=== PATIENT | female | born 1960 | race Hispanic/Latino ===

== ENCOUNTER 2018-01-06 09:45 | Inpatient (IN) | payer MEDICARE, MEDICAID ==
[2018-01-06 09:56] VITALS: BMI 24.5
[2018-01-06] MEDS ORDERED: HYDROmorphone 1 mg/ml ISec IVP STA ×2 (10:27→13:50)
[2018-01-06 10:59] LABS: BASO # 0.04 K/mm3 (0.0-2.0); BASO % 0.3 % (0.0-3.0); EOS # 0.3 (0.0-0.7); EOS % 2.4 % (1.5-5.0); GRAN # 9.28 (1.4-6.5); GRAN % 72.6 % (50.0-68.0); HEMOGLOBIN 15.7 g/dL (12.0-16.0); LYMPH # 2.4 (1.2-3.4); LYMPH % 18.8 % (22.0-35.0); MEAN CELL VOLUME 90.1 fl (80.0-105.0); MEAN CORPUSCULAR HEMOGLOBIN 30.5 pg (25.0-35.0); MEAN CORPUSCULAR HGB CONC 33.9 g/dl (31.0-37.0); MEAN PLATELET VOLUME 10.6 fl (7.0-11.0); MONO # 0.8 (0.1-0.6); MONO % 5.9 % (1.0-6.0); RBC 5.14 10^6/uL (3.5-6.1); RED CELL DISTRIBUTION WIDTH 12.8 % (11.5-14.5); WHITE BLOOD COUNT 12.8 10^3/ul (4.5-11.0)
[2018-01-06 11:09] LABS: INR 1.01 (0.93-1.08); PARTIAL THROMBOPLASTIN TIME 27.4 Seconds (25.1-36.5); PROTHROMBIN TIME 11.6 SECONDS (9.4-12.5)
[2018-01-06 11:17] LABS: ALB/GLOB RATIO 1.4 (1.1-1.8); ALBUMIN 3.8 g/dL (3.0-4.8); ALT/SGPT 38 U/L (7-56); AST/SGOT 33 U/L (14-36); BLOOD UREA NITROGEN 12 mg/dL (7-21); CALCIUM 9.8 mg/dL (8.4-10.5); GFR AFRICAN-AMERICAN > 60; GFR NON-AFRICAN AMERICAN > 60
--- NOTE | 2018-01-06 11:46 | RAD ---
PROCEDURE: CHEST RADIOGRAPH, 1 VIEW HISTORY: r/o infiltrate COMPARISON: 09/23/[address] place. FINDINGS: LUNGS: The lungs are well inflated and clear. There is a stable calcified granuloma in the left upper lobe. PLEURA: No pneumothorax or pleural fluid seen. CARDIOVASCULAR: Normal. OSSEOUS STRUCTURES: No significant abnormalities. VISUALIZED UPPER ABDOMEN: Normal. OTHER FINDINGS: None. IMPRESSION: No active pulmonary disease.
--- NOTE | 2018-01-06 11:47 | RAD ---
PROCEDURE: Left Hip X-ray Radiographs. HISTORY: fall r/o fx COMPARISON: None. FINDINGS: BONES: The pelvic ring is intact. There is an acute impacted left intertrochanteric fracture. JOINTS: Normal. SOFT TISSUES: Normal. OTHER FINDINGS: None. IMPRESSION: Acute impacted left intertrochanteric fracture.
--- NOTE | 2018-01-06 12:30 | ED PDOC ---
Arrival/HPI - General Chief Complaint: Trauma Time Seen by Provider: 01/06/18 10:19 - History of Present Illness Narrative History of Present Illness (Text): 01/06/18 14:22 Marietta Mancuso is a 57 year old female, whose past medical history includes CAD s/ p PCI with 2 stent placement, COPD, Diabetes Mellitus, Peptic Ulcer Disease, and Diverticulitis, who presents to the emergency department complaining of left hip pain s/p fall. Patient claims the sidewalk was uneven, where she tripped and fell. Patient denies any head injury, LOC, fever, chills, chest pain , shortness of breath, nausea, vomiting, diarrhea, back pain, neck pain, headache, dizziness, or any other complaints. Time/Duration: Prior to Arrival Symptom Onset: Sudden Symptom Course: Unchanged Activities at Onset: Light Context: Walking Past Medical History - Provider Review Nursing Documentation Reviewed: Yes - Infectious Disease Hx of Infectious Diseases: None - Tetanus Immunization Tetanus Immunization: Unknown - Reproductive Menopause: Yes - Cardiac Hx Angina: (chest pain) Hx Hypertension: Yes - Pulmonary Hx Asthma: Yes Hx Chronic Obstructive Pulmonary Disease (COPD): Yes - Neurological Hx Paralysis: No - HEENT Hx HEENT Disorder: No - Renal Hx Renal Disorder: No - Endocrine/Metabolic Hx Endocrine Disorders: Yes Hx Diabetes Mellitus Type 2: Yes (iddm) - Hematological/Oncological Hx Blood Transfusions: No Hx Blood Transfusion Reaction: No - Integumentary Hx Dermatological Disorder: No - Musculoskeletal/Rheumatological Hx Musculoskeletal Disorders: Yes (LUMBAR STENOSIS,C SPINE SX) - Gastrointestinal Hx Gastrointestinal Disorders: Yes Hx Diverticulitis: Yes Other/Comment: COLON POLYPS, - Genitourinary/Gynecological Hx Genitourinary Disorders: No - Psychiatric Hx Emotional Abuse: No Hx Physical Abuse: No Hx Substance Use: No - Surgical History Hx Coronary Stent: Yes (x2 2009) - Anesthesia Hx Anesthesia: Yes Hx Anesthesia Reactions: No Hx Malignant Hyperthermia: No - Suicidal Assessment Feels Threatened In Home Enviroment: No Family/Social History - Physician Review Nursing Documentation Reviewed: Yes Family/Social History: Unknown Family HX Smoking Status: Light Smoker < 10 Cigarettes Daily Hx Alcohol Use: No Hx Substance Use: No Hx Substance Use Treatment: No Allergies/Home Meds Allergies/Adverse Reactions: Allergies MYCINS Allergy (Mild, Uncoded 01/06/18 15:18) ANAPHYLAXIS Home Medications: Home Meds Medication Instructions Recorded Confirmed busPIRone [Buspar] 10 mg PO BID 11/15/15 01/06/18 Aspirin [Ecotrin] 81 mg PO DAILY 02/28/16 01/06/18 Atenolol [Tenormin] 50 mg PO QAM 02/28/16 01/06/18 Pregabalin [Lyrica] 200 mg PO BID 02/28/16 01/06/18 Levocetirizine Dihydrochloride 5 mg PO DAILY 09/16/16 01/06/18 [Xyzal] GlipiZIDE [Glipizide] 10 mg PO DAILY 10/08/16 01/06/18 Montelukast [Singulair] 10 mg PO DAILY 10/08/16 01/06/18 Review of Systems - Physician Review All systems were reviewed & negative as marked: Yes - Review of Systems Constitutional: Normal Eyes: Normal ENT: Normal Respiratory: Normal. absent: SOB, Cough Cardiovascular: Normal. absent: Chest Pain, Palpitations Gastrointestinal: Normal. absent: Abdominal Pain, Diarrhea, Nausea, Vomiting Genitourinary Female: Normal. absent: Dysuria, Frequency, Hematuria, Urine Output Changes Musculoskeletal: Arthralgias (Hip pain). absent: Back Pain, Neck Pain Skin: Normal. absent: Rash Neurological: Normal. absent: Headache, Dizziness Endocrine: Normal Hemo/Lymphatic: Normal Psychiatric: Normal Physical Exam Vital Signs Reviewed: Yes Vital Signs Temp Pulse Resp BP Pulse Ox 01/06/18 13:45 60 18 90/58 L 95 01/06/18 09:55 98.3 F 66 18 114/63 98 Temperature: Afebrile Blood Pressure: Normal Pulse: Regular Respiratory Rate: Normal Appearance: Positive for: Well-Appearing, Non-Toxic, Comfortable Pain Distress: None Mental Status: Positive for: Alert and Oriented X 3 - Systems Exam Head: Present: Atraumatic, Normocephalic Pupils: Present: PERRL Extroacular Muscles: Present: EOMI Conjunctiva: Present: Normal Mouth: Present: Moist Mucous Membranes Neck: Present: Normal Range of Motion Respiratory/Chest: Present: Clear to Auscultation, Good Air Exchange. No: Respiratory Distress, Accessory Muscle Use Cardiovascular: Present: Regular Rate and Rhythm, Normal S1, S2. No: Murmurs Abdomen: Present: Normal Bowel Sounds. No: Tenderness, Distention, Peritoneal Signs Back: Present: Normal Inspection. No: CVA Tenderness, Midline Tenderness, Paraspinal Tenderness Upper Extremity: Present: Normal Inspection. No: Cyanosis, Edema Lower Extremity: Present: Tenderness (tenderness diffused through left hip. minimal movement of left hip). No: Edema, CALF TENDERNESS Neurological: Present: GCS=15, CN II-XII Intact, Speech Normal Skin: Present: Warm, Dry, Normal Color. No: Rashes Psychiatric: Present: Alert, Oriented x 3, Normal Insight, Normal Concentration Medical Decision Making ED Course and Treatment: 01/06/18 12:29 Impression: 57 year old female presents to the emergency department complaining of left hip pain s/p fall. Plan: -- EKG -- Labs -- Lipid Panel -- Magnesium, Phosphorous -- Duoneb -- Tenormin -- Glucotrol -- Dilaidid -- HumuLIN -- Reassess and disposition Progress Notes: Case discussed with Dr. Burciaga, who is aware and agrees with plan. Accepts pt into his service. Case discussed with Dr. Donahue, who is aware and agrees with plan. 01/06/18 14:34 EKG reviewed, shows Sinus tachycardia at 68 bpm. NST/T wave changes. - Lab Interpretations Lab Results: 01/07/18 06:00 01/07/18 06:00 Lab Results 01/07/18 10:57: POC Glucose (mg/dL) 187 H 01/07/18 07:27: POC Glucose (mg/dL) 193 H 01/07/18 06:00: TSH 3rd Generation 0.50 01/07/18 06:00: Hemoglobin A1c 11.8 H 01/07/18 06:00: Sodium 140, Potassium 4.1, Chloride 106, Carbon Dioxide 28, Anion Gap 10, BUN 6 L, Creatinine 0.5 L, Est GFR ( Amer) > 60, Est GFR ( Non-Af Amer) > 60, Random Glucose 181 H, Calcium 8.7, Phosphorus 2.3 L, Magnesium 1.6 L, Total Bilirubin 0.5, AST 36, ALT 47, Alkaline Phosphatase 56, Total Protein 5.6 L, Albumin 3.2, Globulin 2.4, Albumin/Globulin Ratio 1.3, Triglycerides 209 H, Cholesterol 203 H, LDL Cholesterol Direct 122, HDL Cholesterol 43 01/07/18 06:00: WBC 8.4 D, RBC 4.43, Hgb 13.2, Hct 40.4, MCV 91.2, MCH 29.8, MCHC 32.7, RDW 13.1, Plt Count 162, MPV 10.3, Gran % 65.3, Lymph % (Auto) 23.5, [place] % (Auto) 10.5 H, Eos % (Auto) 0.5 L, Baso % (Auto) 0.2, Gran # 5.47, Lymph # (Auto) 2.0, [place] # (Auto) 0.9 H, Eos # (Auto) 0.0, Baso # (Auto) 0.02 01/06/18 23:11: POC Glucose (mg/dL) 135 H 01/06/18 21:30: WBC 11.1 H, RBC 4.45, Hgb 13.4 D, Hct 40.4, MCV 90.8, MCH 30.1 , MCHC 33.2, RDW 12.9, Plt Count 179, MPV 10.1, Gran % 75.2 H, Lymph % (Auto) 15.6 L, [place] % (Auto) 8.9 H, Eos % (Auto) 0.1 L, Baso % (Auto) 0.2, Gran # 8.35 H, Lymph # (Auto) 1.7, [place] # (Auto) 1.0 H, Eos # (Auto) 0.0, Baso # (Auto) 0.02 01/06/18 15:12: POC Glucose (mg/dL) 260 H 01/06/18 14:18: POC Glucose (mg/dL) 233 H 01/06/18 13:30: Blood Type Confirm B POSITIVE 01/06/18 11:27: Blood Type B POSITIVE, Antibody Screen Negative, BBK History Checked No verified bt 01/06/18 10:40: Sodium 135, Potassium 4.7, Chloride 99, Carbon Dioxide 25, Anion Gap 15, BUN 12, Creatinine 0.5 L, Est GFR ( Amer) > 60, Est GFR ( Non-Af Amer) > 60, Random Glucose 407 H* D, Calcium 9.8, Total Bilirubin 0.5, AST 33, ALT 38, Alkaline Phosphatase 72, Total Protein 6.5, Albumin 3.8, Globulin 2.7, Albumin/Globulin Ratio 1.4 01/06/18 10:40: PT 11.6, INR 1.01, APTT 27.4 01/06/18 10:40: WBC 12.8 H D, RBC 5.14, Hgb 15.7, Hct 46.3, MCV 90.1, MCH 30.5, MCHC 33.9, RDW 12.8, Plt Count 193, MPV 10.6, Gran % 72.6 H, Lymph % (Auto) 18.8 L, [place] % (Auto) 5.9, Eos % (Auto) 2.4, Baso % (Auto) 0.3, Gran # 9.28 H, Lymph # (Auto) 2.4, [place] # (Auto) 0.8 H, Eos # (Auto) 0.3, Baso # (Auto) 0.04 - RAD Interpretation Radiology Orders: 01/06/18 10:28 CHEST ONE VIEW [RAD] Stat HIP MIN 2V W/ PELVIS LT [RAD] Stat 01/06/18 15:57 FLUOROSCOPY UP TO 1 HOUR [RAD] Urgent - Medication Orders Current Medication Orders: Acetaminophen (Tylenol 325mg Tab) 650 mg PO Q4H PRN PRN Reason: Pain, moderate (4-7) Albuterol/Ipratropium (Duoneb 3 Mg/0.5 Mg (3 Ml) Ud) 3 ml IH Q4H PRN PRN Reason: Shortness of Breath Last Admin: 01/07/18 09:00 Dose: 3 ml Atenolol (Tenormin) 50 mg PO DAILY [facility] Last Admin: 01/07/18 09:45 Dose: 50 mg MAR Pulse and Blood Pressure Document 01/07/18 09:45 DSZ (Rec: 01/07/18 09:46 DSZ [id number]) Pulse Pulse Rate (60-90) 90 Blood Pressure Blood Pressure (100/60-150/90) 137/66 Docusate Sodium (Colace) 100 mg PO BID [facility] Last Admin: 01/07/18 17:37 Dose: 100 mg Enoxaparin Sodium (Lovenox) 30 mg SC DAILY [facility] PRN Reason: Protocol Last Admin: 01/07/18 10:02 Dose: 30 mg Subcutaneous Administrations Document 01/07/18 10:02 DSZ (Rec: 01/07/18 10:02 DSZ [id number]) Injection Site MAR Injection Site Right Abdomen Charges for Administration # of Subcutaneous Administrations 1 Glipizide (Glucotrol) 10 mg PO 1630 [facility] Last Admin: 01/07/18 16:00 Dose: 10 mg Sodium Chloride (Sodium Chloride 0.9%) 1,000 mls @ 100 mls/hr IV .Q10H [facility] Last Admin: 01/06/18 13:12 Dose: 100 mls/hr eMAR Start Stop Document 01/06/18 13:12 RG (Rec: 01/06/18 13:12 RG [id number]) Intravenous Solution Start Date 01/06/18 Start Time 13:12 Insulin Detemir (Levemir) 15 unit SC QPM [facility] Last Admin: 01/07/18 17:39 Dose: 15 unit MAR Blood Glucose Document 01/07/18 17:39 DSZ (Rec: 01/07/18 17:39 DSZ [id number]) Blood Glucose Finger Stick Blood Glucose (70-120) 226 Subcutaneous Administrations Document 01/07/18 17:39 DSZ (Rec: 01/07/18 17:39 DSZ [id number]) Injection Site MAR Injection Site Right Arm Charges for Administration # of Subcutaneous Administrations 1 Insulin Human Regular (Humulin R Med) 0 units SC ACHS [facility] PRN Reason: Protocol Last Admin: 01/07/18 16:45 Dose: 3 units MAR Blood Glucose Document 01/07/18 16:45 DSZ (Rec: 01/07/18 16:45 DSZ [id number]) Blood Glucose Finger Stick Blood Glucose (70-120) 226 Subcutaneous Administrations Document 01/07/18 16:45 DSZ (Rec: 01/07/18 16:45 DSZ [id number]) Injection Site MAR Injection Site Right Arm Charges for Administration # of Subcutaneous Administrations 1 Ketorolac Tromethamine (Toradol) 60 mg IM Q8H PRN PRN Reason: Pain, severe (8-10) Stop: 01/12/18 11:03 Morphine Sulfate (Morphine) 2 mg IVP Q4H PRN PRN Reason: Pain, moderate (4-7) Last Admin: 01/07/18 20:01 Dose: 2 mg MAR Pain Assessment Document 01/07/18 20:01 MAD (Rec: 01/07/18 20:02 [id number]) Pain Reassessment Is this a pain reassessment? Yes Sleep Is patient sleeping during reassessment? No Presence of Pain Presence of Pain Yes Pain Scale Used Pain Scale Used Numeric Location Left, Right or Bilateral Left Pain Location Body Site Hip Description Description Throbbing Intensity of Pain at present 8 Acceptable Level of Pain 3 Pain Behavior Restlessness Aggravating Factors Changing Position Exercise/Activity Alleviating Factors/Management Medication Techniques Alleviating Factors Medication IVP Administration Document 01/07/18 20:01 MAD (Rec: 01/07/18 20:02 [id number]) Charges for Administration # of IVP Administrations 1 Sitagliptin Phosphate (Januvia) 100 mg PO DAILY [facility] Last Admin: 01/07/18 09:43 Dose: 100 mg Discontinued Medications Hydromorphone HCl (Dilaudid) 1 mg IVP STAT STA Stop: 01/06/18 10:28 Last Admin: 01/06/18 10:47 Dose: 1 mg MAR Pain Assessment Document 01/06/18 10:47 RG (Rec: 01/06/18 10:51 [id number] Pain Reassessment Is this a pain reassessment? Yes IVP Administration Document 01/06/18 10:47 RG (Rec: 01/06/18 10:51 [id number] Charges for Administration # of IVP Administrations 1 Hydromorphone HCl (Dilaudid) 1 mg IVP STAT STA Stop: 01/06/18 13:51 Last Admin: 01/06/18 14:27 Dose: 1 mg MAR Pain Assessment Document 01/06/18 14:27 (Rec: 01/06/18 14:27 [id number] Pain Reassessment Is this a pain reassessment? Yes Sleep Is patient sleeping during reassessment? Yes Pain Scale Used Pain Scale Used Numeric Location Pain Location Body Site Hip Description Description Constant Pain Behavior Moaning IVP Administration Document 01/06/18 14:27 RG (Rec: 01/06/18 14:27 [id number] Charges for Administration # of IVP Administrations 1 Hydromorphone HCl (Dilaudid) 0.5 mg IVP Q15M PRN PRN Reason: Pain, moderate (4-7) Stop: 01/06/18 19:35 Sodium Chloride (Sodium Chloride 0.9%) 1,000 mls @ 75 mls/hr IV .[id number] NOELLE Stop: 01/06/18 19:46 Last Admin: 01/07/18 05:49 Dose: 75 mls/hr eMAR Start Stop Document 01/07/18 05:49 MAD (Rec: 01/07/18 05:50 MAD [id number]) Intravenous Solution Start Date 01/07/18 Start Time 05:50 Magnesium Sulfate/Dextrose (Magnesium Sulfate 1 Gm/100 Ml D5w) 1 gm in 100 mls @ 100 mls/hr IVPB ONCE ONE Stop: 01/07/18 10:26 Last Admin: 01/07/18 10:12 Dose: 100 mls/hr eMAR Start Stop Document 01/07/18 10:12 DSZ (Rec: 01/07/18 10:12 DSZ [id number]) Intravenous Solution Start Date 01/07/18 Start Time 10:12 Potassium Phosphate 15 mmole/ (Dextrose) 255 mls @ 42.5 mls/hr IVPB ONCE ONE Stop: 01/07/18 15:27 Last Admin: 01/07/18 11:09 Dose: 42.5 mls/hr eMAR Start Stop Document 01/07/18 11:09 DSZ (Rec: 01/07/18 11:09 DSZ [id number]) Intravenous Solution Start Date 01/07/18 Start Time 11:09 Insulin Human Regular (Humulin R) 4 units IVP STAT STA Stop: 01/06/18 12:45 Last Admin: 01/06/18 13:12 Dose: 4 units MAR Blood Glucose Document 01/06/18 13:12 RG (Rec: 01/06/18 13:12 [id number]) Blood Glucose Finger Stick Blood Glucose (70-120) 402 IVP Administration Document 01/06/18 13:12 RG (Rec: 01/06/18 13:12 [id number]) Charges for Administration # of IVP Administrations 1 Oxycodone/Acetaminophen (Percocet 5/325 Mg Tab) 1 tab PO ONCE ONE Stop: 01/07/18 08:27 Last Admin: 01/07/18 08:55 Dose: 1 tab [facility] Pain Assessment Document 01/07/18 08:55 DSZ (Rec: 01/07/18 08:56 DSZ [id number]) Pain Reassessment Is this a pain reassessment? No Sleep Is patient sleeping during reassessment? No Presence of Pain Presence of Pain Yes Pain Scale Used Pain Scale Used Numeric Location Left, Right or Bilateral Left Pain Location Body Site Hip Description Description Intermittent Intensity of Pain at present 9 Acceptable Level of Pain 1 Pain Behavior Withdrawal from Touch Aggravating Factors Contant Alleviating Factors/Management Medication Techniques Alleviating Factors Medication Re-Assess: [facility] Pain Assessment Document 01/07/18 09:55 DSZ (Rec: 01/07/18 11:54 DSZ [id number]) Pain Reassessment Is this a pain reassessment? Yes Sleep Is patient sleeping during reassessment? No Presence of Pain Presence of Pain Yes Pain Scale Used Pain Scale Used Numeric Location Left, Right or Bilateral Left Pain Location Body Site Hip Description Description Intermittent Intensity of Pain at present 5 Acceptable Level of Pain 3 Pain Behavior Withdrawal from Touch Aggravating Factors Contant Alleviating Factors/Management Medication Techniques Alleviating Factors Medication Pneumococcal Polyvalent Vaccine (Pneumovax 23 Vaccine) 0.5 ml IM .ONCE ONE Stop: 01/06/18 21:01 Last Admin: 01/07/18 19:12 Dose: Immunization Registry Document 01/07/18 19:12 DSZ (Rec: 01/07/18 19:12 DSZ [id number]) Immunization Registry Consent Date 01/06/18 - Scribe Statement The provider has reviewed the documentation as recorded by the Scribava Boone All medical record entries made by the Scribava were at my direction and personally dictated by me. I have reviewed the chart and agree that the record accurately reflects my personal performance of the history, physical exam, medical decision making, and the department course for this patient. I have also personally directed, reviewed, and agree with the discharge instructions and disposition. Disposition/Present on Arrival - Present on Arrival Any Indicators Present on Arrival: Yes History of DVT/PE: No History of Uncontrolled Diabetes: Yes Urinary Catheter: No History of Decub. Ulcer: No History Surgical Site Infection Following: None - Disposition Have Diagnosis and Disposition been Completed?: Yes Diagnosis: Hip fracture, Hyperglycemia Disposition: HOSPITALIZED Disposition Time: 12:30 Condition: STABLE
[2018-01-06] MEDS ORDERED: Insulin Regular 1 UNITS/0.01 ML ML IVP STA (12:44)
[2018-01-06] MEDS: Sodium Chloride 0.9% 1,000 ML IV SCH (13:12)
[2018-01-06] MEDS ORDERED: Insulin Human NPH/Reg 70/30 Vial(3 ml) SC STA (13:58)
--- NOTE | 2018-01-06 14:38 | HP ---
HISTORY OF PRESENT ILLNESS: The patient is a 57 year old woman with a past medical history of CAD s/p PCI with stent placement x 2 and COPD who presented to [facility] ED for evaluation of acute onset of left hip pain s/p mechanical fall. The patient reports that she was in her usual state of health until the day of presentation to the ED when she tripped and sustained a fall to her left side. She had immediate onset of severe pain and called EMS who brought her to the ED. Examination in the ED disclosed an acute impacted left intertrochanteric fracture. She was evaluated by Dr. Pratt (Orthopedic Surgery) with the plan to take her promptly to the OR after obtaining cardiac clearance from her director of marketing analytics, Dr. Benjamin, owing to her underlying cardiac disease. PAST MEDICAL HISTORY: As per HPI, also T2DM, PUD, anxiety disorder and diverticulosis with prior admissions for diverticulitis. PAST SURGICAL HISTORY: Cholecystectomy, appendectomy, partial colectomy secondary to extensive diverticulosis and diskectomy with fusion of C4-C6. ALLERGIES: Macrolides (cause rash) and IV contrast (causes rash). HOME MEDICATIONS: Ventolin HFA 2 puffs q. 4 hours p.r.n. wheeze, Advair 250/50 one puff q. 12 hours, Singulair 10 mg p.o. daily, Atenolol 50 mg p.o. daily, ASA 81 mg p.o. daily, Glipizide XL 10 mg p.o. daily, Lyrica 200 mg p.o. b.i.d. and Risperidone 1 mg p.o. at bedtime. FAMILY HISTORY: Noncontributory. SOCIAL HISTORY: The patient reports an active 20-pack year smoking and social alcohol use. She denies illicit drug abuse. REVIEW OF SYSTEMS: The patient denies chest pain, palpitations, exertional dyspnea, orthopnea, lower extremity edema, claudication, presyncope or headaches. The remainder of review of systems is as per HPI. PHYSICAL EXAMINATION: VITAL SIGNS: Temperature 98.3, pulse 66, blood pressure 114/63, respiratory rate 18, oxygen saturation 98% on room air. GENERAL: Moderate distress secondary to left hip pain. HEENT: Normocephalic, atraumatic. PERRL, EOMI. No scleral icterus. No conjunctival pallor. NECK: Supple with full range of motion. No JVD. No bruits. LUNGS: Clear to auscultation. CARDIOVASCULAR: Regular rate and rhythm. Normal S1 and S2. ABDOMEN: Normoactive bowel sounds. Soft, nontender and nondistended. EXTREMITIES: Decreased range of motion to left lower extremity secondary to pain. No edema. NEUROLOGIC: Awake, alert and oriented x 3. No focal motor deficits. LABORATORY DATA: CBC reviewed and unremarkable. CMP reviewed and unremarkable with the exception of a glucose of 407. IMAGING STUDIES: 1. Chest x-ray demonstrates no acute pathology. 2. Left pelvic x-ray demonstrates acute impacted left intertrochanteric fracture. ASSESSMENT: The patient is a 57 year old woman with a past medical history of hypertension, T2DM with diabetic neuropathy, CAD s/p PCI with stent placement and COPD who presented s/p mechanical fall with a sustained left hip fracture and who was admitted for orthopedic repair. PLAN: 1. Acute fracture of the left hip. X-rays reviewed and the case was discussed with Dr. Pratt of Orthopedic Surgery. He is requesting cardiac clearance from Dr. Benjamin prior to taking the patient to the OR. 2. Hypertension. Blood pressure controlled. Resume Atenolol 50 mg p.o. daily. 3. COPD. Continue supplemental oxygen and bronchodilators as needed. 4. Type 2 diabetes mellitus with diabetic neuropathy. Resume Glipizide 10 mg p.o. daily and start medium-dose insulin sliding scale. 5. CAD s/p PCI with stent placement. We will hold aspirin in anticipation of OR and resume when cleared from orthopedic standpoint. Continue Atenolol 50 mg p.o. daily as above. The patient declines statin therapy because of prior history of myopathy. 6. Anxiety. The patient is on Xanax on an outpatient basis but we will hold this in anticipation of OR. 7. Prophylaxis. We will start Protonix for GI prophylaxis and initiate DVT prophylaxis when okay as per Orthopedic Surgery. CODE STATUS: Full code. Yasmany Alston MD [facility]
[2018-01-06] MEDS ORDERED: Insulin Regular 100 units/ml ONE (15:33)
[2018-01-06] MEDS ORDERED: Bupivacaine 0.5% Inj(30mL) ONE (15:47)
[2018-01-06] MEDS ORDERED: Propofol 10 mg/ml Inj (20 ML) ONE (15:48)
[2018-01-06] MEDS ORDERED: Midazolam 2 MG/2 ML VIAL ONE (15:49)
[2018-01-06] MEDS ORDERED: Rocuronium 10 mg/ml (5 ml) ONE (15:53)
[2018-01-06] MEDS ORDERED: CeFAZolin 1 gm in NS 100ml IVPB ONE (16:28)
[2018-01-06] MEDS ORDERED: ePHEDrine 50 mg/ml Inj ONE (16:49)
[2018-01-06] MEDS ORDERED: Glycopyrrolate 0.2 mg/ml (2ml vial) ONE (17:11)
[2018-01-06] MEDS ORDERED: HYDROmorphone 0.5 mg/0.5 ml ISec IVP PRN (17:35)
[2018-01-06] MEDS ORDERED: Sodium Chloride 0.9% 1,000 ML IV SCH (17:45)
--- NOTE | 2018-01-06 17:46 | CARD ---
APPROVED REPORT EKG Measurement Heart [id number] <Conclusion> Normal sinus rhythm Normal ECG
[2018-01-06] MEDS ORDERED: HYDROmorphone 0.5 mg/0.5 ml ISec ONE ×2 (17:57→18:14)
[2018-01-06] MEDS: Insulin Detemir 100 units/ml Vial (Levemir) SC SCH (19:29)
[2018-01-06] MEDS ORDERED: Pneumococcal 23-Valent Vaccine IM ONE (21:00)
[2018-01-06] MEDS ORDERED: Influenza Vaccine 60 mcg/0.5 mL SYR (4YR UP) IM ONE (21:00)
[2018-01-06 21:32] LABS: BASO # 0.02 K/mm3 (0.0-2.0); BASO % 0.2 % (0.0-3.0); EOS % 0.1 % (1.5-5.0); GRAN # 8.35 (1.4-6.5); GRAN % 75.2 % (50.0-68.0); HEMOGLOBIN 13.4 g/dL (12.0-16.0); LYMPH # 1.7 (1.2-3.4); LYMPH % 15.6 % (22.0-35.0); MEAN CELL VOLUME 90.8 fl (80.0-105.0); MEAN CORPUSCULAR HEMOGLOBIN 30.1 pg (25.0-35.0); MEAN CORPUSCULAR HGB CONC 33.2 g/dl (31.0-37.0); MEAN PLATELET VOLUME 10.1 fl (7.0-11.0); MONO % 8.9 % (1.0-6.0); RBC 4.45 10^6/uL (3.5-6.1); RED CELL DISTRIBUTION WIDTH 12.9 % (11.5-14.5); WHITE BLOOD COUNT 11.1 10^3/ul (4.5-11.0)
[2018-01-06] MEDS: Insulin Reg-MEDIUM-Coverage SC SCH (23:12)
[2018-01-06] MEDS: Morphine 2 mg/ml ISec IVP PRN (23:15)
--- NOTE | 2018-01-06 23:51 | CON ---
DATE: 01/06/2018 ORTHOPEDIC CONSULTATION HISTORY OF PRESENT ILLNESS: The patient is a 57-year-old female, who slipped and fell early this morning, came to the ER with tremendous hip pain by ambulance and x-ray shows displaced intertrochanteric fracture of left hip. No fractures previous in her life, but this fracture been causing tremendous pain. We will plan doing a surgery as soon as possible right today after she is cleared by Dr. Vidales because that is her heart doctor and Dr. Yasmany Alston is her medical doctor. So once she is cleared, we will do her surgery this afternoon with a Peritroch soheila from [employer] and then the pain will be much less and will be able to get up by the bed and then she may either just go into her subacute rehab in a couple of days once her surgery is successful. the risks and benefits and she may need blood replacement. Ra Pratt DO [facility]
--- NOTE | 2018-01-07 02:06 | CON ---
DATE: 01/06/2018 SERVICE: Cardiology. REASON FOR CONSULTATION: Preop evaluation, risk stratification for hip surgery status post fall - mechanical; history of coronary artery disease status post stent 2008. BRIEF CLINICAL HISTORY: This is a 57-year-old female with past medical history significant for COPD, extensive tobacco abuse, diabetes, hypertension, hyperlipidemia, coronary artery disease status post PTCA in 2008 and subsequent multiple stress tests were normal, who had mechanical fall and sustained fracture of the left hip requiring OR internal fixation. Denies any chest pain, denies shortness breath, denies any palpitation, denies any loss of consciousness, denies any dizziness. PAST MEDICAL HISTORY: Significant for diabetes, hypertension, hyperlipidemia, coronary artery disease status post stent in the past in 2008. The patient has had multiple stress tests done in 2013, 2014, 2015, and 2016. The most recent stress test in 2017, 05/03/2017, the test showed normal myocardial perfusion study, a fixed defect, no reversible ischemia, ejection fraction 63 percent. On comparing with the last study dated 03/25/2016, no significant change dated 05/03/2017. Patient also had echocardiography, 04/28/2017, that showed ejection fraction 25%, trace mitral regurgitation and mild tricuspid regurgitation. CURRENT MEDICATIONS: The patient is taking BuSpar, pregabalin, Singulair, glipizide, atenolol, aspirin, albuterol. ALLERGIES: QUESTIONABLE CONTRAST DYE AND ERYTHROMYCIN, GETS ANAPHYLACTIC. REVIEW OF THE SYSTEMS: As per HPI. PHYSICAL EXAMINATION: VITAL SIGNS: As follows: Temperature afebrile, heart rate 60, blood pressure 114/63. HEENT: PERRLA. Extraocular muscles intact. NECK: Supple. No carotid bruit. No thyromegaly. CHEST: Clear to auscultation. HEART: S1 and S2 regular. ABDOMEN: Soft. EXTREMITIES: Clubbing and cyanosis negative. LABORATORY DATA: Blood workup as follows: WBC 12.8, hemoglobin 15.7, hematocrit 46.3, and platelet count 193. Chemistry shows sodium 135, potassium 4.7, chloride 99, carbon dioxide 25, anion gap of 15, BUN 12, and BUN 0.5, glucose 407, total protein 6.5, albumin 3.7, albumin-globulin ratio 1.4. EKG shows normal sinus, no acute ST-T changes noted. IMPRESSION: Status post mechanical fall, hip fracture left, coronary artery disease status post stent in 2008, subsequent multiple stress tests including last year in May, essentially negative. Last echo shows preserved left ventricular function, ejection fraction 55%, trace mitral regurgitation, mild tricuspid regurgitation, diabetes, hypertension, hyperlipidemia, poorly-controlled diabetes with sugar 407, history of multiple surgeries including discectomy, appendectomy, and diverticular colon disease status post part of the intestine was removed - partial colectomy, history of cholecystectomy as mentioned, and C4-C8 discectomy was done because of prolapsed intervertebral disk. The patient actively is a tobacco abuser. When we put together everything, the patient is a moderate risk for surgery , but no contraindication. The patient can go with a moderate risk, no evidence of ischemia, no evidence of arrhythmia, no evidence of congestive heart failure. Recent stress test in May was essentially negative. We will clear the patient to go for surgery, continue perioperative beta-darrion with moderate risk. We will give 10 units of subcutaneous insulin stat to lower the sugar and check after half an hour, talked to the nurse, if it okay patient will be cleared to go for surgery. Will follow up perioperatively. We will get lipid profile, TSH, hemoglobin A1c tomorrow. Thank you, Dr. Pratt/Dr. Alston, for providing us the opportunity in taking care of the patient, Marietta Mancuso. Katerine Vidales MD cc: DO Yasmany George MD
[2018-01-07] MEDS: Albuterol-Ipratrop 3 mg / 0.5 (3 ml) UD IH PRN ×3 (05:12→23:56)
[2018-01-07] MEDS: Morphine 2 mg/ml ISec IVP PRN ×4 (06:16→20:01)
[2018-01-07 06:42] LABS: BASO # 0.02 K/mm3 (0.0-2.0); BASO % 0.2 % (0.0-3.0); EOS % 0.5 % (1.5-5.0); GRAN # 5.47 (1.4-6.5); GRAN % 65.3 % (50.0-68.0); HEMOGLOBIN 13.2 g/dL (12.0-16.0); LYMPH % 23.5 % (22.0-35.0); MEAN CELL VOLUME 91.2 fl (80.0-105.0); MEAN CORPUSCULAR HEMOGLOBIN 29.8 pg (25.0-35.0); MEAN CORPUSCULAR HGB CONC 32.7 g/dl (31.0-37.0); MEAN PLATELET VOLUME 10.3 fl (7.0-11.0); MONO # 0.9 (0.1-0.6); MONO % 10.5 % (1.0-6.0); RBC 4.43 10^6/uL (3.5-6.1); RED CELL DISTRIBUTION WIDTH 13.1 % (11.5-14.5); WHITE BLOOD COUNT 8.4 10^3/ul (4.5-11.0)
[2018-01-07 07:04] LABS: LDL CHOLESTEROL 122 mg/dL (0-129)
[2018-01-07 07:13] LABS: ALB/GLOB RATIO 1.3 (1.1-1.8); ALBUMIN 3.2 g/dL (3.0-4.8); ALT/SGPT 47 U/L (7-56); AST/SGOT 36 U/L (14-36); BLOOD UREA NITROGEN 6 mg/dL (7-21); CALCIUM 8.7 mg/dL (8.4-10.5); GFR AFRICAN-AMERICAN > 60; GFR NON-AFRICAN AMERICAN > 60; HDL CHOLESTEROL 43 mg/dL (29-60)
[2018-01-07] MEDS: Insulin Reg-MEDIUM-Coverage SC SCH ×4 (08:03→22:22)
--- NOTE | 2018-01-07 08:25 | OP ---
PROCEDURE DATE: 01/06/2018 PREOPERATIVE DIAGNOSIS: Displaced intertrochanteric fracture, left hip. POSTOPERATIVE DIAGNOSIS: Displaced intertrochanteric fracture, left hip. PROCEDURE: Open reduction and internal fixation with Biomet Affixus nail using a nail 125 degree angle, 11 mm wide, and 180 mm long. The lag screw was 100 mm long x 10.5 mm with one locking screw 36 mm to the distal part of the soheila. SURGEON: Ra Pratt DO [employer] SURGEON: Dr. Gomes, general rn surgical pcu. TYPE OF ANESTHESIA: General via endotracheal tube. SUMMARY: The patient is a 57-year-old female who suffered a fall prior to admission today at 7:00 a.m. and came to the ER, found to have an intertrochanteric fracture of left hip displaced. The tremendous pain was not controlled with pain medications, so we got medical clearance from the attending and the cardiac doctor and performed ORIF with the Biomet peritrochanteric Affixus nail with general anesthesia via endotracheal tube. DESCRIPTION OF PROCEDURE: The patient was taken to the OR, the left hip prepped and draped in sterile fashion. Antibiotics given preop, Ancef 1 gm. X-rays showed that we could reduce the fracture with traction and rotation, and we made the incision to open the fracture 5 cm proximal to the greater trochanter from 2 cm going through the fascia and soft tissue entering the greater trochanter with a threaded-tip guidewire with the help of the C-arm. when it was in good position. We over-reamed that with a 17 mm reamer for 8 cm. Then with the beaded-tip guidewire inserted, we put in the 180 mm long Affixus intramedullary nail and positioned it so that the device for the lag screw was in line with the calcar both on AP and lateral projection and then we did that over, drilled with a reamer when it was in a good position for the planned lag screw which was going to be 100 mm long, and this was put in. Because the bone was so hard, firm and solid, not osteopenic, we had to use a tap to tap that area so we did not split the femoral head, and we did this tap, then put in the 100 mm long lag screw into firm, good subchondral bone, then secured the nail to the soheila with the locking device and put the traction off and put the locking screw distally with a third incision to lock the soheila distally. The second incision was put over the lag screw. Wounds were irrigated with normal saline and closed in layers utilizing 0-Vicryl for the deep layer, 2-0 Vicryl for the subcutaneous tissue, and skin with stainless steel foster. The patient was taken to the recovery room in good condition. Ra Pratt DO GALEN
[2018-01-07] MEDS ORDERED: Oxycodone/Acetaminophen 5/325 mg Tab PO ONE (08:26)
--- NOTE | 2018-01-07 08:40 | CP.PCM.PN ---
Subjective - Date & Time of Evaluation Date of Evaluation: 01/07/18 Time of Evaluation: 07:20 - Subjective Subjective: Seen and examined by me and Dr. Benjamin Reason for consult and follow up: Pre-op evaluation, risk stratification for left hip surgery post fall, status post left hip surgery, history of coronary artery disease post PTCA stent, in 2008., COPD,Diabetes, hypertension, hyperlipidemia, Denies chest pain,shortness of breath, complaints of 9/10 left hip pain Objective - Vital Signs/Intake and Output Vital Signs (last 24 hours): Temp Pulse Resp BP Pulse Ox 100.5 F H 91 H 18 144/64 90 L 01/07/18 07:30 01/07/18 07:30 01/07/18 07:30 01/07/18 07:30 01/07/18 07:30 Intake and Output: 01/07/18 01/07/18 06:59 18:59 Intake Total 1515 Output Total 600 Balance 915 - Medications Medications: Current Medications Albuterol/Ipratropium (Duoneb 3 Mg/0.5 Mg (3 Ml) Ud) 3 ml IH Q4H PRN PRN Reason: Shortness of Breath Last Admin: 01/07/18 05:12 Dose: 3 ml Atenolol (Tenormin) 50 mg PO DAILY [facility] Docusate Sodium (Colace) 100 mg PO BID [facility] Enoxaparin Sodium (Lovenox) 30 mg SC DAILY [facility] PRN Reason: Protocol Glipizide (Glucotrol) 10 mg PO 1630 [facility] Sodium Chloride (Sodium Chloride 0.9%) 1,000 mls @ 100 mls/hr IV .Q10H [facility] Last Admin: 01/06/18 13:12 Dose: 100 mls/hr Insulin Detemir (Levemir) 15 unit SC QPM [facility] Last Admin: 01/06/18 19:29 Dose: Not Given Insulin Human Regular (Humulin R Med) 0 units SC ACHS [facility] PRN Reason: Protocol Last Admin: 01/07/18 08:03 Dose: 1 units Morphine Sulfate (Morphine) 2 mg IVP Q4H PRN PRN Reason: Pain, moderate (4-7) Last Admin: 01/07/18 06:16 Dose: 2 mg Sitagliptin Phosphate (Januvia) 100 mg PO DAILY [facility] - Labs Labs: 01/07/18 06:00 01/07/18 06:00 PT 11.6 SECONDS (9.4-12.5) 01/06/18 10:40 INR 1.01 (0.93-1.08) 01/06/18 10:40 APTT 27.4 Seconds (25.1-36.5) 01/06/18 10:40 Assessment and Plan - Assessment and Plan (Free Text) Assessment: Post fall, status post left hip surgery, history of coronary artery disease post PTCA stent, in 2008.subsequent stress test were normal. COPD- well controlled ,Diabetes on insulin, blood sugar levels below 200 mg/dl hypertension well controlled with Tenormin. hyperlipidemia, Plan: Continue Tenormin 50 mg daily, continue Lovenox, continue insulin as ordered Left hip pain- given Morphine 2mg IV PRN Physical therapy for mobilization and walking BP Vital signs stable Lab reviewed Will follow up Plan and treatment reviewed with Dr. Benjamin
[2018-01-07] MEDS ORDERED: Magnesium Sulfate 1 gm in D5W 1 GM/100 ML BAG IVPB ONE (09:27)
[2018-01-07] MEDS ORDERED: Potassium Phosphate 15 MMOLE in Dextrose 5% In Water 250 ML IVPB ONE (09:28)
[2018-01-07] MEDS: Enoxaparin 30 mg Syringe SC SCH (10:02)
--- NOTE | 2018-01-07 12:48 | RAD ---
PROCEDURE: Fluoroscopy up to 1 hour HISTORY: O.R.I.F. LEFT FEMUR COMPARISON: TECHNIQUE: Fluoroscopy was provided in the operating room. 93 seconds of fluoro time were used. Five images were submitted FINDINGS: The study shows placement of a compression screw and soheila in the left hip IMPRESSION: As above
--- NOTE | 2018-01-07 13:20 | PN ---
DATE: 01/07/2018 LOCATION: Patient in room 562, bed 2. REASON FOR CONSULTATION AND FOLLOWUP: Status post fall and hip fracture; status post surgery for hip fracture; coronary artery disease, status post stent insertion; hypertension; diabetes; hyperlipidemia. SUBJECTIVE: Patient lying flat in bed without any cardiac symptoms like chest pain, shortness of breath, palpitations. She is complaining of pain at the hip fracture site where she had surgery. PHYSICAL EXAMINATION VITAL SIGNS: Blood pressure 144/64, yesterday pressure was 99/64 and 106/54; respirations 18; pulse 91; temperature 100.5. HEENT: Head is normocephalic. Eyes: Pupils are normal. Conjunctivae normal. Nose and throat normal. NECK: JVP low. Carotids equal. THORAX: AP diameter normal. LUNGS: Clear. CARDIOVASCULAR: S1 and S2. ABDOMEN: Soft, no tenderness. No organomegaly. EXTREMITIES: No clubbing. No cyanosis. LABORATORY DATA: Shows WBC 8.4, hemoglobin 13.2, hematocrit 40.4, platelets 162,000. Sodium 140, potassium 4.1. BUN 6, creatinine 0.5. Random glucose 181. TSH 0.50, triglycerides 209, cholesterol 203, LDL 122, HDL 43. Total protein 5.6, albumin 3.2. AST and ALT normal. Phosphorus 2.3 and magnesium 1.6. DIAGNOSES: Status post fracture, left hip; status post surgery, left hip; coronary artery disease; hypertension; hyperlipidemia; diabetes mellitus. The patient had stent put in 2008, then 2013, 2014, 2016 and 2016. Most recent stress test was on , which was normal, fixed defect, ejection fraction 62%. The patient had an echocardiogram on 04/28/2017 that showed ejection fraction of 25%, trace mitral regurgitation, mild tricuspid regurgitation. PLAN: Clinically, cardiac status stable. The patient is on glipizide 10 mg daily, insulin as ordered, Januvia 100 mg daily, Lovenox 30 mg daily, albuterol and ipratropium nebulizer therapy, IV fluids, atenolol 50 mg daily. Magnesium and phosphorus is low, we will replace those and we will repeat labs in the morning and we will follow. Katerine Benjamin MD [facility] # [phone]
--- NOTE | 2018-01-07 13:45 | PN ---
DATE: 01/07/2018 SUBJECTIVE: Patient underwent open reduction and internal fixation of her left hip fracture yesterday, and she is doing quite well. Hemoglobin is stable. She has pain, but I am going to try to avoid having narcotics and just give Tylenol with codeine or I will get her up out of bed as pain is not that great. She has much less pain than before the surgery and we will allow her to put partial weight on that left hip and do ambulation with a walker, weightbearing, and protect it with a walker and weightbearing to tolerance, looks dry. Because she we will get her up out of bed as soon as possible to facilitate decrease chance of pneumonia. We will follow her closely. Ra Pratt DO
--- NOTE | 2018-01-07 15:29 | PN ---
DATE: SUBJECTIVE: The patient is in room 562, bed 2. She is on postoperative day #1 for a fractured hip. There had been no acute events overnight. At this point, the patient has no complaints. OBJECTIVE: VITAL SIGNS: Temperature of 100.5, pulse rate of 91, blood pressure of 144/64, respiratory rate is 18 with an O2 saturation of 90% on room air. HEENT: PERRLA. EOMI. No icterus. NECK: Supple with a full range of motion. LUNGS: Clear. HEART: Regular rate and rhythm. No murmurs, rubs, or gallops. ABDOMEN: Benign. NEUROLOGIC: The patient is intact. LABORATORY VALUES: WBC of 8.4, hemoglobin and hematocrit of 13.2 and 40.4. Chemistry was normal with the exception of a random glucose of 181, phosphorous of 2.3, and magnesium 1.6. We will ambulate the patient and currently looking for rehab. CURRENT DIAGNOSES: 1. Intertrochanteric left hip fracture. 2. Chronic obstructive pulmonary disease. 3. Hypoxia. 4. Coronary artery disease. Freddy Alston MD
[2018-01-07 15:34] LABS: BASO # 0.01 K/mm3 (0.0-2.0); BASO % 0.1 % (0.0-3.0); EOS % 0.2 % (1.5-5.0); GRAN # 6.85 (1.4-6.5); GRAN % 72.8 % (50.0-68.0); HEMOGLOBIN 13.6 g/dL (12.0-16.0); LYMPH # 1.6 (1.2-3.4); LYMPH % 16.5 % (22.0-35.0); MEAN CELL VOLUME 90.7 fl (80.0-105.0); MEAN CORPUSCULAR HEMOGLOBIN 30.1 pg (25.0-35.0); MEAN CORPUSCULAR HGB CONC 33.2 g/dl (31.0-37.0); MEAN PLATELET VOLUME 10.5 fl (7.0-11.0); MONO % 10.4 % (1.0-6.0); RBC 4.52 10^6/uL (3.5-6.1); WHITE BLOOD COUNT 9.4 10^3/ul (4.5-11.0)
[2018-01-07] MEDS: Insulin Detemir 100 units/ml Vial (Levemir) SC SCH (17:39)
[2018-01-08] MEDS: Morphine 2 mg/ml ISec IVP PRN ×4 (00:23→15:08)
[2018-01-08] MEDS: Sodium Chloride 0.9% 1,000 ML IV SCH (05:14)
[2018-01-08 07:18] LABS: BASO # 0.01 K/mm3 (0.0-2.0); BASO % 0.1 % (0.0-3.0); EOS % 0.2 % (1.5-5.0); GRAN # 7.17 (1.4-6.5); GRAN % 75.1 % (50.0-68.0); HEMOGLOBIN 12.8 g/dL (12.0-16.0); LYMPH # 1.5 (1.2-3.4); LYMPH % 15.5 % (22.0-35.0); MEAN CELL VOLUME 87.6 fl (80.0-105.0); MEAN CORPUSCULAR HEMOGLOBIN 29.4 pg (25.0-35.0); MEAN CORPUSCULAR HGB CONC 33.6 g/dl (31.0-37.0); MEAN PLATELET VOLUME 10.5 fl (7.0-11.0); MONO # 0.9 (0.1-0.6); MONO % 9.1 % (1.0-6.0); RBC 4.35 10^6/uL (3.5-6.1); RED CELL DISTRIBUTION WIDTH 12.6 % (11.5-14.5); WHITE BLOOD COUNT 9.6 10^3/ul (4.5-11.0)
--- NOTE | 2018-01-08 07:25 | CP.PCM.PN ---
Subjective - Date & Time of Evaluation Date of Evaluation: 01/08/18 Time of Evaluation: 07:00 - Subjective Subjective: Seen and examined by me and Dr Benjamin Reason for consultation and follow up:Pre-op evaluation for left hip surgery, follow up post left hip surgery,post fall, history of coronary artery disease, post stent in 2008, COPD,Diabetes mellitus,hypertension, hyperlipidemia Denies chest pain or shortness of breath, complaints of left hip pain especially when moving Objective - Vital Signs/Intake and Output Vital Signs (last 24 hours): Temp Pulse Resp BP Pulse Ox 99.2 F 78 16 140/66 93 L 01/07/18 22:00 01/07/18 22:00 01/07/18 22:00 01/07/18 22:00 01/07/18 22:00 Intake and Output: 01/08/18 01/08/18 06:59 18:59 Intake Total 1420 Balance 1420 - Medications Medications: Current Medications Acetaminophen (Tylenol 325mg Tab) 650 mg PO Q4H PRN PRN Reason: Pain, moderate (4-7) Albuterol/Ipratropium (Duoneb 3 Mg/0.5 Mg (3 Ml) Ud) 3 ml IH Q4H PRN PRN Reason: Shortness of Breath Last Admin: 01/07/18 23:56 Dose: 3 ml Atenolol (Tenormin) 50 mg PO DAILY [facility] Last Admin: 01/07/18 09:45 Dose: 50 mg Docusate Sodium (Colace) 100 mg PO BID [facility] Last Admin: 01/07/18 17:37 Dose: 100 mg Enoxaparin Sodium (Lovenox) 30 mg SC DAILY [facility] PRN Reason: Protocol Last Admin: 01/07/18 10:02 Dose: 30 mg Glipizide (Glucotrol) 10 mg PO 1630 [facility] Last Admin: 01/07/18 16:00 Dose: 10 mg Sodium Chloride (Sodium Chloride 0.9%) 1,000 mls @ 100 mls/hr IV .Q10H [facility] Last Admin: 01/08/18 05:14 Dose: 100 mls/hr Insulin Detemir (Levemir) 15 unit SC QPM [facility] Last Admin: 01/07/18 17:39 Dose: 15 unit Insulin Human Regular (Humulin R Med) 0 units SC ACHS [facility] PRN Reason: Protocol Last Admin: 01/07/18 22:22 Dose: Not Given Ketorolac Tromethamine (Toradol) 60 mg IM Q8H PRN PRN Reason: Pain, severe (8-10) Stop: 01/12/18 11:03 Morphine Sulfate (Morphine) 2 mg IVP Q4H PRN PRN Reason: Pain, moderate (4-7) Last Admin: 01/08/18 05:26 Dose: 2 mg Sitagliptin Phosphate (Januvia) 100 mg PO DAILY [facility] Last Admin: 01/07/18 09:43 Dose: 100 mg - Labs Labs: 01/07/18 15:31 PT 11.6 SECONDS (9.4-12.5) 01/06/18 10:40 INR 1.01 (0.93-1.08) 01/06/18 10:40 APTT 27.4 Seconds (25.1-36.5) 01/06/18 10:40 - Constitutional Appears: Well, No Acute Distress - Head Exam Head Exam: NORMAL INSPECTION - Eye Exam Eye Exam: Normal appearance Pupil Exam: NORMAL ACCOMODATION - ENT Exam ENT Exam: Mucous Membranes Moist - Neck Exam Neck Exam: Normal Inspection - Respiratory Exam Respiratory Exam: Decreased Breath Sounds, NORMAL BREATHING PATTERN - Cardiovascular Exam Cardiovascular Exam: REGULAR RHYTHM, +S1, +S2 - GI/Abdominal Exam GI & Abdominal Exam: Soft, Normal Bowel Sounds - Extremities Exam Additional comments: left hip surgery,limited range of motion - Neurological Exam Neurological Exam: Alert, Awake, Oriented x3 - Psychiatric Exam Psychiatric exam: Normal Affect, Normal Mood - Skin Skin Exam: Dry, Intact Assessment and Plan - Assessment and Plan (Free Text) Assessment: Follow up post left hip surgery,post fall, history of coronary artery disease, post stent in 2008, COPD,Diabetes mellitus,hypertension, hyperlipidemia Plan: Left hip pain-on Morphine and Toradol PRN for pain, medicated Blood pressure stable, continue Tenormin Magnesium and Phosphorus low yesterday ordered replacement Repeat Mg and Phos level today pending results Physical therapy as directed by Surgery Will follow up
[2018-01-08] MEDS: Insulin Reg-MEDIUM-Coverage SC SCH ×4 (08:01→21:39)
[2018-01-08 08:03] LABS: ALB/GLOB RATIO 1.2 (1.1-1.8); ALBUMIN 3.4 g/dL (3.0-4.8); ALT/SGPT 66 U/L (7-56); AST/SGOT 53 U/L (14-36); BLOOD UREA NITROGEN 5 mg/dL (7-21); CALCIUM 9.3 mg/dL (8.4-10.5); GFR AFRICAN-AMERICAN > 60; GFR NON-AFRICAN AMERICAN > 60
[2018-01-08] MEDS ORDERED: Potassium Chloride 20 mEq ER Tab PO ONE (09:32)
[2018-01-08] MEDS: Enoxaparin 30 mg Syringe SC SCH (09:54)
--- NOTE | 2018-01-08 10:53 | RAD ---
PROCEDURE: Left Hip X-ray Radiographs. HISTORY: post op pain lt hip femer COMPARISON: Preoperative study 01/06/2018 FINDINGS: BONES: Satisfactory pinning of previously identified intertrochanteric fracture. Intramedullary soheila of partially fenestrated screw in satisfactory position. Major fracture fragments anatomically aligned. JOINTS: Normal. SOFT TISSUES: Normal. OTHER FINDINGS: None. IMPRESSION: Satisfactory postoperative status.
--- NOTE | 2018-01-08 10:54 | RAD ---
PROCEDURE: Left femur HISTORY: pain lt femer COMPARISON: January 08, 2018. TECHNIQUE: Standard protocol for this study/examination. FINDINGS: Satisfactory position alignment of orthopedic hardware traversing acute intertrochanteric fracture. No evidence of orthopedic hardware failure. Major fracture fragments anatomically aligned. IMPRESSION: Satisfactory postoperative status.
--- NOTE | 2018-01-08 11:19 | PN ---
SUBJECTIVE: The patient was seen and examined at bedside on the general medical ceballos. No acute events overnight. She remains afebrile and hemodynamically stable and is doing well postoperatively after repair of left hip fracture. She reports that her pain is adequately controlled with recurrent analgesic regimen and presently offers no complaints. OBJECTIVE: VITAL SIGNS: Temperature 98.8, pulse 81, blood pressure 172/75, respiratory rate 20, oxygen saturation 93% on room air. GENERAL: No apparent distress. HEENT: PERRL. EOMI. No scleral icterus. No conjunctival pallor. NECK: Supple with full range of motion. No JVD. No bruits. LUNGS: Clear to auscultation. CARDIOVASCULAR: Regular rate and rhythm. Normal S1 and S2. ABDOMEN: Normoactive bowel sounds. Soft, nontender, nondistended. EXTREMITIES: No edema. Surgical site appears clean, dry, and intact. NEUROLOGIC: Awake, alert, and oriented x3. No focal motor deficits. LABORATORY DATA: CBC reviewed and unremarkable. CMP reviewed and unremarkable with the exception of potassium of 3.3. ASSESSMENT: The patient is a 57 year old woman with a past medical history of hypertension, T2DM with neuropathy, CAD s/p PCI with stent placement and COPD who presented s/ p mechanical fall with a sustained left hip fracture who is now s/p ORIF POD #2. PLAN: 1. Acute fracture of the left hip s/p ORIF POD #2. Continue with post operative care as per Dr. Pratt of Orthopedic Surgery. Arrangements are being made for rehab. 2. Hypertension. Continue Atenolol 50 mg p.o. daily. 3. COPD. Continue supplemental oxygen and bronchodilators as needed. 4. Type 2 diabetes mellitus with diabetic neuropathy. Continue Glipizide 10 mg p.o. daily, Januvia 100 mg p.o. daily and we will increase Levemir to 20 units subcutaneous q.p.m. Continue with medium-dose ISS for coverage and monitoring fingersticks q.a.c. and q.h.s. 5. CAD s/p PCI with stent placement. Continue Atenolol 50 mg and resume ASA 81 mg p.o. daily. She declines statin due to history of myopathy. 6. Anxiety disorder. 7. Prophylaxis. GI prophylaxis is not indicated as patient is eating. Continue Lovenox 30 mg subcutaneous daily for DVT prophylaxis. CODE STATUS: Full code. Yasmany Alston MD MTDD
[2018-01-08] MEDS: Albuterol-Ipratrop 3 mg / 0.5 (3 ml) UD IH PRN ×2 (12:57→18:57)
--- NOTE | 2018-01-08 12:57 | PN ---
DATE: 01/08/2018 POSTOPERATIVE REPORT LOCATION: 562, bed 2. She underwent a left hip ORIF of the hip fracture, intertrochanteric, on 01/06/2018. She still has unexpected increase in pain in the left thigh and hip. So, I have to repeat the x-ray to make sure there is nothing abnormal; so, we will order an x-ray of the left hip and left femur today and hopefully, she could reduce the amount of narcotics she was taken, but have to make sure there is no malposition of the IM soheila and the fracture still in good position. So, we will get those x-rays and then proceed accordingly. Ra Pratt DO
[2018-01-08] MEDS: Insulin Detemir 100 units/ml Vial (Levemir) SC SCH (17:10)
[2018-01-08 17:57] LABS: BASO # 0.01 K/mm3 (0.0-2.0); BASO % 0.1 % (0.0-3.0); EOS % 0.1 % (1.5-5.0); GRAN # 8.01 (1.4-6.5); GRAN % 75.2 % (50.0-68.0); HEMOGLOBIN 13.3 g/dL (12.0-16.0); LYMPH # 1.7 (1.2-3.4); MEAN CELL VOLUME 87.9 fl (80.0-105.0); MEAN CORPUSCULAR HEMOGLOBIN 30.4 pg (25.0-35.0); MEAN CORPUSCULAR HGB CONC 34.5 g/dl (31.0-37.0); MEAN PLATELET VOLUME 10.5 fl (7.0-11.0); MONO # 0.9 (0.1-0.6); MONO % 8.6 % (1.0-6.0); RBC 4.38 10^6/uL (3.5-6.1); RED CELL DISTRIBUTION WIDTH 12.6 % (11.5-14.5); WHITE BLOOD COUNT 10.7 10^3/ul (4.5-11.0)
[2018-01-09] MEDS: Albuterol-Ipratrop 3 mg / 0.5 (3 ml) UD IH PRN ×2 (07:20→21:16)
[2018-01-09 07:32] LABS: BASO # 0.01 K/mm3 (0.0-2.0); BASO % 0.1 % (0.0-3.0); EOS % 0.3 % (1.5-5.0); GRAN # 7.75 (1.4-6.5); GRAN % 75.4 % (50.0-68.0); HEMOGLOBIN 13.1 g/dL (12.0-16.0); LYMPH # 1.5 (1.2-3.4); LYMPH % 14.6 % (22.0-35.0); MEAN CELL VOLUME 87.4 fl (80.0-105.0); MEAN CORPUSCULAR HEMOGLOBIN 29.5 pg (25.0-35.0); MEAN CORPUSCULAR HGB CONC 33.8 g/dl (31.0-37.0); MEAN PLATELET VOLUME 10.7 fl (7.0-11.0); MONO % 9.6 % (1.0-6.0); RBC 4.44 10^6/uL (3.5-6.1); RED CELL DISTRIBUTION WIDTH 12.6 % (11.5-14.5); WHITE BLOOD COUNT 10.3 10^3/ul (4.5-11.0)
[2018-01-09] MEDS: Insulin Reg-MEDIUM-Coverage SC SCH ×4 (07:40→22:25)
[2018-01-09 08:05] LABS: ALB/GLOB RATIO 1.2 (1.1-1.8); ALBUMIN 3.6 g/dL (3.0-4.8); ALT/SGPT 49 U/L (7-56); AST/SGOT 29 U/L (14-36); BLOOD UREA NITROGEN 11 mg/dL (7-21); CALCIUM 9.7 mg/dL (8.4-10.5); GFR AFRICAN-AMERICAN > 60; GFR NON-AFRICAN AMERICAN > 60
[2018-01-09] MEDS ORDERED: Potassium Chloride 20 mEq ER Tab PO ONE ×2 (08:45→13:00)
--- NOTE | 2018-01-09 09:47 | CP.PCM.PN ---
Subjective - Date & Time of Evaluation Date of Evaluation: 01/09/18 Time of Evaluation: 09:00 - Subjective Subjective: SUBJECTIVE: The patient was seen and examined at bedside on the general medical ceballos. No acute events overnight. She remains afebrile and hemodynamically stable and is doing well postoperatively. She complaints of constipation and has been ordered for laxatives and stool softeners. OBJECTIVE: VITAL SIGNS: Temperature 98, pulse 77, blood pressure 160/80, respiratory rate 20, oxygen saturation 97% on 2L NC. GENERAL: No apparent distress. HEENT: PERRL. EOMI. No scleral icterus. No conjunctival pallor. NECK: Supple with full range of motion. No JVD. No bruits. LUNGS: Clear to auscultation. CARDIOVASCULAR: Regular rate and rhythm. Normal S1 and S2. ABDOMEN: Normoactive bowel sounds. Soft, nontender, nondistended. EXTREMITIES: No edema. Surgical site appears clean, dry, and intact. NEUROLOGIC: Awake, alert, and oriented x3. No focal motor deficits. LABORATORY DATA: CBC reviewed and unremarkable. CMP reviewed and unremarkable with the exception of potassium of 3.2. ASSESSMENT: The patient is a 57 year old woman with a past medical history of hypertension, T2DM with neuropathy, CAD s/p PCI with stent placement and COPD who presented s/ p mechanical fall with a sustained left hip fracture who is now s/p ORIF POD #3. PLAN: 1. Acute fracture of the left hip s/p ORIF POD #3. Continue with post operative care as per Dr. Pratt of Orthopedic Surgery. Arrangements are being made for rehab. 2. Hypertension. Continue Atenolol 50 mg p.o. daily. 3. COPD. Continue supplemental oxygen and bronchodilators as needed. 4. Type 2 diabetes mellitus with diabetic neuropathy. Continue Glipizide 10 mg p.o. daily, Januvia 100 mg p.o. daily and Levemir to 20 units subcutaneous q.p.m. Continue with medium-dose ISS for coverage and monitoring fingersticks q.a.c. and q.h.s. 5. CAD s/p PCI with stent placement. Continue Atenolol 50 mg and resume ASA 81 mg p.o. daily. She declines statin due to history of myopathy. 6. Anxiety disorder. 7. Prophylaxis. GI prophylaxis is not indicated as patient is eating. Continue Lovenox 30 mg subcutaneous daily for DVT prophylaxis. CODE STATUS: Full code. Objective - Vital Signs/Intake and Output Vital Signs (last 24 hours): Temp Pulse Resp BP Pulse Ox 98 F 77 20 160/86 H 97 01/09/18 06:00 01/09/18 06:00 01/09/18 06:00 01/09/18 06:00 01/09/18 06:00 Intake and Output: 01/09/18 01/09/18 06:59 18:59 Intake Total Output Total Balance - Medications Medications: Current Medications Acetaminophen (Tylenol 325mg Tab) 650 mg PO Q4H PRN PRN Reason: Pain, moderate (4-7) Albuterol/Ipratropium (Duoneb 3 Mg/0.5 Mg (3 Ml) Ud) 3 ml IH Q4H PRN PRN Reason: Shortness of Breath Last Admin: 01/09/18 07:20 Dose: 3 ml Aspirin (Aspirin Chewable) 81 mg PO DAILY [facility] Last Admin: 01/08/18 09:56 Dose: 81 mg Atenolol (Tenormin) 50 mg PO DAILY [facility] Last Admin: 01/08/18 09:51 Dose: 50 mg Docusate Sodium (Colace) 100 mg PO BID [facility] Last Admin: 01/08/18 17:09 Dose: 100 mg Enoxaparin Sodium (Lovenox) 30 mg SC DAILY [facility] PRN Reason: Protocol Last Admin: 01/08/18 09:54 Dose: 30 mg Glipizide (Glucotrol) 10 mg PO 1630 [facility] Last Admin: 01/08/18 16:34 Dose: 10 mg Insulin Detemir (Levemir) 20 unit SC QPM [facility] Last Admin: 01/08/18 17:10 Dose: 20 unit Insulin Human Regular (Humulin R Med) 0 units SC ACHS [facility] PRN Reason: Protocol Last Admin: 01/08/18 21:39 Dose: Not Given Ketorolac Tromethamine (Toradol) 30 mg IM Q6 [facility] Stop: 01/14/18 09:12 Morphine Sulfate (Morphine) 2 mg IVP Q4H PRN PRN Reason: Pain, moderate (4-7) Last Admin: 01/08/18 15:08 Dose: 2 mg Polyethylene Glycol (Miralax) 17 gm PO BID [facility] Potassium Chloride (K-Dur 20 Meq Er Tab) 20 meq PO ONCE ONE Stop: 01/09/18 13:01 Sitagliptin Phosphate (Januvia) 100 mg PO DAILY [facility] Last Admin: 01/08/18 09:53 Dose: 100 mg - Labs Labs: 01/09/18 07:00 01/09/18 07:00 PT 11.6 SECONDS (9.4-12.5) 01/06/18 10:40 INR 1.01 (0.93-1.08) 01/06/18 10:40 APTT 27.4 Seconds (25.1-36.5) 01/06/18 10:40
[2018-01-09] MEDS: POLYETHYLENE GLYCOL 3350 17 GM/Dose PACKET PO SCH ×2 (09:49→17:26)
[2018-01-09] MEDS: Enoxaparin 30 mg Syringe SC SCH (09:51)
--- NOTE | 2018-01-09 12:08 | PN ---
DATE: LOCATION: Room 562, bed 2. REASON FOR CONSULTATION AND FOLLOWUP: Coronary artery disease, history of stent in 2008, COPD, diabetes, hypertension, hyperlipidemia, status post fall, status post hip surgery. SUBJECTIVE: The patient is lying flat. Denies any chest pain, shortness of breath or palpitation. Pain at ____ site of her hip is also getting less. PHYSICAL EXAMINATION VITAL SIGNS: Blood pressure 139/79, respirations 21, pulse 78, temperature 98.2. HEENT: Head is normocephalic. Eyes: Pupils are normal. Conjunctivae normal. Nose and throat are normal. NECK: JVP low. Carotids are equal. THORAX: AP diameter normal. LUNGS: Clear. CARDIOVASCULAR: S1, S2. ABDOMEN: Soft, nontender. No organomegaly. Bowel sounds are normal. EXTREMITIES: No clubbing. No cyanosis. LABORATORY DATA: WBC 10.3, hemoglobin 13.1, hematocrit 38.8 and platelets 195,000. Sodium 140, potassium 3.2, BUN 11, creatinine 0.4, random sugar 121. AST, ALT, total protein and albumin normal. PT/INR and PTT were done on 01/06/2018 and it was normal. DIAGNOSES: Status post left hip fracture due to fall - status post surgery, coronary artery disease with stent insertion, hypertension, diabetes, and hyperlipidemia. PLAN: We will give potassium therapy. We will repeat labs in the morning. In the meantime, we will continue physical therapy and aspirin 81 mg daily, DuoNeb hand nebulizer therapy, glipizide 10 mg p.o. daily, Januvia 100 mg daily, insulin 20 units subcutaneously q.p.m., Lovenox 30 mg subcutaneously daily, and atenolol 50 mg daily. We will follow. Katerine Benjamin MD
--- NOTE | 2018-01-09 14:22 | PN ---
DATE: 01/09/2018 ORTHOPEDIC FOLLOWUP REPORT A 57-year-old female seen on 01/09/2018. She is presently three days postop of her fracture of left hip and she is doing well. The wound is dry, she feels much better today and she said she will be looking forward to getting up out of bed and ambulate with a walker, weightbearing to tolerance of the left hip, then plan is to go to subacute rehab when we get her a place to go. She has got the SCDs on and she is on DVT prophylaxis and she is looking forward to getting up out of bed with therapy to ambulate. Ra Pratt DO
[2018-01-09] MEDS: Insulin Detemir 100 units/ml Vial (Levemir) SC SCH (17:26)
[2018-01-10 06:44] LABS: BASO # 0.01 K/mm3 (0.0-2.0); BASO % 0.1 % (0.0-3.0); EOS % 0.3 % (1.5-5.0); GRAN # 8.15 (1.4-6.5); GRAN % 73.5 % (50.0-68.0); HEMOGLOBIN 13.3 g/dL (12.0-16.0); LYMPH # 1.9 (1.2-3.4); LYMPH % 17.2 % (22.0-35.0); MEAN CELL VOLUME 87.8 fl (80.0-105.0); MEAN CORPUSCULAR HEMOGLOBIN 30.1 pg (25.0-35.0); MEAN CORPUSCULAR HGB CONC 34.3 g/dl (31.0-37.0); MEAN PLATELET VOLUME 10.2 fl (7.0-11.0); MONO % 8.9 % (1.0-6.0); RBC 4.42 10^6/uL (3.5-6.1); RED CELL DISTRIBUTION WIDTH 12.8 % (11.5-14.5); WHITE BLOOD COUNT 11.1 10^3/ul (4.5-11.0)
--- NOTE | 2018-01-10 06:59 | CP.PCM.PN ---
Subjective - Date & Time of Evaluation Date of Evaluation: 01/10/18 Time of Evaluation: 06:10 - Subjective Subjective: Seen and examined by me and Dr. Benjamin Reason for consult and follow up: left hip surgery post fall, status post left hip surgery, history of coronary artery disease post PTCA stent, in 2008., COPD, Diabetes, hypertension,hyperlipidemia Subjective: Lying in bed, sleeping but easily awaken, denies chest pain or shortness of breath Objective - Vital Signs/Intake and Output Vital Signs (last 24 hours): Temp Pulse Resp BP Pulse Ox 97.8 F 75 18 170/86 H 99 01/09/18 22:00 01/10/18 05:46 01/09/18 22:00 01/10/18 05:46 01/09/18 22:00 Intake and Output: 01/09/18 01/10/18 18:59 06:59 Intake Total 660 Output Total 250 Balance 410 - Medications Medications: Current Medications Acetaminophen (Tylenol 325mg Tab) 650 mg PO Q4H PRN PRN Reason: Pain, moderate (4-7) Albuterol/Ipratropium (Duoneb 3 Mg/0.5 Mg (3 Ml) Ud) 3 ml IH Q4H PRN PRN Reason: Shortness of Breath Last Admin: 01/09/18 21:16 Dose: 3 ml Aspirin (Aspirin Chewable) 81 mg PO DAILY [facility] Last Admin: 01/09/18 09:50 Dose: 81 mg Atenolol (Tenormin) 50 mg PO DAILY [facility] Last Admin: 01/10/18 05:46 Dose: 50 mg Docusate Sodium (Colace) 100 mg PO BID [facility] Last Admin: 01/09/18 17:27 Dose: Not Given Enoxaparin Sodium (Lovenox) 30 mg SC DAILY [facility] PRN Reason: Protocol Last Admin: 01/09/18 09:51 Dose: 30 mg Glipizide (Glucotrol) 10 mg PO 1630 [facility] Last Admin: 01/09/18 16:17 Dose: 10 mg Insulin Detemir (Levemir) 20 unit SC QPM [facility] Last Admin: 01/09/18 17:26 Dose: 20 unit Insulin Human Regular (Humulin R Med) 0 units SC ACHS [facility] PRN Reason: Protocol Last Admin: 01/09/18 22:25 Dose: Not Given Ketorolac Tromethamine (Toradol) 30 mg IM Q6 PRN PRN Reason: PAIN, SEVERE [7-10] Last Admin: 01/10/18 04:19 Dose: 30 mg Morphine Sulfate (Morphine) 2 mg IVP Q4H PRN PRN Reason: Pain, moderate (4-7) Last Admin: 01/08/18 15:08 Dose: 2 mg Polyethylene Glycol (Miralax) 17 gm PO BID [facility] Last Admin: 01/09/18 17:26 Dose: Not Given Sitagliptin Phosphate (Januvia) 100 mg PO DAILY [facility] Last Admin: 01/09/18 09:50 Dose: 100 mg - Labs Labs: 01/09/18 07:00 01/09/18 07:00 PT 11.6 SECONDS (9.4-12.5) 01/06/18 10:40 INR 1.01 (0.93-1.08) 01/06/18 10:40 APTT 27.4 Seconds (25.1-36.5) 01/06/18 10:40 - Constitutional Appears: Well, No Acute Distress - Head Exam Head Exam: NORMAL INSPECTION - Eye Exam Eye Exam: Normal appearance Pupil Exam: NORMAL ACCOMODATION - ENT Exam ENT Exam: Mucous Membranes Moist - Neck Exam Neck Exam: Normal Inspection - Respiratory Exam Respiratory Exam: Clear to Ausculation Bilateral, NORMAL BREATHING PATTERN - Cardiovascular Exam Cardiovascular Exam: REGULAR RHYTHM, +S1, +S2 - GI/Abdominal Exam GI & Abdominal Exam: Soft, Normal Bowel Sounds - Extremities Exam Extremities Exam: Normal Capillary Refill Additional comments: Limited due to hip surgery - Neurological Exam Neurological Exam: Alert, Awake, Oriented x3 - Psychiatric Exam Psychiatric exam: Normal Affect, Normal Mood - Skin Skin Exam: Dry, Intact, Normal Color, Warm Assessment and Plan - Assessment and Plan (Free Text) Assessment: Impression: left hip surgery post fall, status post left hip surgery, history of coronary artery disease post PTCA stent, in 2008., COPD, Diabetes, hypertension,hyperlipidemia Plan: Lab results pending today, Potassium level low yesterday, replenished with KCl, awaiting level today will folow up. Stable vital signs. Will keep medications as ordered Continue Aspirin 81 mg daily,Atenolol 50 mg daily,Lovenox 30 mg SC daily, Glucotrol 10 mg daily,Insulin as ordered,Januvia 100mg daily. Minimal pain right now.Continue Toradol 30 mg every 6 hours and Morphine 2mg IV every 4 hours PRN for moderate to severe for pain Physical theraphy as ordered. Will follow up Plan and treatment discussed with Dr. Benjamin
[2018-01-10 07:27] VITALS: RESP 20; TEMP 98.1; O2SAT 94
[2018-01-10] MEDS: Insulin Reg-MEDIUM-Coverage SC SCH ×2 (07:57→11:58)
[2018-01-10 08:12] LABS: GFR AFRICAN-AMERICAN > 60; GFR NON-AFRICAN AMERICAN > 60
[2018-01-10 08:27] LABS: ALB/GLOB RATIO 1.2 (1.1-1.8); ALBUMIN 3.6 g/dL (3.0-4.8); ALT/SGPT 40 U/L (7-56); AST/SGOT 26 U/L (14-36); BLOOD UREA NITROGEN 14 mg/dL (7-21); CALCIUM 9.9 mg/dL (8.4-10.5)
[2018-01-10] MEDS: Enoxaparin 30 mg Syringe SC SCH (10:00)
[2018-01-10] MEDS: POLYETHYLENE GLYCOL 3350 17 GM/Dose PACKET PO SCH (10:00)
[2018-01-10 10:01] VITALS: PULSE 75
--- NOTE | 2018-01-10 10:14 | PN ---
SUBJECTIVE: The patient was seen and examined at bedside on the general medical ceballos. No acute events overnight. She remains afebrile and hemodynamically stable. At this point the patient reports that she had a bowel movement and reports resolution of her abdominal discomfort. Otherwise she remains clinically stable and is pending transfer to rehab facility. OBJECTIVE VITAL SIGNS: Temperature 98.1, pulse 68, blood pressure 154/67, respiratory rate 20, oxygen saturation 96% on room air. GENERAL: No apparent distress. HEENT: PERRL. EOMI. No scleral icterus. No conjunctival pallor. NECK: Supple with full range of motion. No JVD. No bruits. LUNGS: Clear to auscultation. CARDIOVASCULAR: Regular rate and rhythm. Normal S1 and S2. ABDOMEN: Normoactive bowel sounds. Soft, nontender, nondistended. EXTREMITIES: No edema. NEUROLOGIC: Awake, alert and oriented x3. No focal motor deficits. LABORATORY DATA: CBC reviewed and unremarkable. CMP reviewed and unremarkable. ASSESSMENT: The patient is a 57 year old woman with a past medical history of hypertension type 2 diabetes mellitus with diabetic neuropathy, CAD s/p PCI with stent placement and COPD who presented s/p mechanical fall with a sustained left hip fracture who is now s/p ORIF POD #4. PLAN 1. Acute fracture of the left hip s/p ORIF POD #4. Continue with postoperative care as per Dr. Pratt of Orthopedic Surgery. Arrangements are being made for placement to rehab. Continue with bowel regimen while the patient is on analgesics. 2. Hypertension. Continue Atenolol 50 mg p.o. daily. 3. COPD. Continue supplemental oxygen and bronchodilators as needed. 4. Type 2 diabetes mellitus with diabetic neuropathy. Fingersticks improved. Continue Glipizide 10 mg p.o. daily, Januvia 100 mg p.o. daily and Levemir 20 units subcutaneous q.p.m. Continue medium-dose ISS and monitoring fingersticks before meals, at bedtime. 5. CAD s/p PCI with stent placement. Continue Atenolol 50 mg p.o. daily and Aspirin 81 mg p.o. daily. The patient declined statin due to the history of myopathy. 6. Anxiety disorder. 7. Prophylaxis. GI prophylaxis is not indicated as patient is eating. Continue Lovenox for DVT prophylaxis. 8. Disposition. The patient is pending transfer to rehab and is medically cleared for discharge. CODE STATUS: Full code. Yasmany Alston MD [facility]
[2018-01-10 16:34] VITALS: BP 147/68
--- NOTE | 2018-01-12 06:02 | DS ---
ADMITTING DIAGNOSIS: Left hip fracture status post mechanical fall. DISCHARGE DIAGNOSIS: Left hip fracture status post open reduction and internal fixation. SECONDARY DIAGNOSES: Chronic obstructive pulmonary disease, type 2 diabetes mellitus with diabetic neuropathy, hypertension, coronary artery disease status post percutaneous coronary intervention with stent placement; and anxiety disorder. CONSULTATIONS: Dr. Pratt (Orthopedic Surgery), Dr. Benjamin (Cardiology). IMAGING STUDIES: 1. Chest x-ray demonstrated no active pulmonary disease. 2. X-ray of left hip, which demonstrated acute impacted left intertrochanteric fracture. PROCEDURES: Open reduction and internal fixation of left hip fracture. HISTORY OF PRESENT ILLNESS: The patient is a 57-year-old woman with a past medical history of CAD status post PCI with stent placement; COPD, hypertension, type 2 diabetes mellitus, and GERD, who presented to [facility] ED for evaluation of acute onset of left hip pain status post mechanical fall. The patient reports that she was in her usual state of health until the day of presentation to the ED when she tripped and sustained a fall to her left side. She had immediate onset of severe pain and called EMS, who brought her to the ED. Examination in the ED disclosed severe tenderness to palpation and decreased range of motion to the left hip and x-ray, which demonstrated an acute impacted left intertrochanteric fracture. She was promptly evaluated by Dr. Pratt of Orthopedic Surgery and was taken to the OR for orthopedic repair. HOSPITAL COURSE: The patient underwent successful ORIF of her acute left hip fracture with Dr. Pratt. Her postoperative course was uncomplicated, and she was evaluated by Physical Therapy which recommend acute rehab. Due to her insurance, she needed three overnight stays in the hospital. During her hospital stay, her blood pressure was noted to be slightly elevated, and her atenolol was increased from 50 mg p.o. daily to 100 mg p.o. daily with subsequent improvement in her blood pressure readings. She was also noted to have elevated fingersticks on her blood glucose monitoring, and her Levemir was increased to Levemir 25 units subcutaneous q.p.m. with subsequent satisfactory fingerstick readings. Overall, her hospital stay remained unremarkable; and by hospital day #3, she was deemed stable for discharge to rehab. CONDITION: Fair, improved. DISPOSITION[facility] in [place], [place]. DISCHARGE MEDICATIONS: Januvia 100 mg p.o. daily, glipizide 10 mg p.o. daily, Levemir 25 units subcutaneous q.p.m., atenolol 100 mg p.o. daily, aspirin 81 mg p.o. daily, Singulair 10 mg p.o. daily, and Lyrica 200 mg p.o. b.i.d. DISCHARGE INSTRUCTIONS: The patient was advised that if she develops any lower extremity edema, chest pain, palpitations, hemoptysis, or dyspnea to notify the physicians at her rehab facility immediately. FOLLOWUP: The patient to follow up with her PMD within one week of discharge from rehab. The patient to follow up with Dr. Pratt as scheduled. Yasmany Alston MD [facility] # [id number]
== END 2018-01-10 18:03 | DRG 482 ==
LOC: ED 09:45 → ERH 12:43 → 5RNO 18:55 → OBSVTOIN 01-07 13:21
PROVIDERS: ADMIT Student in an Organized Health Care Education/Training Program; ATTEND Student in an Organized Health Care Education/Training Program
PROC: 0QS706Z Reposition Left Upper Femur with Intramedullary Internal Fixation Device, Open Approach (ICD-10-PCS; principal; 2018-01-06 15:30)
PROC: 3E0F7GC Introduction of Other Therapeutic Substance into Respiratory Tract, Via Natural or Artificial Opening (ICD-10-PCS; 2018-01-07)
DX: S72.142A Displaced intertrochanteric fracture of left femur, initial encounter for closed fracture (principal); E11.40 Type 2 diabetes mellitus with diabetic neuropathy, unspecified; I25.10 Atherosclerotic heart disease of native coronary artery without angina pectoris; J44.9 Chronic obstructive pulmonary disease, unspecified; I10 Essential (primary) hypertension; F41.9 Anxiety disorder, unspecified; E11.65 Type 2 diabetes mellitus with hyperglycemia; K59.00 Constipation, unspecified; E78.5 Hyperlipidemia, unspecified; F17.210 Nicotine dependence, cigarettes, uncomplicated; W01.0XXA Fall on same level from slipping, tripping and stumbling without subsequent striking against object, initial encounter; Y92.480 Sidewalk as the place of occurrence of the external cause; Z95.5 Presence of coronary angioplasty implant and graft; Z90.49 Acquired absence of other specified parts of digestive tract

== ENCOUNTER 2018-02-27 16:26 | Inpatient (IN) | payer MEDICARE, MEDICAID ==
--- NOTE | 2018-02-27 16:46 | ED PDOC ---
Arrival/HPI - General Chief Complaint: Dizziness/Lightheaded Time Seen by Provider: 02/27/18 16:38 Historian: Patient - History of Present Illness Narrative History of Present Illness (Text): 02/27/18 16:41 57 year old female, pmh including htn/copd/dm/cad/pud/diverticulitis, last tetanus doesn't remember, allergic to macrolides, biba complaining of headache and neck pain x 1 hour. Pt. stated that she recently had a left hip fracture with ORIF, was sitting down and got up to use the walker about 1 hour ago, walked approx. 4 feet and which instantly syncopized on the floor and doesn't remember what happen, no urinary or bowel incontinence or retention, no urinary symptoms, no chest pain or shortness of breath, no night sweat, no rash, no other medical or psychological complaints. Past Medical History - Provider Review Nursing Documentation Reviewed: Yes - Infectious Disease Hx of Infectious Diseases: None - Tetanus Immunization Tetanus Immunization: Unknown - Cardiac Hx Angina: (chest pain) Hx Hypertension: Yes - Pulmonary Hx Asthma: Yes Hx Chronic Obstructive Pulmonary Disease (COPD): Yes - Neurological Hx Paralysis: No - HEENT Hx HEENT Disorder: No - Renal Hx Renal Disorder: No - Endocrine/Metabolic Hx Endocrine Disorders: Yes Hx Diabetes Mellitus Type 2: Yes (iddm) - Hematological/Oncological Hx Blood Transfusions: No Hx Blood Transfusion Reaction: No - Integumentary Hx Dermatological Disorder: No - Musculoskeletal/Rheumatological Hx Musculoskeletal Disorders: Yes (LUMBAR STENOSIS,C SPINE SX) - Gastrointestinal Hx Gastrointestinal Disorders: Yes Hx Diverticulitis: Yes Other/Comment: COLON POLYPS, - Genitourinary/Gynecological Hx Genitourinary Disorders: No - Psychiatric Hx Emotional Abuse: No Hx Physical Abuse: No Hx Substance Use: No - Surgical History Hx Coronary Stent: Yes (x2 2009) Hx Orthopedic Surgery: Yes (Left hip Fx) - Anesthesia Hx Anesthesia: Yes Hx Anesthesia Reactions: No Hx Malignant Hyperthermia: No - Suicidal Assessment Feels Threatened In Home Enviroment: No Family/Social History - Physician Review Nursing Documentation Reviewed: Yes Family/Social History: Unknown Family HX Smoking Status: Light Smoker < 10 Cigarettes Daily Hx Alcohol Use: No Hx Substance Use: No Hx Substance Use Treatment: No Allergies/Home Meds Allergies/Adverse Reactions: Allergies MYCINS Allergy (Mild, Uncoded 02/27/18 16:34) ANAPHYLAXIS Home Medications: Home Meds Medication Instructions Recorded Confirmed busPIRone [Buspar] 10 mg PO BID 11/15/15 02/27/18 Aspirin [Ecotrin] 81 mg PO DAILY 02/28/16 02/27/18 Atenolol [Tenormin] 50 mg PO QAM 02/28/16 02/27/18 Pregabalin [Lyrica] 200 mg PO BID 02/28/16 02/27/18 Levocetirizine Dihydrochloride 5 mg PO DAILY 09/16/16 02/27/18 [Xyzal] GlipiZIDE [Glipizide] 10 mg PO DAILY 10/08/16 02/27/18 Montelukast [Singulair] 10 mg PO DAILY 10/08/16 02/27/18 Review of Systems - Review of Systems Constitutional: absent: Fatigue Eyes: absent: Vision Changes ENT: absent: Hearing Changes Respiratory: absent: SOB, Cough Cardiovascular: absent: Chest Pain Gastrointestinal: absent: Abdominal Pain, Nausea, Vomiting Musculoskeletal: Arthralgias, Neck Pain. absent: Back Pain, Joint Swelling, Myalgias Skin: Laceration. absent: Rash, Pruritis Neurological: Headache. absent: Dizziness, Focal Weakness, Gait Changes, Speech Changes, Facial Droop Psychiatric: absent: Anxiety, Depression, Suicidal Ideation Physical Exam Vital Signs Temp Pulse Resp BP Pulse Ox 02/27/18 18:41 72 18 114/85 99 02/27/18 17:42 74 110/65 02/27/18 17:17 84/51 L 02/27/18 16:27 97.8 F 72 18 61/38 L 99 - Systems Exam Head: Present: Atraumatic, Normocephalic, Laceration (Rt. eyebrow region there is tenderness with approx. 2cm superficial laceration noted with no streaking or ulcers. ) Pupils: Present: PERRL Extroacular Muscles: Present: EOMI Conjunctiva: Present: Normal Ears: Present: NORMAL TM, Normal Canal. No: Erythema Mouth: Present: Moist Mucous Membranes Nose (External): Present: Atraumatic. No: Abrasion, Contusion, Laceration Nose (Internal): Present: Normal Inspection, No Active Bleeding. No: Rhinorrhea , Septal Hematoma, Epistaxis Neck: Present: Normal Range of Motion, MIDLINE TENDERNESS (+ttp on the rt. mid cervical spine region), Trachea Midline. No: Paraspinal Tenderness, Lymphadenopathy Respiratory/Chest: Present: Clear to Auscultation, Good Air Exchange. No: Respiratory Distress, Accessory Muscle Use Cardiovascular: Present: Regular Rate and Rhythm, Normal S1, S2. No: Murmurs Abdomen: No: Tenderness, Distention, Peritoneal Signs, Rebound, Guarding Back: Present: Normal Inspection Upper Extremity: Present: Normal Inspection, Normal ROM, NORMAL PULSES, Neurovascularly Intact, Capillary Refill < 2s. No: Cyanosis, Edema, Deformity Lower Extremity: Present: Normal Inspection, NORMAL PULSES, Normal ROM, Capillary Refill < 2 s, Other (Lt. hip: +ttp on the lt. hip region with no swelling or deformity, no ecchymosis, FROM with pain, sensation intact, motor 5/ 5, +DPPT pulses, capillary refill< 2 seconds, neurovascular intact. ). No: Edema, Deformity Neurological: Present: GCS=15, CN II-XII Intact, Speech Normal, Motor Func Grossly Intact, Memory Normal, Other (no drift, no focal neurological deficits. ) Skin: Present: Warm, Dry, Normal Color. No: Rashes Psychiatric: Present: Alert, Oriented x 3, Normal Insight, Normal Concentration Medical Decision Making ED Course and Treatment: 02/27/18 16:55 -Labs/cardiac enzyme/ua -EKG -CXR -Lt. hip xray -CT head/maxillofacial/cervical -IVF -Cervical collar -Orthostatic unable to perform as the patient is too fatigue to get up. -Case discussed with Dr. Gordy Hoyos and he agreed on the orders -Observe and reassess 02/27/18 17:15 -Hypotensive 61/32 noted with HR 75, AOX3, 1500cc IV bolus ordered and place the patient in [place] position. 02/27/18 17:45 -Pt. received 1500cc fluid bolus and BP is currently 118/52, maintained fluid @ 75cc/hr 02/27/18 18:04 -Sensation intact, motor 5/5, wound irrigated with normal saline 1000cc, clean with betadine, 1% lidocaine approx. 1cc injected locally, 6-0 nylon made 3 sutures with hemostasis obtained, bacitracin and gauze dressing, sensation intact, motor 5/5, total procedure time 15 minutes, no complication. 02/27/18 19:49 -BP 61/38 and now 108/51 on the bed side after 1500ml IV bolus. Orthostatic v/s obtained lying flat 107/62 and standing 72/55, continuous fluid ordered with aspirin, will need admission and agreed by Dr. Hoyos. -EKG: NSR @ 75 BPM, no ST elevation or depression, no T wave inversion, compared with previous ekg. -CT Head no evidence of acute intracranial injury or fractures. Incidental 2.7 cm calcified right parietal mass, most likely a meningioma. -CT Facial No acute facial bone fractures identified. -CT Cervical No acute cervical spine fractures identified. - Post operative changes. Evidence of prior fusion from C4 to C6. -Chest xray -Lt. hip xray show no acute fracture or dislocation. -Labs show no acute findings except BNP 511 with no cardiopulmonary complaints and Mg 1.6 (mag 1gm IV ordered). -1st set of troponin is negative -Cervical collar removed. -Urinalysis is pending. -Paging Dr. Kory Alston for admission for telemetry and observation over night. 02/27/18 19:54 -I spoke to Dr. Kory Alston about the case/labs/radiology results, BP still positive for orthostatic which she received 2000cc now, and still orthostatic hypotension, agreed to admit his service over night for observation under his service. -I discussed all the labs/radiology result including the CT head with the 2.7cm calcified rt. parietal mass with the patient which she will need follow up. -I discussed the case with Dr. Hoyos including labs/radiology result, he will put in the admission order. -Pt. completed the swallow evaluation. -Pt. has headache and neck pain, IV morphine 4mg IV ordered. - Lab Interpretations Lab Results: 02/27/18 16:50 02/27/18 16:50 Lab Results 02/27/18 16:50: WBC 8.4 D, RBC 5.30, Hgb 16.2 H D, Hct 46.8, MCV 88.3, MCH 30.6 , MCHC 34.6, RDW 13.4, Plt Count 334, MPV 9.7, Gran % 44.4 L, Lymph % (Auto) 40.6 H, [place] % (Auto) 10.0 H, Eos % (Auto) 4.4, Baso % (Auto) 0.6, Gran # 3.72, Lymph # (Auto) 3.4, [place] # (Auto) 0.8 H, Eos # (Auto) 0.4, Baso # (Auto) 0.05 02/27/18 16:50: Sodium 138, Potassium 3.6, Chloride 103, Carbon Dioxide 22, Anion Gap 17, BUN 8, Creatinine 0.9, Est GFR ( Amer) > 60, Est GFR (Non- Af Amer) > 60, Random Glucose 177 H, Calcium 9.7, Magnesium 1.6 L, Total Bilirubin 0.8, AST 18, ALT 26, Alkaline Phosphatase 88, Lactate Dehydrogenase 427, Total Creatine Kinase 32 L, Troponin I < 0.01, NT-Pro-B Natriuret Pep 511 H , Total Protein 7.1, Albumin 4.3, Globulin 2.7, Albumin/Globulin Ratio 1.6 02/27/18 16:50: PT 12.4, INR 1.09 H, APTT 25.9 02/27/18 16:40: POC Glucose (mg/dL) 173 H I have reviewed the lab results: Yes - RAD Interpretation Radiology Orders: 02/27/18 16:48 CERVICAL SPINE W/O CONTRAST [CT] Stat HEAD W/O CONTRAST [CT] Stat HIP MIN 2V W/ PELVIS LT [RAD] Stat 02/27/18 16:51 MAXILLOFACIAL W/O CONTRAST [CT] Stat 02/27/18 19:16 CHEST PORTABLE [RAD] Stat CT Head: BRAIN: 2 x 1.2 x 0.8 cm ovoid, well-defined, smoothly- marginated, calcified mass in the right parietal region, most likely a calcified meningioma. No significant acute abnormality identified. No acute hemorrhage seen within the brain. No acute extra-axial fluid collections visualized. No evidence of significant mass effect within the brain. VENTRICLES: No evidence of significant hydrocephalus. BONES/JOINTS: No acute fractures or other acute bony abnormality noted. SOFT TISSUES: No acute abnormality of the visualized soft tissues is seen. SINUSES: No evidence of sinus fluid levels. MASTOID AIR CELLS: Mastoid air cells appear clear. IMPRESSION: - No evidence of acute intracranial injury or fractures. - Incidental 2.7 cm calcified right parietal mass, most likely a meningioma. - See above for remaining findings. Thank you for allowing us to participate in the care of your patient. Dictated and Authenticated by: Jocelynn Gallardo MD 02/27/2018 7:13 PM Eastern Time ( [facility]) CT Cervical: LIMITATIONS: Streak artifact from metallic hardware in the cervical spine. VERTEBRAE: Metallic anterior plate and screw device extending from C4 to C6. This appears intact. No acute cervical spine fractures visualized. No significant vertebral subluxation seen on the sagittal reformatted images. No evidence of acute facet dislocation. DISCS/SPINAL CANAL/NEURAL FORAMINA: Marked degenerative disc disease at C4-5 and C5-6. There are posterior osteophytes at these levels, which do appear to be causing spinal canal stenosis. SOFT TISSUES: No acute abnormality of the visualized soft tissues is seen. LUNG APICES: Mild to moderate diffuse centrilobular emphysematous changes in the lung apices bilaterally. IMPRESSION: - No acute cervical spine fractures identified. - Post operative changes. Evidence of prior fusion from C4 to C6. - See above for remaining findings. Thank you for allowing us to participate in the care of your patient. Dictated and Authenticated by: Jocelynn Gallardo MD 02/27/2018 7:32 PM Eastern Time ( [facility]) CT Maxillofacial: BONES/JOINTS: No acute fractures seen. No evidence of acute dislocation. SOFT TISSUES: Right periorbital soft tissue swelling. ORBITS: Intraorbital soft tissues appear grossly intact. No evidence of significant orbital emphysema. SINUSES: Minimal sinus inflammatory disease. There is minimal to mild mucosal thickening in the frontal and anterior ethmoid sinuses bilaterally. No evidence of sinus fluid levels. IMPRESSION: - No acute facial bone fractures identified. - See above for remaining findings. Dictated and Authenticated by: Jocelynn Gallardo MD 02/27/2018 7:20 PM Eastern Time ([place] & [place]) Lt. hip and pelvis xray: Take Down Inspector: Radiologist - EKG Interpretation EKG Interpretation (Text): 02/27/18 17:16 -EKG: NSR @ 75 BPM, no ST elevation or depression, no T wave inversion, compared with previous ekg. Interpreted by ED Physician: Yes Type: 12 lead EKG Comparison: Com.w/previous EKG - Medication Orders Current Medication Orders: Sodium Chloride (Sodium Chloride 0.9%) 1,000 mls @ 75 mls/hr IV .[id number] [facility] Last Admin: 02/27/18 18:38 Dose: 75 mls/hr eMAR Start Stop Document 02/27/18 18:38 [facility] (Rec: 02/27/18 18:38 [facility] [id number]) Intravenous Solution Start Date 02/27/18 Start Time 18:38 Sodium Chloride (Sodium Chloride 0.9%) 1,000 mls @ 999 mls/hr IV .Q1H1M STA Stop: 02/27/18 20:46 Magnesium Sulfate/Dextrose (Magnesium Sulfate 1 Gm/100 Ml D5w) 1 gm in 100 mls @ 100 mls/hr IVPB ONCE ONE Stop: 02/27/18 20:47 Discontinued Medications Aspirin (Aspirin) 325 mg PO STAT STA Stop: 02/27/18 19:47 Sodium Chloride (Sodium Chloride 0.9%) 500 mls @ 999 mls/hr IV .Q31M STA Stop: 02/27/18 17:18 Last Admin: 02/27/18 16:56 Dose: 999 mls/hr eMAR Start Stop Document 02/27/18 16:56 [facility] (Rec: 02/27/18 16:57 [facility] [id number]) Intravenous Solution Start Date 02/27/18 Start Time 16:56 End Date 02/27/18 End time 17:56 Total Infusion Time 60 Tetanus/Reduced Diphtheria/Acell Pertussis (Boostrix Vaccine Inj) 0.5 ml IM .ONCE ONE Stop: 02/27/18 16:51 Last Admin: 02/27/18 16:55 Dose: 0.5 ml Immunization Registry Document 02/27/18 16:55 [facility] (Rec: 02/27/18 16:56 [facility] [id number]) Immunization Registry Consent Date 02/21/18 - 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 Disposition/Present on Arrival - Present on Arrival Any Indicators Present on Arrival: No History of DVT/PE: No History of Uncontrolled Diabetes: Yes Urinary Catheter: No History of Decub. Ulcer: No History Surgical Site Infection Following: None - Disposition Have Diagnosis and Disposition been Completed?: Yes Diagnosis: Syncope and collapse, Facial laceration, Hypotension, Orthostatic hypotension, Abnormal CT scan, head Disposition: HOSPITALIZED Disposition Time: 17:15 Patient Plan: Admission, Telemetry Patient Problems: Current Active Problems Problem Status Onset Syncope and collapse Acute Facial laceration Acute Hypotension Acute Orthostatic hypotension Acute Abnormal CT scan, head Acute Condition: STABLE Discharge Instructions (ExitCare): Syncope (ED) Referrals: [facility] Renée Day, [Non-Staff] - Follow up with primary Forms: [employer] (E[place]ian)
[2018-02-27] MEDS ORDERED: Sodium Chloride 0.9% 500 ML IV STA (16:48)
[2018-02-27] MEDS ORDERED: TDAP Vaccine 0.5 mL Syr IM ONE (16:50)
[2018-02-27] MEDS ORDERED: Sodium Chloride 0.9% 1,000 ML IV STA ×2 (17:01→19:46)
[2018-02-27 17:07] LABS: BASO # 0.05 K/mm3 (0.0-2.0); BASO % 0.6 % (0.0-3.0); EOS # 0.4 (0.0-0.7); EOS % 4.4 % (1.5-5.0); GRAN # 3.72 (1.4-6.5); GRAN % 44.4 % (50.0-68.0); HEMOGLOBIN 16.2 g/dL (12.0-16.0); LYMPH # 3.4 (1.2-3.4); LYMPH % 40.6 % (22.0-35.0); MEAN CELL VOLUME 88.3 fl (80.0-105.0); MEAN CORPUSCULAR HEMOGLOBIN 30.6 pg (25.0-35.0); MEAN CORPUSCULAR HGB CONC 34.6 g/dl (31.0-37.0); MEAN PLATELET VOLUME 9.7 fl (7.0-11.0); MONO # 0.8 (0.1-0.6); RBC 5.3 10^6/uL (3.5-6.1); RED CELL DISTRIBUTION WIDTH 13.4 % (11.5-14.5); WHITE BLOOD COUNT 8.4 10^3/ul (4.5-11.0)
[2018-02-27 17:11] VITALS: RESP 18
[2018-02-27 17:15] LABS: INR 1.09 (0.93-1.08); PARTIAL THROMBOPLASTIN TIME 25.9 Seconds (25.1-36.5); PROTHROMBIN TIME 12.4 SECONDS (9.4-12.5)
[2018-02-27 17:17] LABS: ALB/GLOB RATIO 1.6 (1.1-1.8); ALBUMIN 4.3 g/dL (3.0-4.8); ALT/SGPT 26 U/L (7-56); AST/SGOT 18 U/L (14-36); BLOOD UREA NITROGEN 8 mg/dL (7-21); CALCIUM 9.7 mg/dL (8.4-10.5); GFR AFRICAN-AMERICAN > 60; GFR NON-AFRICAN AMERICAN > 60
[2018-02-27 17:29] LABS: B-TYPE NATRIURETIC PEPTIDE 511 pg/mL (0-450); TROPONIN I < 0.01 ng/mL
[2018-02-27] MEDS: Sodium Chloride 0.9% 1,000 ML IV SCH (18:38)
--- NOTE | 2018-02-27 19:13 | CT ---
EXAM: CT Head Without Intravenous Contrast EXAM DATE/TIME: 02/27/2018 4:48 PM CLINICAL HISTORY: 57 years old, female; Injury or trauma; Fall; Initial encounter; Concussion / head injury; Additional info: Fall, syncope x 1 hour TECHNIQUE: Axial computed tomography images of the head/brain without intravenous contrast. All CT scans at this facility use one or more dose reduction techniques, viz.: automated exposure control; ma/kV adjustment per patient size (including targeted exams where dose is matched to indication; i.e. head); or iterative reconstruction technique. Coronal and sagittal reformatted images were created and reviewed. COMPARISON: No relevant prior studies available. FINDINGS: BRAIN: 2 x 1.2 x 0.8 cm ovoid, well-defined, smoothly- marginated, calcified mass in the right parietal region, most likely a calcified meningioma. No significant acute abnormality identified. No acute hemorrhage seen within the brain. No acute extra-axial fluid collections visualized. No evidence of significant mass effect within the brain. VENTRICLES: No evidence of significant hydrocephalus. BONES/JOINTS: No acute fractures or other acute bony abnormality noted. SOFT TISSUES: No acute abnormality of the visualized soft tissues is seen. SINUSES: No evidence of sinus fluid levels. MASTOID AIR CELLS: Mastoid air cells appear clear. IMPRESSION: - No evidence of acute intracranial injury or fractures. - Incidental 2.7 cm calcified right parietal mass, most likely a meningioma. - See above for remaining findings.
--- NOTE | 2018-02-27 19:21 | CT ---
EXAM: CT Maxillofacial Without Intravenous Contrast EXAM DATE/TIME: 02/27/2018 4:51 PM CLINICAL HISTORY: 57 years old, female; Injury or trauma; Fall; Initial encounter; Blunt trauma (contusions or hematomas); Forehead; Additional info: Fall, rt. Eyebrow laceration, syncope TECHNIQUE: Axial computed tomography images of the face without intravenous contrast. All CT scans at this facility use one or more dose reduction techniques, viz.: automated exposure control; ma/kV adjustment per patient size (including targeted exams where dose is matched to indication; i.e. head); or iterative reconstruction technique. Coronal and sagittal reformatted images were created and reviewed. COMPARISON: No relevant prior studies available. FINDINGS: BONES/JOINTS: No acute fractures seen. No evidence of acute dislocation. SOFT TISSUES: Right periorbital soft tissue swelling. ORBITS: Intraorbital soft tissues appear grossly intact. No evidence of significant orbital emphysema. SINUSES: Minimal sinus inflammatory disease. There is minimal to mild mucosal thickening in the frontal and anterior ethmoid sinuses bilaterally. No evidence of sinus fluid levels. IMPRESSION: - No acute facial bone fractures identified. - See above for remaining findings.
--- NOTE | 2018-02-27 19:32 | CT ---
EXAM: CT Cervical Spine Without Intravenous Contrast EXAM DATE/TIME: 02/27/2018 4:48 PM CLINICAL HISTORY: 57 years old, female; Injury or trauma; Fall; Initial encounter; Blunt trauma; Prior surgery; Additional info: Fall, neck pain, syncope x 1 hour TECHNIQUE: Axial computed tomography images of the cervical spine without intravenous contrast. All CT scans at this facility use one or more dose reduction techniques, viz.: automated exposure control; ma/kV adjustment per patient size (including targeted exams where dose is matched to indication; i.e. head); or iterative reconstruction technique. Coronal and sagittal reformatted images were created and reviewed. COMPARISON: No relevant prior studies available. FINDINGS: LIMITATIONS: Streak artifact from metallic hardware in the cervical spine. VERTEBRAE: Metallic anterior plate and screw device extending from C4 to C6. This appears intact. No acute cervical spine fractures visualized. No significant vertebral subluxation seen on the sagittal reformatted images. No evidence of acute facet dislocation. DISCS/SPINAL CANAL/NEURAL FORAMINA: Marked degenerative disc disease at C4-5 and C5-6. There are posterior osteophytes at these levels, which do appear to be causing spinal canal stenosis. SOFT TISSUES: No acute abnormality of the visualized soft tissues is seen. LUNG APICES: Mild to moderate diffuse centrilobular emphysematous changes in the lung apices bilaterally. IMPRESSION: - No acute cervical spine fractures identified. - Post operative changes. Evidence of prior fusion from C4 to C6. - See above for remaining findings.
[2018-02-27] MEDS ORDERED: Magnesium Sulfate 1 gm in D5W 1 GM/100 ML BAG IVPB ONE (19:48)
[2018-02-27] MEDS ORDERED: Morphine 4 mg/ml ISec IVP STA (20:13)
[2018-02-27] MEDS ORDERED: Morphine 2 mg/2 mL syringe IVP STA ×2 (20:59→21:01)
[2018-02-27 22:01] VITALS: BMI 25.9
[2018-02-28] MEDS: Sodium Chloride 0.9% 1,000 ML IV SCH (05:28)
--- NOTE | 2018-02-28 08:08 | RAD ---
PROCEDURE: Left Hip X-ray Radiographs. HISTORY: fall, lt. hip pain COMPARISON: None. FINDINGS: BONES: Normal. No fracture. JOINTS: Degenerative changes both hips. Orthopedic hardware traversing a subcapital fracture left femur SOFT TISSUES: Normal. OTHER FINDINGS: None. IMPRESSION: No acute findings. Concordant results with the preliminary interpretation rendered by the emergency department physician procedure.
--- NOTE | 2018-02-28 08:34 | RAD ---
HISTORY: medical clearance COMPARISON: 01/06/2018 FINDINGS: LUNGS: No active pulmonary disease. PLEURA: No significant pleural effusion identified, no pneumothorax apparent. CARDIOVASCULAR: No radiographic findings to suggest acute or significant cardiovascular disease. OSSEOUS STRUCTURES: No significant abnormalities. VISUALIZED UPPER ABDOMEN: Normal. OTHER FINDINGS: None. IMPRESSION: No active disease. No significant interval change compared to the prior examination(s).
[2018-02-28] MEDS ORDERED: Albuterol HFA 90 mcg/actuation (8 g) IH PRN (08:49)
[2018-02-28] MEDS ORDERED: Albuterol 0.083% Inhal Sol (2.5 mg/3 mL) UD INH PRN (08:55)
[2018-02-28] MEDS ORDERED: Oxycodone/Acetaminophen 2.5/325 mg Tab PO PRN (08:56)
[2018-02-28 09:46] LABS: ALB/GLOB RATIO 1.5 (1.1-1.8); ALBUMIN 3.7 g/dL (3.0-4.8); ALT/SGPT 18 U/L (7-56); AST/SGOT 20 U/L (14-36); BLOOD UREA NITROGEN 6 mg/dL (7-21); CALCIUM 8.9 mg/dL (8.4-10.5); GFR AFRICAN-AMERICAN > 60; GFR NON-AFRICAN AMERICAN > 60
[2018-02-28] MEDS ORDERED: Potassium Chloride 20 mEq ER Tab PO ONE (10:41)
[2018-02-28] MEDS: Insulin Reg-MEDIUM-Coverage SC SCH ×3 (13:00→22:35)
--- NOTE | 2018-02-28 16:55 | HP ---
HISTORY OF PRESENT ILLNESS: The patient is a 57 year old woman with a past medical history of CAD s/p PCI with stent placement x 2, COPD and T2DM who was admitted to [facility] approximately 1 month ago for management of an acute closed left hip fracture s/p mechanical fall who presented for evaluation s/p reported syncopal episode. The patient states that for the past several days she has had poor appetite and has not been eating or drinking fluids as she has been previously advised. She denied nausea, vomiting, diarrhea, fevers, chills, rigors or any constitutional symptoms associated with her poor p.o. intake. She has been compliant with her antihypertensive medications and reported increasing sensation of near syncope and gait unsteadiness. On the day of presentation to the ED she states that she was attempting to stand from a seated position and upon standing up she felt lightheaded and fell to the floor. She reports loss of consciousness for no more than 5 seconds and states that when she woke up she noted some bleeding from her right forehead but otherwise denied tongue biting, confusion or bowel bladder incontinence. She called 911 and was brought to the [facility] ED for further evaluation. Upon arrival to the ED, she was found to be afebrile however hypotensive with a blood pressure of 66/32 and with otherwise normal laboratory studies. Pertinent findings on physical examination included a laceration to the right orbital area , but otherwise no abnormalities were noted. The laceration was repaired with sutures. She was started on IV fluid hydration and subsequently admitted to the telemetry ceballos for continued management of vasovagal syncope. PAST MEDICAL HISTORY: As per HPI, also PUD, anxiety disorder and diverticulosis with prior admissions for diverticulitis. PAST SURGICAL HISTORY: As per HPI, also cholecystectomy, appendectomy, partial colectomy secondary to extensive diverticulosis and diskectomy with fusion of C4-C6. ALLERGIES: Macrolides (cause rash) and IV contrast (causes rash). MEDICATIONS: Januvia 100 mg p.o. daily, Glipizide 10 mg p.o. daily, Levemir 25 units subcu every evening, Atenolol 100 mg p.o. daily, Aspirin 81 mg p.o. daily, Singulair 10 mg p.o. daily, Lyrica 200 mg p.o. b.i.d., Ventolin HFA 2 puffs every 4-6 hours p.r.n. wheeze and Advair 250/50 1 puff every 12 hours. FAMILY HISTORY: Noncontributory. SOCIAL HISTORY: The patient reports an active [id number] smoking history and social alcohol use. She denies illicit drug abuse. REVIEW OF SYSTEMS: The patient denies chest pain, palpitations, exertional dyspnea, orthopnea, lower extremity edema, claudication or headaches. The remainder of review of systems is negative except as per HPI. PHYSICAL EXAMINATION VITAL SIGNS: Temperature 98.3, pulse 60, blood pressure 120/68, respiratory rate 18, oxygen saturation 97% on room air. GENERAL: No apparent distress. HEENT: Laceration with sutures over the right orbital region. PERRL. EOMI. No scleral icterus. No conjunctival pallor. NECK: Supple with full range of motion. No JVD. No bruits. LUNGS: Clear to auscultation. CARDIOVASCULAR: Regular rate and rhythm. Normal S1 and S2. ABDOMEN: Normoactive bowel sounds. Soft, nontender, nondistended. EXTREMITIES: No edema. NEUROLOGIC: Awake, alert and oriented x3. No focal motor deficits. LABORATORY DATA: CBC reviewed and unremarkable. CMP reviewed and unremarkable. Troponin less than 0.01. IMAGING STUDIES: 1. Chest x-ray demonstrated no active disease. 2. CT head without contrast demonstrated no acute intracranial injury, but did demonstrate incidental 2.7 cm calcified right parietal mass most likely meningioma. 3. CT of the C-spine without contrast demonstrated no acute pathology. 4. Maxillofacial CT without contrast demonstrated no acute pathology. 5. X-ray of the left hip demonstrated orthopedic hardware in place with no acute pathology. ASSESSMENT: The patient is a 57 year old woman with multiple medical comorbidities including CAD s/p PCI with stent placement, COPD and HTN wo presented s/p syncopal episode and was admitted for management of vasovagal syncope. PLAN: 1. Vasovagal syncope. Continue with aggressive IV fluid hydration. Continue to encourage p.o. intake. Advise the patient to change positions slowly. Neuroimaging studies reviewed and no acute pathology is noted. 2. Hypertension. Blood pressure is improving. We will hold atenolol at present and resume as needed. 3. COPD. Continue supplemental oxygen and bronchodilators as needed. 4. Type 2 diabetes mellitus with diabetic neuropathy. Resume glipizide 10 mg p.o. daily, Januvia 100 mg p.o. daily and medium dose insulin sliding scale for coverage and Levemir 25 units subcu every evening. 5. CAD s/p PCI with stent placement. Resume aspirin 81 mg p.o. daily. The patient declined statin therapy because of history of myopathy. 6. Peptic ulcer disease. 7. Questionable meningioma noted on CT of the head. We will pursue an outpatient MRI for further evaluation and obtain neurological followup on an outpatient basis. 8. Prophylaxis. GI prophylaxis is not indicated as the patient is eating. DVT prophylaxis is not indicated as the patient is ambulatory. CODE STATUS: Full code. Yasmany Alston MD MTDD
[2018-02-28] MEDS ORDERED: Insulin Detemir 100 units/ml Vial (Levemir) SC SCH (18:00)
[2018-03-01 06:08] VITALS: TEMP 98.6; O2SAT 96
[2018-03-01] MEDS: Insulin Reg-MEDIUM-Coverage SC SCH (08:31)
[2018-03-01 09:32] VITALS: BP 136/72; PULSE 71
--- NOTE | 2018-03-01 10:35 | PN ---
SUBJECTIVE: The patient was seen and examined at bedside on the telemetry ceballos. No acute events overnight. She remains afebrile and hemodynamically stable. This morning she feels okay, offers no complaints and is looking forward to going home. OBJECTIVE: VITAL SIGNS: Temperature 98.6, pulse 74, blood pressure 172/72, respiratory rate 18, oxygen saturation 96% on room air. GENERAL: No apparent distress. HEENT: PERRL. EOMI. No scleral icterus. No conjunctival pallor. Laceration to the right orbital region with sutures in place. NECK: No JVD. No bruit. LUNGS: Clear to auscultation. CARDIOVASCULAR: Regular rate and rhythm. Normal S1 and S2. ABDOMEN: Normoactive bowel sounds. Soft, nontender, nondistended. EXTREMITIES: No edema. NEUROLOGIC: Awake, alert, and oriented x 3. No focal motor deficits. LABORATORY DATA: Morning labs are pending. ASSESSMENT: The patient is a 57 year old woman with multiple medical comorbidities including CAD s/p PCI with stent placement, COPD and HTN who presented s/p syncopal episode and was admitted for management of vasovagal syncope. PLAN: 1. Vasovagal syncope, resolved, with etiology likely secondary to dehydration/ poor p.o. intake and overmedication with antihypertensives. 2. Hypertension. BP improving s/p aggressive IV fluid hydration. We will resume Atenolol at lower dose of Atenolol 50 mg p.o. daily. 3. COPD. Continue supplement oxygen and bronchodilators as needed. 4. IDDM with diabetic neuropathy. Continue Glipizide 10 mg p.o. daily, Januvia 100 mg p.o. daily, Levemir 25 units SC every evening, and medium dose insulin sliding scale. 5. CAD s/p PCI with stent placement. Continue Aspirin 81 mg p.o. daily. The patient declines statin due to history of myopathy. 6. Peptic ulcer disease. 7. Questionable meningioma on CT of the head. We will pursue an outpatient MRI for further evaluation. 8. Prophylaxis. GI prophylaxis is not indicated as the patient is eating. DVT prophylaxis is not indicated as the patient is ambulatory. 9. Disposition. The patient for discharge to home today. CODE STATUS: Full code. Yasmany Alston MD [facility] # [id number] GALEN
--- NOTE | 2018-03-02 14:34 | DS ---
ADMITTING DIAGNOSIS: Vasovagal syncope. DISCHARGE DIAGNOSIS: Vasovagal syncope. SECONDARY DIAGNOSES: Hypertension, COPD, IDDM with diabetic neuropathy, CAD s/p PCI with stent placement, peptic ulcer disease and incidental intracranial mass possibly representing a meningioma. CONSULTATIONS: None. PROCEDURES: None. IMAGING STUDIES: 1. Chest x-ray demonstrated no acute pathology. 2. CT of the head without contrast demonstrated an incidental 2.7 cm calcified right parietal mass most likely representing a meningioma but otherwise no acute pathology. HISTORY OF PRESENT ILLNESS: The patient is a 57 year old woman with a past medical history of CAD s/p PCI with stent placement x 2, COPD and IDDM with diabetic neuropathy who was admitted to [facility] approximately 1 month ago for management of an acute closed left hip fracture s/p mechanical fall who presented for evaluation of reported syncopal episode. The patient states that for the past several days she has had poor appetite but denied nausea, vomiting, diarrhea, fevers, chills, rigors or any constitutional symptoms. She has remained compliant with her antihypertensive medications and has been experiencing episodes of presyncope particularly with positional changes. On the day of presentation to the ED she was attempting to stand from a seated position and upon standing she felt lightheaded and fell to the floor. She reported loss of consciousness for no more than 5 seconds and upon regaining consciousness she noted some bleeding from her right forehead. She denied tongue biting, confusion or bowel/bladder incontinence. She called 911 and was brought to the [facility] ED for further evaluation. Upon arrival to the ED she was found to be afebrile, hypotensive with a blood pressure of 66/32 and otherwise hemodynamically stable. Laboratory studies disclosed no abnormalities. She underwent placement of sutures to the laceration at her forehead, was started on aggressive IV fluid hydration with normal saline and was admitted to the telemetry ceballos for continued management of syncope. HOSPITAL COURSE: Upon admission to the telemetry ceballos she was maintained on IV fluids consisting of normal saline at 100 mL per hour. She was also advised to increase her oral intake and was placed on a regular diet. Her antihypertensives were held given her presentation with symptomatic hypotension. Over the following 24 hours she was noted to have resolution of her symptoms and immediate improvement in her blood pressure. She was ambulating around the telemetry ceballos with no recurrence of her symptoms and was advised that the etiology of her syncope was likely vasovagal in nature due to over-medication with antihypertensives in the setting of poor p.o. intake. She was restarted on a lower dose of Atenolol at 50 mg daily (previously she was on Atenolol 100 mg p.o. daily) and was advised that she will need close followup on an outpatient basis to recheck her blood pressure and adjust her medications as needed. Given her hemodynamic stability and resolution of symptoms, on hospital day #2 she was deemed stable for discharge to home. CONDITION: Good, improved. DISPOSITION: Home. DISCHARGE MEDICATIONS: Januvia 100 mg p.o. daily, Glipizide 10 mg p.o. daily, Levemir 25 units SC each evening, Lyrica 200 mg p.o. b.i.d., Aspirin 81 mg p.o. daily, Singulair 10 mg p.o. daily, Atenolol 50 mg p.o. daily, Ventolin HFA 2 puffs q. 4-6 hours p.r.n. dyspnea or wheeze, Advair 250/50 mcg 1 puff q. 12 hours and Tramadol 50 mg #90 1 one tablet p.o. q. 8 hours p.r.n. pain. DISCHARGE INSTRUCTIONS: The patient was advised to maintain adequate p.o. intake and change positions slowly. She was also advised that if she has any recurrence of her symptoms to present to her PMD or to the nearest ED immediately. FOLLOWUP: The patient will follow up with her PMD within 1 week of discharge for suture removal and to recheck her blood pressure. She will also be sent for an outpatient MRI to further evaluate the incidental lesions noted on CT of her head. Yasmany Alston MD [facility]EN
== END 2018-03-01 12:11 | disposition home or self-care (01) | DRG 312 ==
LOC: ED 16:26 → ERH 19:59 → 2RNO 22:13 → OBSVTOIN 02-28 16:53
PROVIDERS: ADMIT Student in an Organized Health Care Education/Training Program; ATTEND Student in an Organized Health Care Education/Training Program
PROC: 3E0234Z Introduction of Serum, Toxoid and Vaccine into Muscle, Percutaneous Approach (ICD-10-PCS; principal; 2018-02-27)
DX: I95.1 Orthostatic hypotension (principal); J44.9 Chronic obstructive pulmonary disease, unspecified; I25.10 Atherosclerotic heart disease of native coronary artery without angina pectoris; I10 Essential (primary) hypertension; E11.40 Type 2 diabetes mellitus with diabetic neuropathy, unspecified; S01.81XA Laceration without foreign body of other part of head, initial encounter; W18.30XA Fall on same level, unspecified, initial encounter; M50.321 Other cervical disc degeneration at C4-C5 level; M50.322 Other cervical disc degeneration at C5-C6 level; F17.210 Nicotine dependence, cigarettes, uncomplicated; Z79.4 Long term (current) use of insulin; Z95.5 Presence of coronary angioplasty implant and graft; Z90.49 Acquired absence of other specified parts of digestive tract; Z23 Encounter for immunization; Z87.11 Personal history of peptic ulcer disease

== ENCOUNTER 2018-03-04 02:37 | Inpatient (IN) | payer MEDICARE, MEDICAID ==
[2018-03-04 02:40] VITALS: BMI 26.6
--- NOTE | 2018-03-04 02:46 | ED PDOC ---
Arrival/HPI - General Time Seen by Provider: 03/04/18 02:38 Historian: EMS - Critical Care Critical Care Minutes: 45 minutes (Required my immediate attention upon arrival. Frequent reassessments. ) - History of Present Illness Narrative History of Present Illness (Text): 03/04/18 02:41 A 57 year old female, whose past medical history includes hypertension, COPD, diabetes, CAD, PUD, diverticulitis, is brought into the emergency department via EMS after becoming unresponsive this evening while going to bed. As per EMS , A family member was in the room while the patient was getting into bed. The family notes that she was walking, talking, and alert this evening. As per EMS, the patient has been unresponsive for the past 30 minutes. The patient was seen immediately upon arrival. HPI/ROS limited due to acuity of patient's condition. PMD: Dr. Alston Time/Duration: Prior to Arrival Symptom Onset: Sudden Symptom Course: Unchanged Activities at Onset: Rest, Light Context: Home Past Medical History - Provider Review Nursing Documentation Reviewed: Yes - Infectious Disease Hx of Infectious Diseases: None - Tetanus Immunization Tetanus Immunization: Unknown - Cardiac Hx Hypertension: Yes - Pulmonary Hx Chronic Obstructive Pulmonary Disease (COPD): Yes - Neurological Hx Neurological Disorder: No - HEENT Hx HEENT Disorder: No - Renal Hx Renal Disorder: No - Endocrine/Metabolic Hx Diabetes Mellitus Type 2: Yes (iddm) - Hematological/Oncological Hx Blood Disorders: No - Integumentary Hx Dermatological Disorder: No - Musculoskeletal/Rheumatological Hx Falls: Yes - Gastrointestinal Hx Gastrointestinal Disorders: Yes Hx Diverticulitis: Yes Other/Comment: COLON POLYPS, - Genitourinary/Gynecological Hx Genitourinary Disorders: No - Psychiatric Hx Emotional Abuse: No Hx Physical Abuse: No Hx Substance Use: No - Surgical History Hx Coronary Stent: Yes (x2 2009) Hx Orthopedic Surgery: Yes (Left hip Fx) - Anesthesia Hx Anesthesia: Yes Hx Anesthesia Reactions: No Hx Malignant Hyperthermia: No - Suicidal Assessment Feels Threatened In Home Enviroment: No Family/Social History - Physician Review Nursing Documentation Reviewed: Yes Family/Social History: No Known Family HX Smoking Status: Light Smoker < 10 Cigarettes Daily Hx Alcohol Use: No Hx Substance Use: No Hx Substance Use Treatment: No Allergies/Home Meds Allergies/Adverse Reactions: Allergies MYCINS Allergy (Mild, Uncoded 03/04/18 03:25) ANAPHYLAXIS Home Medications: Home Meds Medication Instructions Recorded Confirmed busPIRone [Buspar] 10 mg PO BID 11/15/15 03/04/18 Aspirin [Ecotrin] 81 mg PO DAILY 02/28/16 03/04/18 Atenolol [Tenormin] 50 mg PO QAM 02/28/16 03/04/18 Pregabalin [Lyrica] 200 mg PO BID 02/28/16 03/04/18 Levocetirizine Dihydrochloride 5 mg PO DAILY 09/16/16 03/04/18 [Xyzal] GlipiZIDE [Glipizide] 10 mg PO DAILY 10/08/16 03/04/18 Montelukast [Singulair] 10 mg PO DAILY 10/08/16 03/04/18 Hydrocodone/Acetaminophen [Vicodin 1 tab PO BID PRN 03/04/18 03/04/18 5 mg-300 mg] oxyCODONE/Acetaminophen [Percocet 1 tab PO BID PRN 03/04/18 03/04/18 5/325 mg Tab] Review of Systems - Physician Review All systems were reviewed & negative as marked: Yes - Review of Systems Systems not reviewed;Unavailable: Acuity of Condition Physical Exam - Physical Exam Narrative Physical Exam (Text): 03/04/18 02:46 Constitutional: No acute distress. Head: Normocephalic. Atraumatic. Eyes: PERRL. ENT: Moist mucous membranes. Neck: Supple. Cardiovascular: Regular rate. Chest: No tenderness. Respiratory: Clear to auscultation bilaterally. GI: Soft. Nontender. Nondistended. Back: No CVA tenderness. Musculoskeletal: No tenderness or swelling of extremities. Skin: No rash. Neurologic: Alert, no focal deficit. Physical Exam Limitations: Other (Unresponsive) Vital Signs Reviewed: Yes Vital Signs Pulse Resp BP Pulse Ox 03/04/18 03:44 105 H 20 142/86 99 03/04/18 03:13 100 H 102 H 105/70 99 03/04/18 02:37 71 16 101/63 94 L Blood Pressure: Normal Pulse: Regular Respiratory Rate: Normal Pain Distress: None Mental Status: Positive for: other (Unresponsive) Medical Decision Making ED Course and Treatment: 03/04/18 02:47 Impression: A 57 year old female is brought into the emergency department via EMS after becoming unresponsive this evening. Plan: -- Head CT -- CTA Head/ Neck -- Chest X-ray -- EKG -- Labs -- IV Fluids -- Reassess and disposition Prior Visits: Notes and results from previous visits were reviewed. Patient was last seen in the emergency department on 02/27/2018. The patient was seen in the emergency department for complaint of headache and neck pain. The patient was hospitalized. Progress Notes: 03/04/18 02:37: Code stroke was called. 03/04/18 02:49: Case discussed with Dr. Ramos. 03/04/18 03:11: Upon going through patient's medications, prescription bottles of Perocet and Vicodin were found. Both were filled within the last month and both were empty. Upon return from CT, Narcan 0.4 mg administered. Patient with improved mental status. Opening eyes. No longer CODE STROKE case. 03/04/18 03:26: Patient is awake, speaking, and moving. No focal deficits. Patient is requesting nebulizer treatment for her COPD. CT Head Without Intravenous Contrast EXAM DATE/TIME: 03/04/2018 2:40 AM Dictated and Authenticated by: Jaleesa Quach MD 03/04/2018 3:27 AM Eastern Time ([place] & [place]) IMPRESSION: No acute findings. CT Angiography Head With Intravenous Contrast Dictated and Authenticated by: Jaleesa Quach MD 03/04/2018 3:56 AM Eastern Time ([place] & [place]) IMPRESSION: No acute findings. CT Angiography Neck With Intravenous Contrast EXAM DATE/TIME: 03/04/2018 2:40 AM Dictated and Authenticated by: Jaleesa Quach MD 03/04/2018 3:56 AM Eastern Time ([place] & [place]) IMPRESSION: Carotid calcifications, much greater on the left, without significant stenosis or occlusion. 03/04/18 05:20: Chest X-ray read and interpreted by me shows not acute disease. EKG: Ordered, reviewed, and independently interpreted the EKG. Rate : 77 BPM Rhythm : NSR Interpretation : No ST-T wave changes 03/04/18 05:22: Case discussed with Dr. Alston. Likely opioid overdose and COPD exacerbation. - Lab Interpretations Lab Results: 03/04/18 02:41 03/04/18 02:40 Lab Results 03/04/18 03:25: Urine Opiates Screen Positive H, Urine Methadone Screen Negative , Ur Barbiturates Screen Negative, Ur Phencyclidine Scrn Negative, Ur Amphetamines Screen Negative, U Benzodiazepines Scrn Positive, U Oth Cocaine Metabols Negative, U Cannabinoids Screen Positive H 03/04/18 03:05: Alcohol, Quantitative < 10 03/04/18 03:05: Salicylates < 1 L, Acetaminophen < 10.0 L 03/04/18 03:05: Blood Type B POSITIVE, Antibody Screen Negative, BBK History Checked Patient has bt 03/04/18 03:05: PT 12.7 H, INR 1.11 H, APTT 25.4 03/04/18 02:41: WBC 7.4, RBC 3.89, Hgb 11.8 L D, Hct 34.3 L, MCV 88.2, MCH 30.3 , MCHC 34.4, RDW 13.5, Plt Count 260, MPV 10.2, Gran % 43.2 L, Lymph % (Auto) 42.5 H, Hancock % (Auto) 9.6 H, Eos % (Auto) 4.3, Baso % (Auto) 0.4, Gran # 3.21, Lymph # (Auto) 3.2, Hancock # (Auto) 0.7 H, Eos # (Auto) 0.3, Baso # (Auto) 0.03 03/04/18 02:40: Sodium 135, Potassium 3.3 L, Chloride 103, Carbon Dioxide 25, Anion Gap 10, BUN 16, Creatinine 0.6 L, Est GFR ( Amer) > 60, Est GFR ( Non-Af Amer) > 60, Random Glucose 101, Calcium 8.7, Total Bilirubin 0.2, AST 19 , ALT 17, Alkaline Phosphatase 71, Troponin I < 0.01, Total Protein 5.4 L, Albumin 3.1, Globulin 2.3, Albumin/Globulin Ratio 1.4, Triglycerides 223 H, Cholesterol 137, LDL Cholesterol Direct 71, HDL Cholesterol 37 I have reviewed the lab results: Yes - RAD Interpretation Radiology Orders: 03/04/18 02:40 CTA HEAD/NECK CODE STROKE [CT] Stat HEAD W/O (CODE STROKE) [CT] Stat CHEST PORTABLE [RAD] Stat - EKG Interpretation Interpreted by ED Physician: Yes Type: 12 lead EKG - Medication Orders Current Medication Orders: Sodium Chloride (Sodium Chloride 0.9%) 1,000 mls @ 100 mls/hr IV .Q10H NOELLE Last Admin: 03/04/18 03:11 Dose: 100 mls/hr eMAR Start Stop Document 03/04/18 03:11 (Rec: 03/04/18 03:11 [id number]) Intravenous Solution Start Date 03/04/18 Start Time 03:11 Discontinued Medications Albuterol/Ipratropium (Duoneb 3 Mg/0.5 Mg (3 Ml) Ud) 3 ml IH STAT STA Stop: 03/04/18 03:27 Last Admin: 03/04/18 03:26 Dose: 3 ml Methylprednisolone (Solu-Medrol) 125 mg IVP STAT STA Stop: 03/04/18 03:31 Last Admin: 03/04/18 03:38 Dose: 125 mg IVP Administration Document 03/04/18 03:38 RG (Rec: 03/04/18 03:40 [id number]) Charges for Administration # of IVP Administrations 1 Naloxone HCl (Narcan) 0.4 mg IVP STAT STA Stop: 03/04/18 03:13 Last Admin: 03/04/18 03:12 Dose: 0.4 mg IVP Administration Document 03/04/18 03:12 RG (Rec: 03/04/18 03:19 [id number]) Charges for Administration # of IVP Administrations 1 - Scribe Statement The provider has reviewed the documentation as recorded by the Scribe Rupal Golden Provider Scribe Attestation: All medical record entries made by the Scribe were at my direction and personally dictated by me. I have reviewed the chart and agree that the record accurately reflects my personal performance of the history, physical exam, medical decision making, and the department course for this patient. I have also personally directed, reviewed, and agree with the discharge instructions and disposition. Disposition/Present on Arrival - Present on Arrival Any Indicators Present on Arrival: Yes History of DVT/PE: No History of Uncontrolled Diabetes: Yes Urinary Catheter: No History Surgical Site Infection Following: None - Disposition Have Diagnosis and Disposition been Completed?: Yes Diagnosis: COPD exacerbation, Altered mental status Disposition: HOSPITALIZED Disposition Time: 05:26 Patient Plan: Admission, Telemetry Condition: GUARDED Referrals: Jemma Alston MD [Primary Care Provider] - Follow up with primary
[2018-03-04 02:50] LABS: BASO # 0.03 K/mm3 (0.0-2.0); BASO % 0.4 % (0.0-3.0); EOS # 0.3 (0.0-0.7); EOS % 4.3 % (1.5-5.0); GRAN # 3.21 (1.4-6.5); GRAN % 43.2 % (50.0-68.0); LYMPH # 3.2 (1.2-3.4); LYMPH % 42.5 % (22.0-35.0); MEAN CELL VOLUME 88.2 fl (80.0-105.0); MEAN CORPUSCULAR HEMOGLOBIN 30.3 pg (25.0-35.0); MEAN CORPUSCULAR HGB CONC 34.4 g/dl (31.0-37.0); MEAN PLATELET VOLUME 10.2 fl (7.0-11.0); MONO # 0.7 (0.1-0.6); MONO % 9.6 % (1.0-6.0); RBC 3.89 10^6/uL (3.5-6.1); RED CELL DISTRIBUTION WIDTH 13.5 % (11.5-14.5); WHITE BLOOD COUNT 7.4 10^3/ul (4.5-11.0)
[2018-03-04] MEDS ORDERED: Iodixanol 320 MG/ML 100 ML BOTTLE IV ONE (02:50)
[2018-03-04 03:01] LABS: HEMOGLOBIN 11.8 g/dL (12.0-16.0)
[2018-03-04] MEDS ORDERED: Naloxone 0.4 mg/ml Inj (Adult) ONE (03:06)
[2018-03-04] MEDS: Sodium Chloride 0.9% 1,000 ML IV SCH ×2 (03:11→07:00)
[2018-03-04] MEDS ORDERED: Naloxone 0.4 mg/ml Inj (Adult) IVP STA (03:12)
[2018-03-04] MEDS ORDERED: Albuterol-Ipratrop 3 mg / 0.5 (3 ml) UD IH STA (03:26)
--- NOTE | 2018-03-04 03:27 | CT ---
EXAM: CT Head Without Intravenous Contrast EXAM DATE/TIME: 03/04/2018 2:40 AM CLINICAL HISTORY: 57 years old, female; Signs and symptoms; Altered mental status/memory loss; Additional info: Code stroke TECHNIQUE: Axial computed tomography images of the head/brain without intravenous contrast. All CT scans at this facility use one or more dose reduction techniques, viz.: automated exposure control; ma/kV adjustment per patient size (including targeted exams where dose is matched to indication; i.e. head); or iterative reconstruction technique. Coronal and sagittal reformatted images were created and reviewed. COMPARISON: CT - HEAD W/O CONTRAST 2018-02-27 18:06 FINDINGS: No intracranial hemorrhage. No intracranial edema. No evidence of infarct. There is a stable 1.7 x 0.8 cm partially calcified mass in the right parietal region likely meningioma. Small stable basal ganglia calcifications. The sinuses and mastoid air cells are clear. IMPRESSION: No acute findings.
[2018-03-04 03:34] LABS: INR 1.11 (0.93-1.08); PARTIAL THROMBOPLASTIN TIME 25.4 Seconds (25.1-36.5); PROTHROMBIN TIME 12.7 SECONDS (9.4-12.5)
[2018-03-04 03:40] LABS: LDL CHOLESTEROL 71 mg/dL (0-129)
[2018-03-04 03:43] LABS: TROPONIN I < 0.01 ng/mL
[2018-03-04 03:46] VITALS: O2SAT 99
[2018-03-04 03:47] LABS: ALB/GLOB RATIO 1.4 (1.1-1.8); ALBUMIN 3.1 g/dL (3.0-4.8); ALT/SGPT 17 U/L (7-56); AST/SGOT 19 U/L (14-36); BLOOD UREA NITROGEN 16 mg/dL (7-21); CALCIUM 8.7 mg/dL (8.4-10.5); GFR AFRICAN-AMERICAN > 60; GFR NON-AFRICAN AMERICAN > 60; HDL CHOLESTEROL 37 mg/dL (29-60)
--- NOTE | 2018-03-04 03:56 | CT ---
EXAM: CT Angiography Head With Intravenous Contrast CLINICAL HISTORY: 57 years old, female; Signs and symptoms; Syncope and collapse; Additional info: Code stroke, sudden altered mental status TECHNIQUE: Axial computed tomographic angiography images of the head with intravenous contrast using CT angiography protocol. All CT scans at this facility use one or more dose reduction techniques, viz.: automated exposure control; ma/kV adjustment per patient size (including targeted exams where dose is matched to indication; i.e. head); or iterative reconstruction technique. MIP reconstructed images were created and reviewed. Coronal and sagittal reformatted images were created and reviewed. CONTRAST: 96 mL of VISI 320 administered intravenously. COMPARISON: No relevant prior studies available. FINDINGS: The basilar artery is patent. The posterior cerebral arteries are patent. Calcifications are present within the internal carotid arteries without occlusion. The middle and anterior cerebral arteries are patent. IMPRESSION: No acute findings. EXAM: CT Angiography Neck With Intravenous Contrast EXAM DATE/TIME: 03/04/2018 2:40 AM CLINICAL HISTORY: 57 years old, female; Signs and symptoms; Syncope and collapse; Additional info: Code stroke, sudden altered mental status TECHNIQUE: Axial computed tomographic angiography images of the neck with intravenous contrast using CT angiography protocol. All CT scans at this facility use one or more dose reduction techniques, viz.: automated exposure control; ma/kV adjustment per patient size (including targeted exams where dose is matched to indication; i.e. head); or iterative reconstruction technique. MIP reconstructed images were created and reviewed. Coronal and sagittal reformatted images were created and reviewed. CONTRAST: 96 mL of VISI 320 administered intravenously. COMPARISON: CT - HEAD W/O (CODE STROKE) 2018-03-04 02:49 FINDINGS: Anterior plate and screws C4 through C6 produce artifact. The vertebral arteries are patent bilaterally. Calcifications within the left common carotid artery. Single calcification the right common carotid artery. No significant stenosis or occlusion of the common carotid arteries. Calcifications are noted within carotid bulbs bilaterally much greater on the left. No gross soft tissue abnormalities. Emphysematous changes in the upper lungs. IMPRESSION: Carotid calcifications, much greater on the left, without significant stenosis or occlusion.
[2018-03-04 04:02] LABS: ACETAMINOPHEN < 10.0 ug/ml (10.0-20.0); SALICYLATE < 1 mg/dL (2.0-20.0)
[2018-03-04 04:12] LABS: PHENCYCLIDINE, UR NEGATIVE (NEGATIVE)
[2018-03-04 04:32] LABS: BARBITURATES, UR NEGATIVE (NEGATIVE); BENZODIAZEPINES, UR POSITIVE (NEGATIVE); OPIATES, UR POSITIVE (NEGATIVE)
[2018-03-04 06:32] VITALS: BP 113/31; PULSE 90; RESP 18
--- NOTE | 2018-03-04 07:08 | RAD ---
HISTORY: Code Stroke COMPARISON: 02/27/2018 FINDINGS: LUNGS: No active pulmonary disease. PLEURA: No significant pleural effusion identified, no pneumothorax apparent. CARDIOVASCULAR: No radiographic findings to suggest acute or significant cardiovascular disease. OSSEOUS STRUCTURES: No significant abnormalities. VISUALIZED UPPER ABDOMEN: Normal. OTHER FINDINGS: None. IMPRESSION: No active disease. No significant interval change compared to the prior examination(s).
--- NOTE | 2018-03-04 10:44 | CP.PCM.PN ---
Subjective - Date & Time of Evaluation Date of Evaluation: 03/04/18 Time of Evaluation: 10:40 - Subjective Subjective: PGY-[address] Alston CC: AMA Ms Mancuso, 57 F, with Hx of recent ORIF L hip, came in alter mental status, found to have overdose on percocet and vicodin, (pills in bottles in her pockets ). She had negative CT head. This morning, she said "I feel fine. I want to go. " I explained that she is being treated for overdose. She left her walker at home. She will call a cab to her apartment, which is 2 steps from pavement to apartment complex door. And it is another 6 steps from door to her girlfriend apartment door, [facility] [phone]. VS: Stable GEN: NAD, sitting by bedside Neuro: AAOx3 Gait: limp on L side, no pain A/P: AMA - talked to Dr Alston, who agreed with AMA - Pt promised that she will visit Dr Alston next (her appointment) - Caution overuse of percocet and vicodin - Explained that she is here for overdose and AMS, and currently being treated for. Pt was told of risk of AMA. (Documented in AMA paper.) - Pt understand and still wants AMA - Pt was escorted out of the building on a wheelchair until cab arrived Objective - Vital Signs/Intake and Output Vital Signs (last 24 hours): Temp Pulse Resp BP Pulse Ox 90 18 113/31 L 99 03/04/18 06:32 03/04/18 08:30 03/04/18 06:32 03/04/18 06:32 - Medications Medications: Current Medications Sodium Chloride (Sodium Chloride 0.9%) 1,000 mls @ 100 mls/hr IV .Q10H NOELLE Last Admin: 03/04/18 07:00 Dose: 100 mls/hr - Labs Labs: PT 12.7 SECONDS (9.4-12.5) H 03/04/18 03:05 INR 1.11 (0.93-1.08) H 03/04/18 03:05 APTT 25.4 Seconds (25.1-36.5) 03/04/18 03:05
--- NOTE | 2018-03-04 18:55 | CARD ---
APPROVED REPORT EKG Measurement Heart [id number] <Conclusion> Normal sinus rhythm Normal ECG
--- NOTE | 2018-03-04 20:43 | HP ---
LOCATION: She is currently in room 277, bed 2. HISTORY OF PRESENT ILLNESS: The patient is a 57-year-old female with a past medical history of hypertension, COPD, diabetes, coronary artery disease, diverticulitis, and peptic ulcer disease who was brought to the emergency room after being found unresponsive while going to bed. Family notes that she was walking, talking, was perfectly normal prior to this occurrence. PAST MEDICAL HISTORY: As noted above. SOCIAL HISTORY: The patient smokes approximately 10 cigarettes a day. FAMILY HISTORY: Noncontributory. ALLERGIES: TO MYCINS. HOME MEDICATIONS: Refer the chart. PHYSICAL EXAMINATION: VITAL SIGNS: Afebrile, blood pressure 101/63, respiratory rate of 16, pulse rate of 71 with a pulse ox of 74. HEENT: PERRLA. EOMI. NECK: Supple. There are no bruits or jugular venous distention. HEART: Shows regular rate and rhythm. LUNGS: Clear to auscultation and percussion bilaterally. ABDOMEN: Soft and it is nontender. Bowel sounds are normoactive. NEUROLOGIC: The patient has an ecchymotic area over the right eyebrow, otherwise there are no focal neurologic deficits. LABORATORY DATA: Hemoglobin and hematocrit of 11.8 and 34.3 and 42.5% lymphocytes, which is elevated. Chemistries shows a potassium of 3.3 and creatinine of 0.6. CT of the head with and without contrast showed no acute findings. CT angiogram of the head and neck is also unremarkable. Neurology has been consulted to follow the patient. CURRENT DIAGNOSES: 1. Syncopal episode. 2. Contusion, right forehead. 3. History of chronic obstructive pulmonary disease. Freddy Alston MD
--- NOTE | 2018-03-06 03:46 | DS ---
ADMITTING DIAGNOSIS: Opioid overdose. DISCHARGE DIAGNOSIS: Opioid overdose s/p reversal with Narcan. SECONDARY DIAGNOSES: Hypertension, COPD, IDDM with diabetic neuropathy, CAD s/p PCI with stent placement, peptic ulcer disease and intracranial mass possibly representing a meningioma. CONSULTATIONS: None. PROCEDURES: None. IMAGING STUDIES: 1. Chest x-ray demonstrated no active disease. 2. CT of the head without contrast demonstrating no acute pathology. HISTORY OF PRESENT ILLNESS: The patient is a 57 year old woman with multiple medical comorbidities who was recently discharged after an admission for vasovagal syncope who presented to [facility] ED after being found unresponsive at home. The patient' s family reported that she was in her usual state of health until approximately 1 hour prior to presentation to [facility] ED when she was found to have altered mental status and syncopized. The patient was found with 2 bottles of opioid medications on her person as well as a bottle of Xanax. When she presented to [facility] ED, she received Narcan with resolution of her symptoms. The patient was subsequently admitted for continued management of opioid overdose. HOSPITAL COURSE: Upon admission to the telemetry ceballos, the patient was noted to remain afebrile and hemodynamically stable. Several hours later she became agitated and stated that she wanted to leave. She was evaluated by the house staff and was found to be awake, alert and oriented x 3. She was extensively explained the risks of signing out AMA to which she expressed her understanding but remained insistent on signing out of the hospital AMA. As such, the appropriate paperwork was filled out and the patient signed out AMA. CONDITION: Fair, improved. DISPOSITION: The patient signed out AMA. Yasmany Alston MD [facility]
== END 2018-03-04 11:31 | disposition left against medical advice (07) | DRG 918 ==
LOC: ED 02:37 → ERH 05:23 → 2RSO 07:01
PROVIDERS: ADMIT Student in an Organized Health Care Education/Training Program; ATTEND Student in an Organized Health Care Education/Training Program
DX: T40.2X1A Poisoning by other opioids, accidental (unintentional), initial encounter (principal); J44.9 Chronic obstructive pulmonary disease, unspecified; I25.10 Atherosclerotic heart disease of native coronary artery without angina pectoris; I10 Essential (primary) hypertension; E11.40 Type 2 diabetes mellitus with diabetic neuropathy, unspecified; D32.0 Benign neoplasm of cerebral meninges; F17.210 Nicotine dependence, cigarettes, uncomplicated; Z79.4 Long term (current) use of insulin; Z87.11 Personal history of peptic ulcer disease; Z95.5 Presence of coronary angioplasty implant and graft; Z79.82 Long term (current) use of aspirin

== ENCOUNTER 2018-03-26 18:24 | Observation (INO) | payer MEDICARE, MEDICAID ==
[2018-03-26] MEDS ORDERED: Albuterol-Ipratrop 3 mg / 0.5 (3 ml) UD IH STA (18:38)
[2018-03-26] MEDS ORDERED: Magnesium Sulfate 2 GM in Sodium Chloride 0.9% 100 ML IVPB ONE (18:38)
[2018-03-26] MEDS ORDERED: Albuterol 0.083% Inhal Sol (2.5 mg/3 mL) UD INH STA (18:38)
--- NOTE | 2018-03-26 18:59 | ED PDOC ---
Arrival/HPI - General Chief Complaint: Shortness Of Breath Time Seen by Provider: 03/26/18 18:37 Historian: Patient - History of Present Illness Narrative History of Present Illness (Text): 03/26/18 18:33 A 57 year old female, whose past medical history includes hypertension, COPD, diabetes, CAD, PUD, and diverticulitis, presents to the emergency department complaining of wheezing for 3-4 days. Patient believes symptom may have been caused by pollen in the air. Notes having taken Albuterol all day today, but has had no relief. Patient requests for SOLU-Medrol, believing this will be what will relieve her wheezing; as well as a Chest X-ray to rule out pneumonia. Patient denies any other complaints at this time. PMD: Dr. Alston Gypsum Roofer: Dr. Benjamin Past Medical History - Provider Review Nursing Documentation Reviewed: Yes - Infectious Disease Hx of Infectious Diseases: None - Tetanus Immunization Tetanus Immunization: Unknown - Reproductive Menopause: Yes - Cardiac Hx Angina: (chest pain) Hx Hypertension: Yes - Pulmonary Hx Asthma: Yes Hx Chronic Obstructive Pulmonary Disease (COPD): Yes - Neurological Hx Paralysis: No - HEENT Hx HEENT Disorder: No - Renal Hx Renal Disorder: No - Endocrine/Metabolic Hx Endocrine Disorders: Yes Hx Diabetes Mellitus Type 2: Yes (iddm) - Hematological/Oncological Hx Blood Transfusions: No Hx Blood Transfusion Reaction: No - Integumentary Hx Dermatological Disorder: No - Musculoskeletal/Rheumatological Hx Musculoskeletal Disorders: Yes (LUMBAR STENOSIS,C SPINE SX) - Gastrointestinal Hx Gastrointestinal Disorders: Yes Hx Diverticulitis: Yes Other/Comment: COLON POLYPS, - Genitourinary/Gynecological Hx Genitourinary Disorders: No - Psychiatric Hx Emotional Abuse: No Hx Physical Abuse: No Hx Substance Use: No - Surgical History Hx Coronary Stent: Yes (x2 2009) Hx Orthopedic Surgery: Yes (Left hip Fx) - Anesthesia Hx Anesthesia: Yes Hx Anesthesia Reactions: No Hx Malignant Hyperthermia: No - Suicidal Assessment Feels Threatened In Home Enviroment: No Family/Social History - Physician Review Nursing Documentation Reviewed: Yes Family/Social History: No Known Family HX Smoking Status: Light Smoker < 10 Cigarettes Daily Hx Alcohol Use: No Hx Substance Use: No Hx Substance Use Treatment: No Allergies/Home Meds Allergies/Adverse Reactions: Allergies MYCINS Allergy (Mild, Uncoded 03/26/18 18:31) ANAPHYLAXIS Home Medications: Home Meds Medication Instructions Recorded Confirmed busPIRone [Buspar] 10 mg PO BID 11/15/15 03/26/18 Atenolol [Tenormin] 50 mg PO QAM 02/28/16 03/26/18 Pregabalin [Lyrica] 200 mg PO BID 02/28/16 03/26/18 Levocetirizine Dihydrochloride 5 mg PO DAILY 09/16/16 03/26/18 [Xyzal] GlipiZIDE [Glipizide] 10 mg PO DAILY 10/08/16 03/26/18 Montelukast [Singulair] 10 mg PO DAILY 10/08/16 03/26/18 Review of Systems - Physician Review All systems were reviewed & negative as marked: Yes - Review of Systems Constitutional: absent: Fevers Respiratory: Wheezing. absent: SOB, Cough Cardiovascular: absent: Chest Pain Gastrointestinal: absent: Abdominal Pain, Diarrhea, Nausea, Vomiting Genitourinary Female: absent: Urine Output Changes Physical Exam Vital Signs Reviewed: Yes Vital Signs Temp Pulse Resp BP Pulse Ox 03/26/18 20:37 115 H 155/89 H 03/26/18 18:26 98.1 F 114 H 22 162/77 H 93 L Temperature: Afebrile Blood Pressure: Hypertensive Pulse: Regular Respiratory Rate: Normal Appearance: Positive for: Well-Appearing, Non-Toxic, Comfortable Pain Distress: None Mental Status: Positive for: Alert and Oriented X 3 - Systems Exam Head: Present: Atraumatic, Normocephalic Respiratory/Chest: Present: Wheezes (all pisano; musical and high-pitched in some regions) Cardiovascular: Present: Regular Rate and Rhythm, Normal S1, S2. No: Murmurs Abdomen: No: Tenderness, Distention, Peritoneal Signs Upper Extremity: Present: Normal Inspection. No: Cyanosis, Edema Lower Extremity: Present: Normal Inspection. No: Edema Neurological: Present: GCS=15, CN II-XII Intact, Speech Normal Skin: Present: Warm, Dry, Normal Color. No: Rashes Psychiatric: Present: Alert, Oriented x 3, Normal Insight, Normal Concentration Medical Decision Making ED Course and Treatment: 03/26/18 18:38 Impression: 57 year old female with wheezing. Physical exam shows wheezing present in all lung pisano, some regions musical/high-pitched. Plan: -- Chest X-ray -- Labs -- Albuterol -- Duoneb -- Magnesium Sulfate -- SOLU-Medrol -- Reassess and disposition Prior Visits: Notes and results from previous visits were reviewed. Patient was last seen in the emergency department on 03/04/2018 for unresponsiveness. Progress Notes: EKG: Ordered, reviewed, and independently interpreted the EKG. Rate : 114 BPM Rhythm : Sinus tachycardia. Interpretation : T-Wave inversion leads 2,3, AVF, V4, V5, V6, as well as AVR. Diffuse ischemia. Normal access. Comparison : No change from last EKG on 03/04/2018. 2nd ekg taken similar to first one. 03/26/18 19:45 Chest X-ray shows right lower lobe infiltrate. 03/26/18 22:02 Patient's insurance card showed physician name Dr. Romeo Garcia. However after having called Dr. Garcia, patient states her PMD is Dr. Alston. Case discussed with Dr. Alston, whom agrees to admit patient under service. - Lab Interpretations Lab Results: 03/26/18 19:25 03/26/18 19:25 Lab Results 03/26/18 19:25: Sodium 140, Potassium 3.6, Chloride 101, Carbon Dioxide 28, Anion Gap 15, BUN 7, Creatinine 0.5 L, Est GFR ( Amer) > 60, Est GFR (Non -Af Amer) > 60, Random Glucose 230 H, Calcium 9.2, Total Bilirubin 0.1 L, AST 11 L D, ALT 20, Alkaline Phosphatase 93, Lactate Dehydrogenase 378, Total Creatine Kinase 33 L, Troponin I < 0.01, NT-Pro-B Natriuret Pep 2070 H, Total Protein 6.9, Albumin 4.0, Globulin 2.9, Albumin/Globulin Ratio 1.4 03/26/18 19:25: PT 12.0, INR 1.05 03/26/18 19:25: WBC 8.6, RBC 4.72, Hgb 14.3 D, Hct 41.8, MCV 88.6, MCH 30.3, MCHC 34.2, RDW 13.4, Plt Count 260, MPV 9.7, Gran % 70.1 H, Lymph % (Auto) 20.4 L, [place] % (Auto) 7.1 H, Eos % (Auto) 2.1, Baso % (Auto) 0.3, Gran # 6.04, Lymph # (Auto) 1.8, [place] # (Auto) 0.6, Eos # (Auto) 0.2, Baso # (Auto) 0.03 I have reviewed the lab results: Yes - RAD Interpretation Radiology Orders: 03/26/18 18:38 CHEST PORTABLE [RAD] Stat - Medication Orders Current Medication Orders: Magnesium 2 gm/50 ml NS (Magnesium Sulfate 2 Gm/50 Ml Ns) 2 gm in 50 mls @ 102 mls/hr IVPB ONCE NOELLE Last Admin: 03/26/18 19:28 Dose: 102 mls/hr eMAR Start Stop Document 03/26/18 19:28 SS (Rec: 03/26/18 19:29 SS [id number]) Intravenous Solution Start Date 03/26/18 Start Time 19:28 End Date 03/26/18 End time 19:58 Total Infusion Time 30 Discontinued Medications Albuterol Sulfate (Albuterol 0.083% Inhal Awa (2.5 Mg/3 Ml) Ud) 5 mg INH STAT STA Stop: 03/26/18 18:39 Last Admin: 03/26/18 19:59 Dose: 5 mg Albuterol/Ipratropium (Duoneb 3 Mg/0.5 Mg (3 Ml) Ud) 3 ml IH STAT STA Stop: 03/26/18 18:39 Last Admin: 03/26/18 19:29 Dose: 3 ml Aspirin (Aspirin Chewable) 324 mg PO STAT STA Stop: 03/26/18 20:11 Last Admin: 03/26/18 20:33 Dose: 324 mg Magnesium Sulfate 2 gm/ Sodium (Chloride) 104 mls @ 102 mls/hr IVPB ONCE ONE Stop: 03/26/18 19:39 Ceftriaxone Sodium (Rocephin 1 Gram Ivpb) 1 gm in 100 mls @ 200 mls/hr IVPB STAT STA PRN Reason: Protocol Stop: 03/26/18 20:36 Last Admin: 03/26/18 20:37 Dose: 200 mls/hr eMAR Start Stop Document 03/26/18 20:37 SS (Rec: 03/26/18 20:37 SS [id number]) Intravenous Solution Start Date 03/26/18 Start Time 20:37 End Date 03/26/18 End time 21:07 Total Infusion Time 30 Azithromycin (Zithromax 500mg In Ns) 500 mg in 250 mls @ 167 mls/hr IVPB STAT STA PRN Reason: Protocol Stop: 03/26/18 21:36 Methylprednisolone (Solu-Medrol) 125 mg IVP STAT STA Stop: 03/26/18 18:39 Last Admin: 03/26/18 19:28 Dose: 125 mg IVP Administration Document 03/26/18 19:28 SS (Rec: 03/26/18 19:28 SS [id number]) Charges for Administration # of IVP Administrations 1 Metoprolol Tartrate (Lopressor) 5 mg IVP STAT STA Stop: 03/26/18 20:11 Last Admin: 03/26/18 20:37 Dose: 5 mg IVP Administration Document 03/26/18 20:37 SS (Rec: 03/26/18 20:37 SS [id number]) Charges for Administration # of IVP Administrations 1 MAR Pulse and Blood Pressure Document 03/26/18 20:37 SS (Rec: 03/26/18 20:37 SS [id number]) Pulse Pulse Rate (60-90) 115 Blood Pressure Blood Pressure (100/60-150/90) 155/89 Nitroglycerin (Nitro-Bid 2% Oint) 1 ea TOP STAT STA Stop: 03/26/18 20:11 Last Admin: 03/26/18 20:38 Dose: 1 ea - Scribe Statement The provider has reviewed the documentation as recorded by the Robert Armendariz Provider Scribe Attestation: All medical record entries made by the Dalilaibava were at my direction and personally dictated by me. I have reviewed the chart and agree that the record accurately reflects my personal performance of the history, physical exam, medical decision making, and the department course for this patient. I have also personally directed, reviewed, and agree with the discharge instructions and disposition. Disposition/Present on Arrival - Present on Arrival Any Indicators Present on Arrival: Yes History of DVT/PE: No History of Uncontrolled Diabetes: Yes Urinary Catheter: No History of Decub. Ulcer: No History Surgical Site Infection Following: None - Disposition Have Diagnosis and Disposition been Completed?: Yes Diagnosis: RLL pneumonia, Myocardial ischemia, Acute exacerbation of COPD with asthma Disposition: HOSPITALIZED Disposition Time: 20:38 Patient Plan: Observation Patient Problems: Current Active Problems Problem Status Onset RLL pneumonia Acute Myocardial ischemia Acute Acute exacerbation of COPD with asthma Acute Condition: FAIR
[2018-03-26] MEDS: Magnesium 2 gm/50 ml NS 2 GM/50 ML BAG IVPB SCH (19:28)
[2018-03-26 19:42] LABS: BASO # 0.03 K/mm3 (0.0-2.0); BASO % 0.3 % (0.0-3.0); EOS # 0.2 (0.0-0.7); EOS % 2.1 % (1.5-5.0); GRAN # 6.04 (1.4-6.5); GRAN % 70.1 % (50.0-68.0); HEMOGLOBIN 14.3 g/dL (12.0-16.0); LYMPH # 1.8 (1.2-3.4); LYMPH % 20.4 % (22.0-35.0); MEAN CELL VOLUME 88.6 fl (80.0-105.0); MEAN CORPUSCULAR HEMOGLOBIN 30.3 pg (25.0-35.0); MEAN CORPUSCULAR HGB CONC 34.2 g/dl (31.0-37.0); MEAN PLATELET VOLUME 9.7 fl (7.0-11.0); MONO # 0.6 (0.1-0.6); MONO % 7.1 % (1.0-6.0); RBC 4.72 10^6/uL (3.5-6.1); RED CELL DISTRIBUTION WIDTH 13.4 % (11.5-14.5); WHITE BLOOD COUNT 8.6 10^3/ul (4.5-11.0)
[2018-03-26 19:50] LABS: INR 1.05 (0.93-1.08)
[2018-03-26 20:07] LABS: ALB/GLOB RATIO 1.4 (1.1-1.8); ALT/SGPT 20 U/L (7-56); AST/SGOT 11 U/L (14-36); B-TYPE NATRIURETIC PEPTIDE 2070 pg/mL (0-450); BLOOD UREA NITROGEN 7 mg/dL (7-21); CALCIUM 9.2 mg/dL (8.4-10.5); GFR AFRICAN-AMERICAN > 60; GFR NON-AFRICAN AMERICAN > 60
[2018-03-26] MEDS ORDERED: Azithromycin 500MG/NS 250ml 500 MG/250 ML BAG IVPB STA (20:07)
[2018-03-26] MEDS ORDERED: cefTRIAXone 1 gm 1 GM/100 ML BAG IVPB STA (20:07)
[2018-03-26] MEDS ORDERED: Metoprolol 1 mg/ml Inj IVP STA (20:10)
[2018-03-26] MEDS ORDERED: Nitroglycerin 2% Ointment Foilpak UD TOP STA (20:10)
[2018-03-26 20:11] LABS: TROPONIN I < 0.01 ng/mL
[2018-03-26 21:16] LABS: VENOUS BLOOD GAS BASE EXCESS 1.8 mmol/L (0.0-2.0); VENOUS BLOOD GAS PO2 72 mm/Hg (30-55); VENOUS BLOOD PH 7.34 (7.32-7.43)
[2018-03-26] MEDS ORDERED: Albuterol-Ipratrop 3 mg / 0.5 (3 ml) UD IH PRN (22:20)
[2018-03-26] MEDS ORDERED: Albuterol-Ipratrop 3 mg / 0.5 (3 ml) UD IH SCH (22:30)
[2018-03-27] MEDS: Albuterol-Ipratrop 3 mg / 0.5 (3 ml) UD IH SCH ×6 (00:16→21:21)
[2018-03-27 06:41] LABS: GRAN # 6.57 (1.4-6.5); GRAN % 88.4 % (50.0-68.0); HEMOGLOBIN 15.8 g/dL (12.0-16.0); LYMPH # 0.7 (1.2-3.4); MEAN CORPUSCULAR HGB CONC 34.1 g/dl (31.0-37.0); MEAN PLATELET VOLUME 10.1 fl (7.0-11.0); MONO # 0.2 (0.1-0.6); MONO % 2.6 % (1.0-6.0); RBC 5.26 10^6/uL (3.5-6.1); RED CELL DISTRIBUTION WIDTH 13.4 % (11.5-14.5); WHITE BLOOD COUNT 7.4 10^3/ul (4.5-11.0)
[2018-03-27 07:10] LABS: TROPONIN I < 0.01 ng/mL
[2018-03-27 07:11] LABS: LDL CHOLESTEROL 136 mg/dL (0-129)
[2018-03-27 07:17] LABS: ALB/GLOB RATIO 1.3 (1.1-1.8); ALBUMIN 4.3 g/dL (3.0-4.8); ALT/SGPT 16 U/L (7-56); AST/SGOT 15 U/L (14-36); BLOOD UREA NITROGEN 7 mg/dL (7-21); CALCIUM 9.5 mg/dL (8.4-10.5); GFR AFRICAN-AMERICAN > 60; GFR NON-AFRICAN AMERICAN > 60; HDL CHOLESTEROL 63 mg/dL (29-60)
[2018-03-27] MEDS: MethylPREDNISolone 40 mg Vial IVP SCH ×2 (09:45→21:29)
[2018-03-27] MEDS: GlipiZIDE 10 mg SR Tab PO SCH (09:45)
--- NOTE | 2018-03-27 10:00 | RAD ---
HISTORY: Dyspnea/Wheezing COMPARISON: ; comparison chest 03/04/2018 FINDINGS: LUNGS: There are increased and coarsened appearing interstitial markings ; rule out underlying COPD or emphysema. There is a small nodular density overlying the left lateral upper most consistent with a small calcified granuloma. . PLEURA: No significant pleural effusion identified, no pneumothorax apparent. CARDIOVASCULAR: Normal. OSSEOUS STRUCTURES: 3 level ACDF plate overlying the lower cervical region unchanged VISUALIZED UPPER ABDOMEN: Normal. OTHER FINDINGS: None. IMPRESSION: There are increased and coarsened appearing interstitial markings ; rule out underlying COPD or emphysema. There is a small nodular density overlying the left lateral upper most consistent with a small calcified granuloma. .
--- NOTE | 2018-03-27 10:50 | CP.PCM.CON ---
History of Present Illness - History of Present Illness History of Present Illness: Lying in bed, awake, slight shortness of breath, denies chest pain Reason for consultation:Cardiac evaluation for shortness of breath, coronary artery disease,hypertension, COPD, Brief history of present illness: A 57 year old female who came in to the ER due to shortness of breath with wheezing for the past 3 days. She took her inhaler medications but with no relief. History of coronary artery disease with stents, hypertension, COPD, asthma,peptic ulcer disease,diverticulitis, hyperlipidemia,pneumonia,diabetes mellitus, arthritis, degenerative joint disease,anxiety,depression, current smoker Seen and examined by me and Dr. Benjamin Review of Systems - Constitutional Constitutional: As Per HPI - EENT Additional comments: denies problems - Cardiovascular Additional comments: denies chest pain - Respiratory Respiratory: Dyspnea, Wheezing - Gastrointestinal Additional comments: denies vomiting,denies nausea - Genitourinary Additional comments: continent - Musculoskeletal Additional comments: arthritis - Neurological Additional comments: denies falls - Endocrine Additional Comments: elevated glucose Past Patient History - Infectious Disease Hx of Infectious Diseases: None - Tetanus Immunizations Tetanus Immunization: Unknown - Past Social History Smoking Status: Current Some Days Smoker - CARDIAC Hx Cardiac Disorders: Yes Hx Angina: Yes Hx Hypercholesterolemia: Yes Hx Hypertension: Yes - PULMONARY Hx Respiratory Disorders: Yes Hx Asthma: Yes Hx Chronic Obstructive Pulmonary Disease (COPD): Yes Hx Pneumonia: Yes - NEUROLOGICAL Hx Paralysis: No - HEENT Hx HEENT Problems: No - RENAL Hx Chronic Kidney Disease: No - ENDOCRINE/METABOLIC Hx Diabetes Mellitus Type 2: Yes - HEMATOLOGICAL/ONCOLOGICAL Hx Blood Transfusions: No Hx Blood Transfusion Reaction: No - INTEGUMENTARY Hx Dermatological Problems: No - MUSCULOSKELETAL/RHEUMATOLOGICAL Hx Musculoskeletal Disorders: Yes Hx Arthritis: Yes Hx Degenerative Joint Disease: Yes Hx Falls: No - GASTROINTESTINAL Hx Gastrointestinal Disorders: Yes Hx Diverticulitis: Yes Other/Comment: COLON POLYPS, - GENITOURINARY/GYNECOLOGICAL Hx Genitourinary Disorders: No - PSYCHIATRIC Hx Anxiety: Yes Hx Depression: Yes Hx Substance Use: No - SURGICAL HISTORY Hx Cardiac Catheterization: Yes Hx Coronary Stent: Yes - ANESTHESIA Hx Anesthesia: Yes Hx Anesthesia Reactions: No Hx Malignant Hyperthermia: No Meds Allergies/Adverse Reactions: Allergies Allergy/AdvReac Type Severity Reaction Status Date / Time MYCINS Allergy Mild ANAPHYLAXIS Uncoded 03/26/18 18:31 - Medications Medications: Current Medications Albuterol/Ipratropium (Duoneb 3 Mg/0.5 Mg (3 Ml) Ud) 3 ml IH Q2H PRN PRN Reason: Shortness of Breath Albuterol/Ipratropium (Duoneb 3 Mg/0.5 Mg (3 Ml) Ud) 3 ml IH [id number] [facility] Last Admin: 03/27/18 07:53 Dose: 3 ml Aspirin (Aspirin Chewable) 81 mg PO DAILY [facility] Last Admin: 03/27/18 09:46 Dose: 81 mg Atenolol (Tenormin) 50 mg PO DAILY [facility] Last Admin: 03/27/18 09:46 Dose: 50 mg Glipizide (Glucotrol Xl) 10 mg PO DAILY [facility] Last Admin: 03/27/18 09:45 Dose: 10 mg Magnesium 2 gm/50 ml NS (Magnesium Sulfate 2 Gm/50 Ml Ns) 2 gm in 50 mls @ 102 mls/hr IVPB ONCE [facility] Last Admin: 03/26/18 19:28 Dose: 102 mls/hr Insulin Detemir (Levemir) 30 unit SC QPM [facility] Methylprednisolone (Solu-Medrol) 40 mg IVP Q12 [facility] Last Admin: 03/27/18 09:45 Dose: 40 mg Montelukast Sodium (Singulair) 10 mg PO DAILY [facility] Sitagliptin Phosphate (Januvia) 100 mg PO DAILY [facility] Last Admin: 03/27/18 09:45 Dose: 100 mg Physical Exam - Head Exam Head Exam: NORMOCEPHALIC - Eye Exam Eye Exam: Normal appearance - ENT Exam ENT Exam: Mucous Membranes Moist - Respiratory Exam Respiratory Exam: Wheezes Additional comments: NC 2-3 l/min, slight shortness of breath - Cardiovascular Exam Cardiovascular Exam: REGULAR RHYTHM, +S1, +S2 Additional comments: telemetry NSR - GI/Abdominal Exam GI & Abdominal Exam: Normal Bowel Sounds, Soft - Neurological Exam Neurological exam: Alert, Oriented x3 - Psychiatric Exam Psychiatric exam: Normal Affect, Normal Mood - Skin Skin Exam: Normal Color, Warm Results - Vital Signs Recent Vital Signs: Last Vital Signs Temp 98.0 F 03/27/18 06:00 Pulse 96 H 03/27/18 06:00 Resp 18 03/27/18 06:00 BP 168/86 H 03/27/18 06:00 Pulse Ox 98 05/27/18 06:00 - Labs Result Diagrams: 03/27/18 06:00 03/27/18 06:00 Labs: Laboratory Results - last 24 hr 03/26/18 03/27/18 03/27/18 20:50 06:00 06:00 WBC 7.4 RBC 5.26 Hgb 15.8 Hct 46.3 MCV 88.0 MCH 30.0 MCHC 34.1 RDW 13.4 Plt Count 287 MPV 10.1 Gran % 88.4 H Lymph % (Auto) 9.0 L Navarro % (Auto) 2.6 Eos % (Auto) 0.0 L Baso % (Auto) 0.0 Gran # 6.57 H Lymph # (Auto) 0.7 L Navarro # (Auto) 0.2 Eos # (Auto) 0.0 Baso # (Auto) 0.00 pO2 72 H VBG pH 7.34 VBG pCO2 53.0 VBG HCO3 28.6 H VBG Total CO2 30.2 H VBG O2 Sat (Calc) 97.4 H VBG Base Excess 1.8 VBG Potassium 3.8 Sodium 136.0 141 Chloride 102.0 101 Glucose 256 H Lactate 1.9 FiO2 21.0 Potassium 4.4 Carbon Dioxide 26 Anion Gap 18 BUN 7 Creatinine 0.4 L Est GFR ( Amer) > 60 Est GFR (Non-Af Amer) > 60 POC Glucose (mg/dL) Random Glucose 294 H Calcium 9.5 Total Bilirubin 0.3 AST 15 ALT 16 Alkaline Phosphatase 106 Troponin I < 0.01 Total Protein 7.6 Albumin 4.3 Globulin 3.2 Albumin/Globulin Ratio 1.3 Triglycerides 89 Cholesterol 213 H LDL Cholesterol Direct 136 H HDL Cholesterol 63 H Venous Blood Potassium 3.8 03/27/18 07:11 WBC RBC Hgb Hct MCV MCH MCHC RDW Plt Count MPV Gran % Lymph % (Auto) Navarro % (Auto) Eos % (Auto) Baso % (Auto) Gran # Lymph # (Auto) Navarro # (Auto) Eos # (Auto) Baso # (Auto) pO2 VBG pH VBG pCO2 VBG HCO3 VBG Total CO2 VBG O2 Sat (Calc) VBG Base Excess VBG Potassium Sodium Chloride Glucose Lactate FiO2 Potassium Carbon Dioxide Anion Gap BUN Creatinine Est GFR ( Amer) Est GFR (Non-Af Amer) POC Glucose (mg/dL) 247 H Random Glucose Calcium Total Bilirubin AST ALT Alkaline Phosphatase Troponin I Total Protein Albumin Globulin Albumin/Globulin Ratio Triglycerides Cholesterol LDL Cholesterol Direct HDL Cholesterol Venous Blood Potassium Assessment & Plan - Assessment and Plan (Free Text) Assessment: A 57 year old female who came in to the ER due to shortness of breath with wheezing for the past 3 days. She took her inhaler medications but with no relief. History of coronary artery disease with stents, hypertension, COPD, asthma,peptic ulcer disease,diverticulitis, hyperlipidemia,pneumonia,diabetes mellitus, arthritis, degenerative joint disease,anxiety,depression, current smoker. She was just recently hospitalized last 03/04/18 due to unresponsiveness. They found bottles of Xanax and oxycodone bedside. Narcan was administered and diagnosed for opiod overdose then went home and signed against medical advise. Review of previous cardiac work up: 05/03/17- Stress Test normal Plan: Will order ECHO to define LV function Troponin levels- normal Chest X ray showed right lower lobe infiltrate Shortness of breath and wheezing due to pneumonia IV antibiotic given in ER ( Rocephin and Azithromycin) Solumedrol given in ER On Atenolol 50 mg daily, ASA 81 mg daily Continue current medications Continue current treatment Pulmonary on consult Will follow up Thank you Dr. Alston for the opportunity to take care of Ms. Marietta Mancuso - Date & Time Date: 03/27/18 Time: 06:55
--- NOTE | 2018-03-27 17:14 | CON ---
DATE: 03/27/2018 PULMONARY CONSULTATION HISTORY OF PRESENT ILLNESS: This is a 57-year-old female admitted to [facility] (Formerly [facility]3] with diagnoses of shortness of breath and wheezing. The patient states that she developed cold symptoms and sore throat few days prior to admission and then became progressively more short of breath, coughing and wheezing. She does have multiple allergies including ALLERGY TO POLLEN, but this time she felt that the disease was prompted by cold. She was taking albuterol at home with no relief. In emergency room, she had some intravenous steroids, nebulizer treatment with improvement, and a chest x-ray that was interpreted as rule out right lower lobe pneumonia. PAST MEDICAL HISTORY: Positive for chronic obstructive pulmonary disease, coronary artery disease status post stents, angina, hypertension, pollen allergy. She also is diabetic and has a history of spinal stenosis and colonic polyps. FAMILY HISTORY: Negative for inherited diseases. SOCIAL HISTORY: The patient is a current smoker, smokes approximately half a pack a day. There is no history of alcohol or drug abuse. MEDICATIONS AT HOME: Included BuSpar, atenolol, Xyzal, glipizide, and Singulair as well as Lyrica. ALLERGIES: THERE ARE POSSIBLE ALLERGIES TO CERTAIN ANTIBIOTICS, THE PATIENT IS NOT SURE OF IT. REVIEW OF SYSTEMS: Conducted by reviewing all sources. EARS, NOSE, AND THROAT: The patient is complaining of sore throat and runny nose. PULMONARY: See history of present illness. CARDIOVASCULAR: There is no clear chest pain, but the patient has a history of coronary artery disease and stents. GASTROINTESTINAL: No history of nausea, vomiting, or diarrhea. GENITOURINARY: No dysuria or hematuria. The rest of the systems were reviewed and found to be negative. PHYSICAL EXAMINATION: GENERAL: The patient is awake, alert, in no acute distress. HEAD, EYES, EARS, NOSE, AND THROAT: Normocephalic and atraumatic. NECK: Supple with no jugular vein distentions. No adenopathy. CARDIOVASCULAR: S1, S2. No S3. Regular. No murmurs. PULMONARY: Bilateral expiratory wheezes and few rhonchi. GASTROINTESTINAL: Soft, nontender. No organomegaly. EXTREMITIES: No pedal edema. NEUROLOGIC: Limited at the present time. SKIN: Clear with no acute skin rashes. LABORATORY DATA: On admission, WBC is 8.6, hemoglobin 14.3, platelet count 260,000. Blood sugar elevated at 230, the rest is normal. Chest x-ray personally reviewed by me, clear lungs, no infiltrates, specifically there is no infiltrate in the right lower lobe to suggest pneumonia. ASSESSMENT: 1. Acute bronchitis. 2. Exacerbation of chronic obstructive pulmonary disease. 3. Abnormal electrocardiogram, rule out myocardial ischemia. 4. Known coronary artery disease, status post stents. 5. Diabetes mellitus. PLAN: I agree with current antibiotic choices with Rocephin and azithromycin. She will continue with nebulizer treatments and low-dose intravenous steroids. She is already starting to improve. Supplemental oxygen will be administered and oxygen saturation will be monitored closely. Elbert Rainey MD
[2018-03-27] MEDS: Insulin Detemir 100 units/ml Vial (Levemir) SC SCH (18:05)
[2018-03-27] MEDS: Magnesium 2 gm/50 ml NS 2 GM/50 ML BAG IVPB SCH (18:07)
[2018-03-28] MEDS: Albuterol-Ipratrop 3 mg / 0.5 (3 ml) UD IH SCH ×6 (00:45→21:41)
[2018-03-28 07:10] LABS: BASO # 0.01 K/mm3 (0.0-2.0); BASO % 0.1 % (0.0-3.0); GRAN # 11.33 (1.4-6.5); GRAN % 83.2 % (50.0-68.0); HEMOGLOBIN 16.4 g/dL (12.0-16.0); LYMPH # 1.4 (1.2-3.4); LYMPH % 10.1 % (22.0-35.0); MEAN CELL VOLUME 88.7 fl (80.0-105.0); MEAN CORPUSCULAR HEMOGLOBIN 30.3 pg (25.0-35.0); MEAN CORPUSCULAR HGB CONC 34.2 g/dl (31.0-37.0); MEAN PLATELET VOLUME 9.8 fl (7.0-11.0); MONO # 0.9 (0.1-0.6); MONO % 6.6 % (1.0-6.0); RBC 5.41 10^6/uL (3.5-6.1); RED CELL DISTRIBUTION WIDTH 13.7 % (11.5-14.5); WHITE BLOOD COUNT 13.6 10^3/ul (4.5-11.0)
[2018-03-28 07:23] LABS: ALB/GLOB RATIO 1.4 (1.1-1.8); ALBUMIN 4.5 g/dL (3.0-4.8); ALT/SGPT 21 U/L (7-56); AST/SGOT 15 U/L (14-36); BLOOD UREA NITROGEN 12 mg/dL (7-21); CALCIUM 9.9 mg/dL (8.4-10.5); GFR AFRICAN-AMERICAN > 60; GFR NON-AFRICAN AMERICAN > 60
--- NOTE | 2018-03-28 08:12 | CARD ---
APPROVED REPORT EKG Measurement Heart [id number] <Conclusion> Sinus tachycardia. T Inversions in 2,3,AVF and V Leads- Correlate Clinically.
--- NOTE | 2018-03-28 08:14 | CARD ---
APPROVED REPORT EKG Measurement Heart [id number] <Conclusion> Sinus tachycardia T wave inversions- Correlate Clinically.
--- NOTE | 2018-03-28 09:08 | CP.PCM.PN ---
Subjective - Date & Time of Evaluation Date of Evaluation: 03/28/18 Time of Evaluation: 06:35 - Subjective Subjective: Feeling better,lying in bed, awake, slight shortness of breath, denies chest pain Reason for consultation:Cardiac evaluation for shortness of breath, coronary artery disease,hypertension, COPD, Seen and examined by me and Dr. Benjamin Objective - Vital Signs/Intake and Output Vital Signs (last 24 hours): Temp Pulse Resp BP Pulse Ox 98 F 89 18 150/87 96 03/28/18 06:00 03/28/18 06:00 03/28/18 06:00 03/28/18 06:00 03/28/18 06:00 Intake and Output: 03/28/18 03/28/18 06:59 18:59 Intake Total 100 Output Total 0 Balance 100 - Medications Medications: Current Medications Albuterol/Ipratropium (Duoneb 3 Mg/0.5 Mg (3 Ml) Ud) 3 ml IH Q2H PRN PRN Reason: Shortness of Breath Albuterol/Ipratropium (Duoneb 3 Mg/0.5 Mg (3 Ml) Ud) 3 ml IH [id number] [facility] Last Admin: 03/28/18 07:23 Dose: 3 ml Aspirin (Aspirin Chewable) 81 mg PO DAILY [facility] Last Admin: 03/27/18 09:46 Dose: 81 mg Atenolol (Tenormin) 50 mg PO DAILY [facility] Last Admin: 03/27/18 09:46 Dose: 50 mg Glipizide (Glucotrol Xl) 10 mg PO DAILY [facility] Last Admin: 03/27/18 09:45 Dose: 10 mg Magnesium 2 gm/50 ml NS (Magnesium Sulfate 2 Gm/50 Ml Ns) 2 gm in 50 mls @ 102 mls/hr IVPB ONCE [facility] Last Admin: 03/27/18 18:07 Dose: 102 mls/hr Insulin Detemir (Levemir) 30 unit SC QPM [facility] Last Admin: 03/27/18 18:05 Dose: 30 unit Methylprednisolone (Solu-Medrol) 40 mg IVP Q12 [facility] Last Admin: 03/27/18 21:29 Dose: 40 mg Montelukast Sodium (Singulair) 10 mg PO DAILY [facility] Last Admin: 03/27/18 09:45 Dose: 10 mg Sitagliptin Phosphate (Januvia) 100 mg PO DAILY [facility] Last Admin: 03/27/18 09:45 Dose: 100 mg - Labs Labs: 03/28/18 06:15 03/28/18 06:15 PT 12.0 SECONDS (9.4-12.5) 03/26/18 19:25 INR 1.05 (0.93-1.08) 03/26/18 19:25 - Constitutional Appears: No Acute Distress - Eye Exam Eye Exam: Normal appearance - ENT Exam ENT Exam: Mucous Membranes Moist - Respiratory Exam Respiratory Exam: Decreased Breath Sounds, Wheezes Additional comments: slight shortness of breath nasal cannula - Cardiovascular Exam Cardiovascular Exam: +S1, +S2 - GI/Abdominal Exam GI & Abdominal Exam: Soft, Normal Bowel Sounds - Extremities Exam Extremities Exam: Normal Capillary Refill - Neurological Exam Neurological Exam: Alert, Awake, Oriented x3 - Psychiatric Exam Psychiatric exam: Normal Affect, Normal Mood - Skin Skin Exam: Intact, Normal Color, Warm Assessment and Plan - Assessment and Plan (Free Text) Assessment: A 57 year old female who came in to the ER due to shortness of breath with wheezing for the past 3 days. She took her inhaler medications but with no relief. History of coronary artery disease with stents, hypertension, COPD, asthma,peptic ulcer disease,diverticulitis, hyperlipidemia,pneumonia,diabetes mellitus, arthritis, degenerative joint disease,anxiety,depression, current smoker. She was just recently hospitalized last 03/04/18 due to unresponsiveness. They found bottles of Xanax and oxycodone bedside. Narcan was administered and diagnosed for opiod overdose then went home and signed against medical advise. Plan: ECHO to evaluate LV function Troponin levels- normal EKG sinus tachycardia with T wave inversion Rule out myocardial ischemia Pulmonary on consult Exacerbation of COPD On Atenolol 50 mg daily, ASA 81 mg daily SBP 150's will increase Atenolol to 100 mg daily Continue current medications Continue current treatment Will follow up Plan and treatment discussed with Dr. Benjamin
--- NOTE | 2018-03-28 09:46 | CARD ---
APPROVED REPORT EKG Measurement Heart [id number] [id number] <Conclusion> Normal sinus rhythm T wave abnormality, consider inferior ischemia T wave abnormality, consider anterolateral ischemia Prolonged QT Abnormal ECG
[2018-03-28] MEDS: GlipiZIDE 10 mg SR Tab PO SCH (09:55)
[2018-03-28] MEDS: MethylPREDNISolone 40 mg Vial IVP SCH (09:55)
[2018-03-28] MEDS ORDERED: MethylPREDNISolone 40 mg Vial IVP SCH (12:37)
--- NOTE | 2018-03-28 14:18 | PN ---
SUBJECTIVE: The patient was seen and examined at bedside on the telemetry ceballos. No acute events overnight. She remains afebrile, hemodynamically stable and chest pain free. She reports continued improvement in her respiratory status but does not yet feel at her baseline and otherwise offers no complaints. PHYSICAL EXAMINATION VITAL SIGNS: Temperature 98.2, pulse 89, blood pressure 124/84, respiratory rate 18, oxygen saturation 96% on 2 liters nasal cannula. GENERAL: No apparent distress. HEENT: PERRL. EOMI. No scleral icterus. No conjunctival pallor. NECK: No JVD. No bruits. LUNGS: Faint scattered wheeze. CARDIOVASCULAR: Regular rate and rhythm. Normal S1 and S2. ABDOMEN: Normoactive bowel sounds. Soft, nontender, nondistended. EXTREMITIES: No edema. NEUROLOGIC: Awake, alert and oriented x 3. No focal motor deficits. LABORATORY DATA: WBC 13.6 with 83% neutrophils, hemoglobin 16, hematocrit 48, platelets 376. Chemistry reviewed and unremarkable. ASSESSMENT: The patient is a 57 year old woman with multiple medical comorbidities including COPD, CAD s/p PCI with stent placement and hypertension who presented for evaluation of a 3 day history of progressively worsening chest tightness and dyspnea and who was admitted for COPD exacerbation. PLAN: 1. COPD exacerbation. Input from Dr. Corley noted and appreciated. Continue with supplemental oxygen, bronchodilators and IV steroids to taper. Continue Doxycycline 100 mg p.o. every 12 hours. 2. CAD s/p PCI with stent placement. No evidence of acute coronary syndrome. Continue Aspirin 81 mg p.o. daily and Atenolol 100 mg p.o. daily. The patient declines statin due to history of myopathy. 3. IDDM with diabetic neuropathy. Continue Glipizide 10 mg p.o. daily, Januvia 100 mg p.o. daily and Levemir 30 units SC every evening. Continue medium dose insulin sliding scale for coverage of monitoring fingerstick before every meals and at bedtime. 4. Hypertension. Continue Atenolol 100 mg p.o. daily. 5. Peptic ulcer disease. 6. Prophylaxis. GI prophylaxis is not indicated as the patient is eating. DVT prophylaxis is not indicated as the patient is ambulatory. CODE STATUS: Full code. Yasmany Alston MD [facility]
--- NOTE | 2018-03-28 15:15 | PN ---
DATE: 03/28/2018 PULMONARY PROGRESS NOTE SUBJECTIVE: The patient was seen and examined at bedside. She reports feeling better. She is receiving inhalation treatment with DuoNeb and she is also on Solu-Medrol 40 mg every 12 hours. PHYSICAL EXAMINATION: VITAL SIGNS: As follows; temperature 98, pulse 84, respirations 18, pulse oximetry is 96% on nasal cannula, blood pressure 124/84. HEENT: Examination of head, eyes, ears, nose and throat is within normal limits. NECK: Supple with no jugular vein distentions. CARDIOVASCULAR: Symmetric. S1 and S2. No murmurs. PULMONARY: Diminished breath sounds bilaterally with coarse rhonchi and several expiratory wheezes. GASTROINTESTINAL: Soft, nontender. No organomegaly. EXTREMITIES: No pedal edema. No cyanosis. SKIN: No acute skin rash. NEUROLOGIC: No focal deficits. LABORATORY DATA: Reviewed laboratory data. Chemistries are normal except for elevation of blood sugar. Mild elevation of WBC to 13.6, hemoglobin of 16.4. ASSESSMENT: 1. Acute bronchitis. 2. Exacerbation of chronic obstructive pulmonary disease. 3. Abnormal electrocardiogram, rule out myocardial ischemia. 4. Known coronary artery disease, status post stenting. 5. Diabetes mellitus. PLAN: Patient's CBC is normal except for mild elevation of WBCs. She is already on antibiotics, agree with choice of antibiotics. She will remain on current dose of intravenous steroids for another 24 hours and then it can be decreased and switched to oral. Supplemental oxygen and nebulizer treatments will continue. Elbert Rainey MD
[2018-03-28] MEDS: Insulin Detemir 100 units/ml Vial (Levemir) SC SCH (18:03)
[2018-03-28] MEDS: Magnesium 2 gm/50 ml NS 2 GM/50 ML BAG IVPB SCH (18:03)
[2018-03-29 01:13] VITALS: RESP 20; O2SAT 97
[2018-03-29] MEDS: Albuterol-Ipratrop 3 mg / 0.5 (3 ml) UD IH SCH ×3 (01:26→07:49)
[2018-03-29 05:52] VITALS: BP 141/69; PULSE 74; TEMP 97.8
--- NOTE | 2018-03-29 06:31 | CP.PCM.PN ---
Subjective - Date & Time of Evaluation Date of Evaluation: 03/29/18 Time of Evaluation: 06:27 - Subjective Subjective: Seen at bed side for nausea, abdominal pain. Has little shortness of breath. Abdominal pain is mild, no radiation, also has lower back pain, all for 2 days. No other complaints. Medical record was reviewed. This 57 year old white woman was admitted after was found being unresponsive , syncope , by family members. Has PMH of COPD, obesity, HTN, DM, obesity , PUD, gastritis. Objective - Vital Signs/Intake and Output Vital Signs (last 24 hours): Temp Pulse Resp BP Pulse Ox 97.8 F 74 20 141/69 97 03/29/18 05:51 03/29/18 05:51 03/29/18 05:51 03/29/18 05:51 03/29/18 05:51 Intake and Output: 03/28/18 03/29/18 18:59 06:59 Intake Total 1057 Output Total 0 Balance 1057 - Medications Medications: Current Medications Albuterol/Ipratropium (Duoneb 3 Mg/0.5 Mg (3 Ml) Ud) 3 ml IH Q2H PRN PRN Reason: Shortness of Breath Albuterol/Ipratropium (Duoneb 3 Mg/0.5 Mg (3 Ml) Ud) 3 ml IH [id number] [facility] Last Admin: 03/29/18 04:51 Dose: 3 ml Aspirin (Aspirin Chewable) 81 mg PO DAILY [facility] Last Admin: 03/28/18 09:55 Dose: 81 mg Atenolol (Tenormin) 100 mg PO DAILY [facility] Doxycycline Hyclate (Doryx) 100 mg PO Q12 [facility] PRN Reason: Protocol Last Admin: 03/28/18 22:09 Dose: 100 mg Glipizide (Glucotrol Xl) 10 mg PO DAILY [facility] Last Admin: 03/28/18 09:55 Dose: 10 mg Magnesium 2 gm/50 ml NS (Magnesium Sulfate 2 Gm/50 Ml Ns) 2 gm in 50 mls @ 102 mls/hr IVPB ONCE [facility] Last Admin: 03/28/18 18:03 Dose: 102 mls/hr Insulin Detemir (Levemir) 30 unit SC QPM [facility] Last Admin: 03/28/18 18:03 Dose: 30 unit Methylprednisolone (Solu-Medrol) 30 mg IVP Q12 [facility] Last Admin: 03/28/18 22:10 Dose: 30 mg Montelukast Sodium (Singulair) 10 mg PO DAILY [facility] Last Admin: 03/28/18 09:55 Dose: 10 mg Sitagliptin Phosphate (Januvia) 100 mg PO DAILY [facility] Last Admin: 03/28/18 09:54 Dose: 100 mg - Labs Labs: 03/28/18 06:15 03/28/18 06:15 PT 12.0 SECONDS (9.4-12.5) 03/26/18 19:25 INR 1.05 (0.93-1.08) 03/26/18 19:25 Micro Results 03/26/18 20:50 Blood-Venous Blood Culture - Preliminary NO GROWTH AFTER 48 HOURS 03/26/18 20:10 Blood-Venous Blood Culture - Preliminary NO GROWTH AFTER 48 HOURS Most Recent Lab Values WBC 13.6 10^3/ul (4.5-11.0) H D 03/28/18 06:15 RBC 5.41 10^6/uL (3.5-6.1) 03/28/18 06:15 Hgb 16.4 g/dL (12.0-16.0) H 03/28/18 06:15 Hct 48.0 % (36.0-48.0) 03/28/18 06:15 MCV 88.7 fl (80.0-105.0) 03/28/18 06:15 MCH 30.3 pg (25.0-35.0) 03/28/18 06:15 MCHC 34.2 g/dl (31.0-37.0) 03/28/18 06:15 RDW 13.7 % (11.5-14.5) 03/28/18 06:15 Plt Count 376 10^3/uL (120.0-450.0) 03/28/18 06:15 MPV 9.8 fl (7.0-11.0) 03/28/18 06:15 Gran % 83.2 % (50.0-68.0) H 03/28/18 06:15 Lymph % (Auto) 10.1 % (22.0-35.0) L 03/28/18 06:15 Garrett % (Auto) 6.6 % (1.0-6.0) H 03/28/18 06:15 Eos % (Auto) 0.0 % (1.5-5.0) L 03/28/18 06:15 Baso % (Auto) 0.1 % (0.0-3.0) 03/28/18 06:15 Gran # 11.33 (1.4-6.5) H 03/28/18 06:15 Lymph # (Auto) 1.4 (1.2-3.4) 03/28/18 06:15 Garrett # (Auto) 0.9 (0.1-0.6) H 03/28/18 06:15 Eos # (Auto) 0.0 (0.0-0.7) 03/28/18 06:15 Baso # (Auto) 0.01 K/mm3 (0.0-2.0) 03/28/18 06:15 PT 12.0 SECONDS (9.4-12.5) 03/26/18 19:25 INR 1.05 (0.93-1.08) 03/26/18 19:25 pO2 72 mm/Hg (30-55) H 03/26/18 20:50 VBG pH 7.34 (7.32-7.43) 03/26/18 20:50 VBG pCO2 53.0 (40-60) 03/26/18 20:50 VBG HCO3 28.6 mmol/l (21-28) H 03/26/18 20:50 VBG Total CO2 30.2 mmol.L (22-28) H 03/26/18 20:50 VBG O2 Sat (Calc) 97.4 % (40-65) H 03/26/18 20:50 VBG Base Excess 1.8 mmol/L (0.0-2.0) 03/26/18 20:50 VBG Potassium 3.8 mmol/L (3.6-5.2) 03/26/18 20:50 Sodium 136.0 mmol/L (132-148) 03/26/18 20:50 Chloride 102.0 mmol/L (98-107) 03/26/18 20:50 Glucose 256 mg/dl (65-105) H 03/26/18 20:50 Lactate 1.9 mmol/L (0.7-2.1) 03/26/18 20:50 FiO2 21.0 % 05/26/18 20:50 Sodium 142 mmol/L (132-148) 03/28/18 06:15 Potassium 4.3 mmol/L (3.6-5.0) 03/28/18 06:15 Chloride 102 mmol/L (98-107) 03/28/18 06:15 Carbon Dioxide 25 mmol/L (21-33) 03/28/18 06:15 Anion Gap 19 (10-20) 03/28/18 06:15 BUN 12 mg/dL (7-21) 03/28/18 06:15 Creatinine 0.5 mg/dl (0.7-1.2) L 03/28/18 06:15 Est GFR ( Amer) > 60 03/28/18 06:15 Est GFR (Non-Af Amer) > 60 03/28/18 06:15 POC Glucose (mg/dL) 186 mg/dL (65-110) H 03/28/18 21:52 Random Glucose 261 mg/dL (70-110) H 03/28/18 06:15 Calcium 9.9 mg/dL (8.4-10.5) 03/28/18 06:15 Total Bilirubin 0.4 mg/dL (0.2-1.3) 03/28/18 06:15 AST 15 U/L (14-36) 03/28/18 06:15 ALT 21 U/L (7-56) 03/28/18 06:15 Alkaline Phosphatase 98 U/L (38-126) 03/28/18 06:15 Lactate Dehydrogenase 378 U/L (333-699) 03/26/18 19:25 Total Creatine Kinase 33 U/L (35-230) L 03/26/18 19:25 Troponin I < 0.01 ng/mL 03/27/18 06:00 NT-Pro-B Natriuret Pep 2070 pg/mL (0-450) H 03/26/18 19:25 Total Protein 7.8 g/dL (5.8-8.3) 03/28/18 06:15 Albumin 4.5 g/dL (3.0-4.8) 03/28/18 06:15 Globulin 3.3 gm/dL 03/28/18 06:15 Albumin/Globulin Ratio 1.4 (1.1-1.8) 03/28/18 06:15 Triglycerides 89 mg/dL (35-160) 03/27/18 06:00 Cholesterol 213 mg/dL (130-200) H 03/27/18 06:00 LDL Cholesterol Direct 136 mg/dL (0-129) H 03/27/18 06:00 HDL Cholesterol 63 mg/dL (29-60) H 03/27/18 06:00 Venous Blood Potassium 3.8 mmol/L (3.6-5.2) 03/26/18 20:50 - Constitutional Appears: Well, No Acute Distress - Head Exam Head Exam: ATRAUMATIC, NORMAL INSPECTION, NORMOCEPHALIC - Eye Exam Eye Exam: Normal appearance - ENT Exam ENT Exam: Normal External Ear Exam - Neck Exam Neck Exam: Normal Inspection - Respiratory Exam Respiratory Exam: NORMAL BREATHING PATTERN. absent: Accessory Muscle Use, Rales , Rhonchi, Wheezes, Respiratory Distress, Stridor - Cardiovascular Exam Cardiovascular Exam: REGULAR RHYTHM, +S1 (Normal.), +S2 (Normal.). absent: JVD - GI/Abdominal Exam GI & Abdominal Exam: Soft, Normal Bowel Sounds. absent: Distended, Firm, Guarding, Rigid, Tenderness, Hernia, Mass, Organomegaly, Pulsatile Mass, Rebound - Rectal Exam Rectal Exam: Deferred - Exam Additional comments: Deferred. - Extremities Exam Extremities Exam: Normal Inspection - Back Exam Back Exam: NORMAL INSPECTION - Neurological Exam Neurological Exam: Alert, Awake, Oriented x3 - Psychiatric Exam Psychiatric exam: Normal Affect, Normal Mood - Skin Skin Exam: Normal Color Assessment and Plan - Assessment and Plan (Free Text) Assessment: Nausea. Abdominal pain-periumbilical. Gastroparesis. PUD Gastritis- on steroid. R/O cardiac aetiology. DM. HTN. COPD. CAD. History of coronary stent placement x 2. Leukocytosis. Obesity. Plan: Protonix 40 mg PO x 1. Zofran 4 mg Iv x 1. EKG.-------------> NSR, anterior , inferior ischemic changes same as previous EKG except that changes(Inverted T's) are more pronounced in inferior lead. Troponin. Continue present management.
[2018-03-29 07:02] LABS: GRAN # 8.41 (1.4-6.5); GRAN % 77.2 % (50.0-68.0); HEMOGLOBIN 17.6 g/dL (12.0-16.0); LYMPH # 1.7 (1.2-3.4); LYMPH % 15.6 % (22.0-35.0); MEAN CELL VOLUME 86.8 fl (80.0-105.0); MEAN CORPUSCULAR HEMOGLOBIN 29.8 pg (25.0-35.0); MEAN CORPUSCULAR HGB CONC 34.4 g/dl (31.0-37.0); MONO # 0.8 (0.1-0.6); MONO % 7.2 % (1.0-6.0); RBC 5.9 10^6/uL (3.5-6.1); RED CELL DISTRIBUTION WIDTH 13.4 % (11.5-14.5); WHITE BLOOD COUNT 10.9 10^3/ul (4.5-11.0)
[2018-03-29 07:15] LABS: ALB/GLOB RATIO 1.4 (1.1-1.8); ALBUMIN 4.7 g/dL (3.0-4.8); ALT/SGPT 22 U/L (7-56); AST/SGOT 15 U/L (14-36); BLOOD UREA NITROGEN 12 mg/dL (7-21); CALCIUM 9.8 mg/dL (8.4-10.5); GFR AFRICAN-AMERICAN > 60; GFR NON-AFRICAN AMERICAN > 60
[2018-03-29 07:22] LABS: TROPONIN I < 0.01 ng/mL
--- NOTE | 2018-03-29 07:23 | CP.PCM.PN ---
Subjective - Date & Time of Evaluation Date of Evaluation: 03/29/18 Time of Evaluation: 06:30 - Subjective Subjective: Nauseaus,lying in bed, awake, denies chest pain Reason for consultation:Cardiac evaluation for shortness of breath, coronary artery disease,hypertension, COPD, Seen and examined by me and Dr. Vidales Objective - Vital Signs/Intake and Output Vital Signs (last 24 hours): Temp Pulse Resp BP Pulse Ox 97.8 F 74 20 141/69 97 03/29/18 05:51 03/29/18 05:51 03/29/18 05:51 03/29/18 05:51 03/29/18 05:51 Intake and Output: 03/29/18 03/29/18 06:59 18:59 Intake Total 1057 Output Total 0 Balance 1057 - Medications Medications: Current Medications Albuterol/Ipratropium (Duoneb 3 Mg/0.5 Mg (3 Ml) Ud) 3 ml IH Q2H PRN PRN Reason: Shortness of Breath Albuterol/Ipratropium (Duoneb 3 Mg/0.5 Mg (3 Ml) Ud) 3 ml IH [id number] [facility] Last Admin: 03/29/18 04:51 Dose: 3 ml Aspirin (Aspirin Chewable) 81 mg PO DAILY [facility] Last Admin: 03/28/18 09:55 Dose: 81 mg Atenolol (Tenormin) 100 mg PO DAILY [facility] Doxycycline Hyclate (Doryx) 100 mg PO Q12 [facility] PRN Reason: Protocol Last Admin: 03/28/18 22:09 Dose: 100 mg Glipizide (Glucotrol Xl) 10 mg PO DAILY [facility] Last Admin: 03/28/18 09:55 Dose: 10 mg Magnesium 2 gm/50 ml NS (Magnesium Sulfate 2 Gm/50 Ml Ns) 2 gm in 50 mls @ 102 mls/hr IVPB ONCE [facility] Last Admin: 03/28/18 18:03 Dose: 102 mls/hr Insulin Detemir (Levemir) 30 unit SC QPM [facility] Last Admin: 03/28/18 18:03 Dose: 30 unit Methylprednisolone (Solu-Medrol) 30 mg IVP Q12 [facility] Last Admin: 03/28/18 22:10 Dose: 30 mg Montelukast Sodium (Singulair) 10 mg PO DAILY [facility] Last Admin: 03/28/18 09:55 Dose: 10 mg Sitagliptin Phosphate (Januvia) 100 mg PO DAILY [facility] Last Admin: 03/28/18 09:54 Dose: 100 mg - Labs Labs: 03/28/18 06:15 03/29/18 06:30 PT 12.0 SECONDS (9.4-12.5) 03/26/18 19:25 INR 1.05 (0.93-1.08) 03/26/18 19:25 - Constitutional Appears: No Acute Distress - Head Exam Head Exam: NORMOCEPHALIC - Eye Exam Eye Exam: Normal appearance - ENT Exam ENT Exam: Mucous Membranes Moist - Respiratory Exam Respiratory Exam: Decreased Breath Sounds Additional comments: slight shortness of breath Nasal cannula - Cardiovascular Exam Cardiovascular Exam: REGULAR RHYTHM, +S1, +S2 Additional comments: Telemetry NSR - GI/Abdominal Exam GI & Abdominal Exam: Soft, Normal Bowel Sounds Additional comments: Nausea, no vomiting had bowel movement yesterday - Extremities Exam Extremities Exam: Normal Capillary Refill - Neurological Exam Neurological Exam: Alert, Awake, Oriented x3 - Psychiatric Exam Psychiatric exam: Normal Affect, Normal Mood - Skin Skin Exam: Intact, Normal Color, Warm Assessment and Plan - Assessment and Plan (Free Text) Assessment: A 57 year old female who came in to the ER due to shortness of breath with wheezing for the past 3 days. She took her inhaler medications but with no relief. History of coronary artery disease with stents, hypertension, COPD, asthma,peptic ulcer disease,diverticulitis, hyperlipidemia,pneumonia,diabetes mellitus, arthritis, degenerative joint disease,anxiety,depression, current smoker. She was just recently hospitalized last 03/04/18 due to unresponsiveness. They found bottles of Xanax and oxycodone bedside. Narcan was administered and diagnosed for opiod overdose then went home and signed against medical advise. Plan: Nausea today, claimed did not eat yesterday Zofran and Protonix given as ordered ECHO to evaluate LV function Pulmonary on consult Exacerbation of COPD On Atenolol 100 mg daily, ASA 81 mg daily Continue current medications Continue current treatment Will follow up Plan and treatment discussed with Dr. Vidales
--- NOTE | 2018-03-29 09:01 | HP ---
DATE OF EXAM: 03/26/2018 HISTORY OF PRESENT ILLNESS: The patient is a 57-year-old female who came to the ER due to increasing shortness of breath with some wheezing during the past 3 days. She has been using her inhaler with no relief. PAST MEDICAL HISTORY: Remarkable for coronary artery disease with two stents, hypertension, COPD, asthma, peptic ulcer disease, hyperlipidemia, pneumonia, diabetes, degenerative joint disease, anxiety, and depression. The patient is a current smoker. SOCIAL HISTORY: As previously stated, the patient is a current smoker. Does not use alcohol. ALLERGIES: ARE MYCINS. PHYSICAL EXAMINATION: VITAL SIGNS: Her temperature is 98, pulse rate of 89, blood pressure 149/98, respiratory rate of 18. HEENT: PERRLA, EOMI. NECK: Supple with full range of motion. There is no jugular venous distention or bruits present. LUNGS: Minimal scattered wheeze, otherwise clear. HEART: Regular rate and rhythm. No murmurs, rubs, or gallops. ABDOMEN: Soft. It is nontender, bowel sounds are normoactive. NEUROLOGICALLY: The patient is intact. LAB VALUES: WBC is 7.4, hemoglobin and hematocrit of 15.8 and 46.3. Chemistry is essentially normal with the exception of a random glucose of 230. Troponins are negative x2. IMPRESSION: At this time is exacerbation of chronic obstructive pulmonary disease, bronchitis, diabetes. We will consult Dr. Cerda for Pulmonary Diseases and Dr. Benjamin of Cardiology. Repeat labs in a.m. and continue treatment as indicated by the labs. Freddy Alston MD
--- NOTE | 2018-03-29 12:31 | PN ---
SUBJECTIVE: The patient was seen and examined at bedside on the telemetry ceballos. No acute events overnight. She remains afebrile and hemodynamically stable. This morning she reports resolution of her respiratory symptoms and states she is at her baseline. OBJECTIVE: VITAL SIGNS: Temperature 97.8, pulse 74, blood pressure 141/69, respiratory rate 20, oxygen saturation 98% on 2 liters nasal cannula. GENERAL: No apparent distress. HEENT: PERRL. EOMI. No scleral icterus. No conjunctival pallor. NECK: No JVD. CARDIOVASCULAR: Regular rate and rhythm. Normal S1 and S2. LUNGS: Faint scattered wheeze. ABDOMEN: Normoactive bowel sounds. Soft, nontender, nondistended. EXTREMITIES: No edema. NEUROLOGIC: Awake, alert and oriented x 3. No focal motor deficits. LABORATORY DATA: CBC reviewed and unremarkable. CMP reviewed and unremarkable. ASSESSMENT: The patient is a 57 year old woman with multiple medical comorbidities including COPD, CAD s/p stents and hypertension who presented with a 3 day history of progressively worsening chest tightness and dyspnea and who was admitted for COPD exacerbation. PLAN: 1. COPD exacerbation, resolved. The patient will complete a course of steroids to taper and 7-day course of antibiotics upon discharge. 2. CAD s/p PCI with stent placement. Continue Aspirin 81 mg p.o. daily and Atenolol 100 mg p.o. daily. The patient declines statin due to history of myopathy. 3. IDDM with diabetic neuropathy. Continue Glipizide 10 mg p.o. daily, Januvia 100 mg p.o. daily and Levemir 30 units SC at bedtime. 4. Hypertension. Continue Atenolol 100 mg p.o. daily. 5. Peptic ulcer disease. 6. Prophylaxis. GI prophylaxis not indicated as the patient is eating. DVT prophylaxis not indicated as the patient is ambulatory. CODE STATUS: Full code. Yasmany Alston MD [email or web address]
--- NOTE | 2018-03-29 14:26 | CARD ---
APPROVED REPORT EKG Measurement Heart [id number] <Conclusion> Normal sinus rhythm Marked T wave abnormality, consider anterolateral ischemia Prolonged QT Abnormal ECG
== END 2018-03-29 09:29 | disposition home or self-care (01) ==
LOC: ED 18:24 → ERH 20:39 → 2RSO 23:57
PROVIDERS: ADMIT Family Medicine; ATTEND Student in an Organized Health Care Education/Training Program
DX: J44.1 Chronic obstructive pulmonary disease with (acute) exacerbation (principal); I25.10 Atherosclerotic heart disease of native coronary artery without angina pectoris; I10 Essential (primary) hypertension; E78.00 Pure hypercholesterolemia, unspecified; F41.9 Anxiety disorder, unspecified; J20.9 Acute bronchitis, unspecified; J44.0 Chronic obstructive pulmonary disease with (acute) lower respiratory infection; K27.9 Peptic ulcer, site unspecified, unspecified as acute or chronic, without hemorrhage or perforation; K29.70 Gastritis, unspecified, without bleeding; E66.9 Obesity, unspecified; E11.43 Type 2 diabetes mellitus with diabetic autonomic (poly)neuropathy; K31.84 Gastroparesis; Z79.4 Long term (current) use of insulin; E78.5 Hyperlipidemia, unspecified; F17.210 Nicotine dependence, cigarettes, uncomplicated; Z86.010 Personal history of colon polyps; Z95.5 Presence of coronary angioplasty implant and graft
CPT/HCPCS: 36415; 71045; 80053; 80061; 82550; 82803; 82948; 83615; 83880; 84484; 85025; 85610; 87040; 93005; 94640; 94760; 96365; 96366; 96367; 96375; 96376; 99285; C9113; G0378; J0696; J2405; J2920; J2930; J3475

== ENCOUNTER 2018-04-07 16:52 | Inpatient (IN) | payer MEDICARE, MEDICAID ==
[2018-04-07 16:58] VITALS: BMI 26.0
[2018-04-07] MEDS ORDERED: Eptifibatide 20 mg/10mL Inj IVP STA (17:00)
[2018-04-07] MEDS ORDERED: Nitroglycerin 2% Ointment Foilpak UD TOP ONE (17:02)
[2018-04-07] MEDS ORDERED: Eptifibatide 20 mg/10mL Inj IVP ONE ×2 (17:04→17:26)
[2018-04-07] MEDS ORDERED: Metoprolol 1 mg/ml Inj IVP STA (17:05)
[2018-04-07] MEDS ORDERED: Lidocaine 2% Inj (20ml) ONE (17:05)
[2018-04-07] MEDS ORDERED: Midazolam 2 MG/2 ML VIAL ONE (17:06)
[2018-04-07] MEDS ORDERED: Verapamil 2 ML ONE (17:06)
[2018-04-07] MEDS ORDERED: Nitroglycerin 50mg in D5W 0 MG/0 ML BOTTLE IV ONE (17:07)
[2018-04-07] MEDS ORDERED: Phenylephrine 10 mg/ml Inj ONE (17:08)
[2018-04-07] MEDS ORDERED: Iodixanol 320 MG/ML 100 ML BOTTLE IV ONE (17:08)
[2018-04-07] MEDS ORDERED: Iodixanol 320 MG/ML 200 ML BOTTLE IV ONE (17:08)
[2018-04-07] MEDS ORDERED: Iohexol 350mgl/ml 50 ML ONE (17:08)
[2018-04-07] MEDS ORDERED: Heparin25000 units/250ml 1/2NS 25,000 UNITS/250 ML BAG IV ONE (17:09)
--- NOTE | 2018-04-07 17:16 | ED PDOC ---
Arrival/HPI - General Chief Complaint: Chest Pain Time Seen by Provider: 04/07/18 16:59 Historian: Patient - History of Present Illness Narrative History of Present Illness (Text): 04/07/18 17:12 57 year old female smoker, whose past medical history includes hypertension, COPD, and CAD, who presents to the emergency department via EMS. Patient notes she ate dinner then experienced a sudden onset of substernal chest pain radiating to the neck and shoulders, sweats, and shortness of breath. EMS reports what they thought to be a STEMI in the field. Emergency department's EKG shows a STEMI on the anterior wall. Patient denies any fever, nausea, vomiting, diarrhea, back pain, neck pain, headache, dizziness, or any other complaints. Time/Duration: Prior to Arrival Symptom Onset: Sudden Symptom Course: Unchanged Activities at Onset: Eating Context: Home Past Medical History - Provider Review Nursing Documentation Reviewed: Yes - Infectious Disease Hx of Infectious Diseases: None - Tetanus Immunization Tetanus Immunization: Unknown - Cardiac Hx Cardiac Disorders: Yes Hx Angina: Yes Hx Hypertension: Yes - Pulmonary Hx Respiratory Disorders: Yes Hx Asthma: Yes Hx Chronic Obstructive Pulmonary Disease (COPD): Yes Hx Pneumonia: Yes - Neurological Hx Paralysis: No - HEENT Hx HEENT Disorder: No - Renal Hx Renal Disorder: No - Endocrine/Metabolic Hx Diabetes Mellitus Type 2: Yes - Hematological/Oncological Hx Blood Transfusions: No Hx Blood Transfusion Reaction: No - Integumentary Hx Dermatological Disorder: No - Musculoskeletal/Rheumatological Hx Musculoskeletal Disorders: Yes Hx Arthritis: Yes Hx Degenerative Joint Disease: Yes Hx Falls: No - Gastrointestinal Hx Gastrointestinal Disorders: Yes Hx Diverticulitis: Yes Other/Comment: COLON POLYPS, - Genitourinary/Gynecological Hx Genitourinary Disorders: No - Psychiatric Hx Anxiety: Yes Hx Depression: Yes Hx Substance Use: No - Surgical History Hx Cardiac Catheterization: Yes Hx Coronary Stent: Yes - Anesthesia Hx Anesthesia: Yes Hx Anesthesia Reactions: No Hx Malignant Hyperthermia: No - Suicidal Assessment Feels Threatened In Home Enviroment: No Family/Social History - Physician Review Nursing Documentation Reviewed: Yes Family/Social History: Unknown Family HX Smoking Status: Light Smoker < 10 Cigarettes Daily Hx Alcohol Use: No Hx Substance Use: No Hx Substance Use Treatment: No Allergies/Home Meds Allergies/Adverse Reactions: Allergies MYCINS Allergy (Mild, Uncoded 03/26/18 18:31) ANAPHYLAXIS Home Medications: Home Meds Medication Instructions Recorded Confirmed ALPRAZolam [Xanax] PO TID PRN 03/28/18 Albuterol/Ipratropium [Duoneb 3 INH Q4 03/28/18 mg/0.5 mg (3 ml) UD] Aspirin Chewable 81 mg PO DAILY 03/28/18 03/28/18 Atenolol [Tenormin] 25 mg PO DAILY 03/28/18 03/28/18 Buspirone HCl [Buspirone HCl] 15 mg PO TID 03/28/18 03/28/18 Glipizide [Glucotrol] 10 mg PO DAILY 03/28/18 03/28/18 Montelukast Sodium [Singulair] 10 mg PO DAILY 03/28/18 03/28/18 Pregabalin [Lyrica] 1 cap PO BID 03/28/18 03/28/18 Risperidone [Risperdal] 1 mg pe PO DAILY 03/28/18 03/28/18 SITagliptin [Januvia] 1 tab PO DAILY 03/28/18 03/28/18 Xyzal 5 mg DAILY 03/28/18 Zolpidem Tartrate [Ambien] 10 mg PO HS 03/28/18 03/28/18 Review of Systems - Physician Review All systems were reviewed & negative as marked: Yes - Review of Systems Constitutional: Normal Eyes: Normal ENT: Normal Respiratory: SOB Cardiovascular: Chest Pain Gastrointestinal: Normal. absent: Abdominal Pain, Diarrhea, Nausea, Vomiting Genitourinary Female: Normal. absent: Dysuria, Frequency, Hematuria Musculoskeletal: Normal. absent: Back Pain, Neck Pain Skin: Normal. absent: Rash Neurological: Normal. absent: Headache, Dizziness Endocrine: Normal Hemo/Lymphatic: Normal Psychiatric: Normal Physical Exam Vital Signs Reviewed: Yes Vital Signs Temp Pulse Pulse Resp BP Pulse Ox 04/07/18 17:14 97 F L 78 18 122/65 98 04/07/18 17:10 72 18 121/65 100 04/07/18 16:58 72 Blood Pressure: Normal Pulse: Regular Respiratory Rate: Normal Appearance: Positive for: Well-Appearing, Non-Toxic, Comfortable Pain Distress: None Mental Status: Positive for: Alert and Oriented X 3 - Systems Exam Head: Present: Atraumatic, Normocephalic Pupils: Present: PERRL Extroacular Muscles: Present: EOMI Conjunctiva: Present: Normal Mouth: Present: Moist Mucous Membranes Neck: Present: Normal Range of Motion Respiratory/Chest: Present: Clear to Auscultation, Good Air Exchange. No: Respiratory Distress, Accessory Muscle Use Cardiovascular: Present: Regular Rate and Rhythm, Normal S1, S2. No: Murmurs Abdomen: No: Tenderness, Distention, Peritoneal Signs Back: Present: Normal Inspection. No: CVA Tenderness, Midline Tenderness, Paraspinal Tenderness Upper Extremity: Present: Normal Inspection. No: Cyanosis, Edema Lower Extremity: Present: Normal Inspection. No: Edema Neurological: Present: GCS=15, CN II-XII Intact, Speech Normal Skin: Present: Warm, Dry, Normal Color. No: Rashes Psychiatric: Present: Alert, Oriented x 3, Normal Insight, Normal Concentration Medical Decision Making ED Course and Treatment: 04/07/18 17:17 Impression: 57 year old female presents to the emergency department via EMS for sudden substernal chest pain radiating to the neck and shoulder, sweats, and shortness of breath. Plan: -- Labs -- Chest X-ray -- Plavix -- Integrilin Bolus -- Heparin -- Lopressor -- NGL -- Reassess and disposition Progress Notes: Case discussed with Dr. Vidales, who took pt to production laborer. Case discussed with Dr. Burciaga, who is aware and agrees with plan. Accepts pt into his service. 04/07/18 18:00 EKG reviewed, shows NSR at [address] wave elevations. Acute WA. - Critical Care Critical Care Minutes: 30 minutes - Lab Interpretations Lab Results: 04/07/18 17:35 04/07/18 17:35 Lab Results 04/07/18 17:35: Sodium 135, Potassium 4.1, Chloride 95 L, Carbon Dioxide 30, Anion Gap 14, BUN 9, Creatinine 0.5 L, Est GFR ( Amer) > 60, Est GFR (Non -Af Amer) > 60, Random Glucose 283 H, Calcium 9.0, Total Bilirubin 0.2, AST 12 L , ALT 27, Alkaline Phosphatase 93, Lactate Dehydrogenase 319 L, Total Creatine Kinase 51, Troponin I < 0.01, Total Protein 5.8, Albumin 3.5, Globulin 2.3, Albumin/Globulin Ratio 1.6 04/07/18 17:35: WBC 16.3 H D, RBC 4.93, Hgb 14.9 D, Hct 43.2, MCV 87.6, MCH 30.2, MCHC 34.5, RDW 13.3, Plt Count 341, MPV 10.0, Gran % 78.4 H, Lymph % (Auto ) 17.5 L, Cass % (Auto) 2.9, Eos % (Auto) 1.0 L, Baso % (Auto) 0.2, Gran # 12.80 H, Lymph # (Auto) 2.9, Cass # (Auto) 0.5, Eos # (Auto) 0.2, Baso # (Auto) 0.03 04/07/18 17:35: PT 11.0, INR 0.97, APTT 26.9 - EKG Interpretation Interpreted by ED Physician: Yes Type: 12 lead EKG - Medication Orders Current Medication Orders: Acetaminophen (Tylenol 325mg Tab) 650 mg PO Q4H PRN PRN Reason: Pain, Mild (1-3) Albuterol/Ipratropium (Duoneb 3 Mg/0.5 Mg (3 Ml) Ud) 3 ml IH Q2H PRN PRN Reason: Shortness of Breath Albuterol/Ipratropium (Duoneb 3 Mg/0.5 Mg (3 Ml) Ud) 3 ml IH [id number] [facility] Last Admin: 04/08/18 15:48 Dose: 3 ml Alprazolam (Xanax) 0.25 mg PO BID PRN PRN Reason: Anxiety Stop: 04/14/18 18:37 Aspirin (Ecotrin) 81 mg PO DAILY [facility] Last Admin: 04/08/18 09:54 Dose: 81 mg Atorvastatin Calcium (Lipitor) 40 mg PO DIN [facility] Clopidogrel Bisulfate (Plavix) 75 mg PO DAILY [facility] Last Admin: 04/08/18 10:03 Dose: 75 mg Docusate Sodium (Colace) 100 mg PO BID [facility] Last Admin: 04/08/18 17:23 Dose: Not Given Non-Admin Reason: Patient Refused Enoxaparin Sodium (Lovenox) 40 mg SC DAILY [facility] PRN Reason: Protocol Famotidine (Pepcid) 40 mg PO [facility] Glipizide (Glucotrol) 10 mg PO DAILY [facility] Last Admin: 04/08/18 09:53 Dose: 10 mg Insulin Human Regular (Humulin R Low) 0 units SC ACHS [facility] PRN Reason: Protocol Last Admin: 04/08/18 21:48 Dose: Not Given Non-Admin Reason: Blood Sugar Parameter Metoprolol Tartrate (Lopressor) 25 mg PO BID [facility] Last Admin: 04/08/18 17:16 Dose: 25 mg MAR Pulse and Blood Pressure Document 04/08/18 17:16 ALIPM (Rec: 04/08/18 17:16 ALIPM [facility] [place] [employer]) Pulse Pulse Rate (60-90) 61 Blood Pressure Blood Pressure (100/60-150/90) 157/78 Ramipril (Altace) 10 mg PO DAILY [facility] Last Admin: 04/08/18 09:52 Dose: 10 mg Zolpidem Tartrate (Ambien) 5 mg PO HS PRN PRN Reason: Insomnia Last Admin: 04/07/18 22:45 Dose: 5 mg Re-Assess: Reassess Psych Meds Document 04/07/18 23:45 B.P (Rec: 04/08/18 19:08 B.P [id number]) Reassess Psych Med Effective Discontinued Medications Atorvastatin Calcium (Lipitor) 80 mg PO DIN [facility] Stop: 04/08/18 23:59 Clopidogrel Bisulfate (Plavix) 600 mg PO STAT STA Stop: 04/07/18 17:01 Last Admin: 04/07/18 17:04 Dose: 600 mg Eptifibatide (Integrilin Bolus) 12.1 mg IVP STAT STA Stop: 04/07/18 17:01 Last Admin: 04/07/18 17:06 Dose: 12.1 mg IVP Administration Document 04/07/18 17:06 [facility] (Rec: 04/07/18 19:14 [facility] [id number]) Charges for Administration # of IVP Administrations 1 Heparin Sodium (Porcine) (Heparin) 5,000 units SC STAT STA PRN Reason: Protocol Stop: 04/07/18 17:01 Last Admin: 04/07/18 17:05 Dose: 5,000 units Subcutaneous Administrations Document 04/07/18 17:05 [facility] (Rec: 04/07/18 19:13 [facility] [id number]) Charges for Administration # of Subcutaneous Administrations 1 Heparin Sodium (Porcine) (Heparin 1000 Units/500 Ml Ns) 500 mls @ 50 mls/hr IV ONCE ONE Stop: 04/08/18 02:59 Sodium Chloride (Sodium Chloride 0.9%) 1,000 mls @ 50 mls/hr IV .Q20H [facility] Stop: 04/08/18 08:00 Metoprolol Tartrate (Lopressor) 5 mg IVP STAT STA Stop: 04/07/18 17:06 Nitroglycerin (Nitrostat Sl Tab) 0.4 mg SL STAT STA Stop: 04/07/18 17:01 Ramipril (Altace) 1.25 mg PO DAILY [facility] - Scribe Statement The provider has reviewed the documentation as recorded by the Scribe Winifred Boone All medical record entries made by the Scribe were at my direction and personally dictated by me. I have reviewed the chart and agree that the record accurately reflects my personal performance of the history, physical exam, medical decision making, and the department course for this patient. I have also personally directed, reviewed, and agree with the discharge instructions and disposition. Disposition/Present on Arrival - Present on Arrival Any Indicators Present on Arrival: Yes History of DVT/PE: No History of Uncontrolled Diabetes: Yes Urinary Catheter: No History of Decub. Ulcer: No History Surgical Site Infection Following: None - Disposition Have Diagnosis and Disposition been Completed?: Yes Diagnosis: STEMI (ST elevation myocardial infarction) Disposition: HOSPITALIZED Disposition Time: 18:00 Patient Plan: Admission, ICU Patient Problems: Current Active Problems Problem Status Onset STEMI (ST elevation myocardial infarction) Acute Condition: CRITICAL
--- NOTE | 2018-04-07 17:24 | CP.PCM.PN ---
<GelyJessika - Last Filed: 04/07/18 17:48> Subjective - Date & Time of Evaluation Date of Evaluation: 04/07/18 Time of Evaluation: 17:21 - Subjective Subjective: Code Heart Note 57 year old female smoker, whose past medical history includes hypertension, COPD, and CAD, who presented with sudden onset of substernal chest pain radiating to the neck and shoulders, sweats, and shortness of breath. Emergency department's EKG shows a STEMI on the anterior wall. Code heart was called. Floorworker Lasting examined patient in the ED. Patient was transferred to cardiac cath with personnel monitor and supplemental oxygen. Patient care was transferred to cath team. Objective - Vital Signs/Intake and Output Vital Signs (last 24 hours): Temp Pulse Resp BP Pulse Ox 97 F L 78 18 122/65 98 04/07/18 17:14 04/07/18 17:14 04/07/18 17:14 04/07/18 17:14 04/07/18 17:14 - Medications Medications: Current Medications Heparin Sodium (Porcine) (Heparin 1000 Units/500 Ml Ns) 500 mls @ 50 mls/hr IV ONCE ONE Stop: 04/08/18 02:59 - Head Exam Head Exam: ATRAUMATIC, NORMOCEPHALIC - Eye Exam Eye Exam: Normal appearance - ENT Exam ENT Exam: Mucous Membranes Moist - Respiratory Exam Respiratory Exam: NORMAL BREATHING PATTERN. absent: Respiratory Distress - Cardiovascular Exam Cardiovascular Exam: REGULAR RHYTHM - Neurological Exam Neurological Exam: Alert, Awake, Oriented x3 - Skin Skin Exam: Dry, Intact, Normal Color, Warm Assessment and Plan - Assessment and Plan (Free Text) Assessment: 57 year old female smoker, whose past medical history includes hypertension, COPD, and CAD, who presents with chest pain and found to have STEMI on the anterior wall, code heart was called. <Jamel Daina - Last Filed: 04/07/18 18:11> Objective - Vital Signs/Intake and Output Vital Signs (last 24 hours): Temp Pulse Resp BP Pulse Ox 97 F L 78 18 122/65 98 04/07/18 17:14 04/07/18 17:14 04/07/18 17:14 04/07/18 17:14 04/07/18 17:14 - Medications Medications: Current Medications Heparin Sodium (Porcine) (Heparin 1000 Units/500 Ml Ns) 500 mls @ 50 mls/hr IV ONCE ONE Stop: 04/08/18 02:59 - Labs Labs: 04/07/18 17:35 04/07/18 17:35 PT 11.0 SECONDS (9.4-12.5) 04/07/18 17:35 INR 0.97 (0.93-1.08) 04/07/18 17:35 APTT 26.9 Seconds (25.1-36.5) 04/07/18 17:35 Attending/Attestation - Attestation I have personally seen and examined this patient.: Yes I have fully participated in the care of the patient.: Yes I have reviewed all pertinent clinical information, including history, physical exam and plan: Yes Notes (Text): Agree with above. Taken for cardiac cath with Dr Vidales
[2018-04-07 17:39] LABS: BASO # 0.03 K/mm3 (0.0-2.0); BASO % 0.2 % (0.0-3.0); EOS # 0.2 (0.0-0.7); GRAN # 12.8 (1.4-6.5); GRAN % 78.4 % (50.0-68.0); HEMOGLOBIN 14.9 g/dL (12.0-16.0); LYMPH # 2.9 (1.2-3.4); LYMPH % 17.5 % (22.0-35.0); MEAN CELL VOLUME 87.6 fl (80.0-105.0); MEAN CORPUSCULAR HEMOGLOBIN 30.2 pg (25.0-35.0); MEAN CORPUSCULAR HGB CONC 34.5 g/dl (31.0-37.0); MONO # 0.5 (0.1-0.6); MONO % 2.9 % (1.0-6.0); RBC 4.93 10^6/uL (3.5-6.1); RED CELL DISTRIBUTION WIDTH 13.3 % (11.5-14.5); WHITE BLOOD COUNT 16.3 10^3/ul (4.5-11.0)
[2018-04-07 17:48] LABS: INR 0.97 (0.93-1.08); PARTIAL THROMBOPLASTIN TIME 26.9 Seconds (25.1-36.5)
[2018-04-07 18:00] LABS: ALB/GLOB RATIO 1.6 (1.1-1.8); ALBUMIN 3.5 g/dL (3.0-4.8); ALT/SGPT 27 U/L (7-56); AST/SGOT 12 U/L (14-36); BLOOD UREA NITROGEN 9 mg/dL (7-21); GFR AFRICAN-AMERICAN > 60; GFR NON-AFRICAN AMERICAN > 60
[2018-04-07 18:03] LABS: TROPONIN I < 0.01 ng/mL
--- NOTE | 2018-04-07 18:30 | CARD ---
APPROVED REPORT EKG Measurement Heart [id number] <Conclusion> Normal sinus rhythm ST elevation, consider anterior injury or acute infarct Prolonged QT ACUTE CA
[2018-04-07] MEDS ORDERED: Sodium Chloride 0.9% 1,000 ML IV SCH (18:45)
--- NOTE | 2018-04-07 19:06 | CARD ---
APPROVED REPORT Procedure(s) performed: Left Heart Catheterization PTCA with Stenting of D1 with VIKI PTCA with Stenting of Mid LAD with VIKI PTCA with Stenting of Mid RCA with VIKI HISTORY The patient is a 57 year-old female with a history of : previous IL (> 7 days), diabetes mellitus with insulin treatment , chronic lung disease, previous diagnostic cath, tobacco history() : The patient is a current smoker , previous PCI (The PCI date was 11/01/2008), hypertension , Active Tobacco Abuser came with STEMI. INDICATION The indication(s) include : STEMI . CASE TECHNIQUE The patient was brought emergently to the Cardiac Catheterization Laboratory in a fasting state and was prepped and draped in a sterile manner. The right femoral groin was infiltrated with 2% Lidocaine subcutaneous anesthesia. A 6 Fr x 11 cm Keiko sheath was inserted into the right femoral artery without difficulty. Coronary angiography was performed using coronary diagnostic catheters. The left coronary system was accessed and visualized with a Diagnostic , 6F JL4 CATH DXT 100 CM catheter. The right coronary system was accessed and visualized with a 6F JR 4 CATH DXT 100 CM catheter. The left ventricle was accessed and visualized with a 6F PIGTAIL 145 CATH DXT 110 CM catheter. Left ventricular/Aortic Valve gradient assessed on pullback. Left ventriculogram was performed in BUCKNER projection. Closure device was deployed with a 6 Fr Angio-Seal without any complications. The patient tolerated the procedure well and there were no complications associated with the procedure. Vessel Analysis The patient's coronary anatomy is co-dominant. The left main coronary artery is a medium size vessel with diffuse calcification noted throughout this vessel and without significant stenosis. The left main bifurcates to the left anterior descending and circumflex. The left anterior descending artery is a medium size vessel with diffuse calcification noted throughout this vessel and with significant stenosis. There is a 90% stenosis in the mid segment. The first diagonal branch is a large size vessel with diffuse calcification noted throughout this vessel and with significant stenosis. There is a 90% stenosis in the mid segment. patent stent in proximally The circumflex artery is a medium size vessel with diffuse calcification noted throughout this vessel and without significant stenosis. The first obtuse marginal branch is a medium size vessel with diffuse calcification noted throughout this vessel and without significant stenosis. The second obtuse marginal branch is a medium size vessel with diffuse calcification noted throughout this vessel and without significant stenosis. The left posterior descending artery is a medium size vessel with diffuse calcification noted throughout this vessel and without significant stenosis. The right coronary artery is a medium size vessel with diffuse calcification noted throughout this vessel and with significant stenosis. There is a 90% stenosis in the mid segment. The right posterolateral branch is a medium size vessel with diffuse calcification noted throughout this vessel and without significant stenosis. Left Ventricle The left ventricle is normal in size with normal contractility. There was no cardiomyopathy. The left ventricular ejection fraction is estimated to be 55-60%. The left ventricular end diastolic pressure is 25 mmHg. There was no gradient across the aortic valve upon pullback. PCI Technique Lesion Anticoagulation was achieved with Heparin. Percutaneous coronary intervention was performed on the first diagnonal branch segment. The lesion stenosis prior to intervention was 90% with CHRISTEN 1 flow. A 6 Fr XB 3 Guide Catheter was used to engage the ostium. A Luge 182 Interventional Guidewire was used to cross the lesion. BALLOON DILATION A Balloon catheter 2.0 x 12 mm Sprinter RX was inserted and inflated up to 12.00atm for 14seconds. STENT DEPLOYMENT A drug-eluting stent STENT RESOLUTE CHESTER 2.5 X12 was inserted and inflated up to 12.00atm for 14seconds. another stent 2.25/12 dista to first stent deployed at 12 atmos for 20 secods Final angiography reveals 0 % stenosis with CHRISTEN 3 flow. PCI Technique Lesion 2 Percutaneous Coronary Intervention was performed on the mid left anterior descending artery segment. The lesion stenosis prior to intervention was 90% with CHRISTEN 1 flow. A 6 Fr XB 3 Guide Catheter was used to engage the ostium. A Luge 182 Interventional Guidewire was used to cross the lesion. BALLOON DILATION A Balloon catheter 2.25 x 15 mm Trek RX NC was inserted and inflated up to 6.00atm for 13seconds. STENT DEPLOYMENT A drug-eluting stent STENT RESOLUTE CHESTER 2.25 X26 was inserted and inflated up to 14.00atm for 30seconds. Final angiography reveals 0 % stenosis with CHRISTEN 3 flow. PCI Technique Lesion 3 Percutaneous Coronary Intervention was performed on the mid right coronary artery. The lesion stenosis prior to intervention was 90% with CHRISTEN 2 flow. A 6 Fr JR 3.5 Guide Catheter was used to engage the ostium. BALLOON DILATION A Balloon catheter 2.0 x 20 mm Sprinter RX was inserted and inflated up to 13.00atm for 6seconds. STENT DEPLOYMENT A drug-eluting stent STENT RESOLUTE CHESTER 2.75 X30 was inserted and inflated up to 13.00atm for 20seconds. Final angiography reveals 0 % stenosis with CHRISTEN 3 flow. Conclusion Multi Vessel CAD Di and LAD thought to be culprit for this STEMI Pt was C/o Chest pain after PTCA of LAD/D1 , so PTCA of RCA was proceeded, Initial plan was to do RCA as Staged PTCA. Preserved LV FX. EF-55-60%, EDP-25 mmof Hg. Successful PTCa with Viki of LAD/DI/ RCA Recommendations Smoking Cessation Cardiac Rehabilitation ReferralDaily ASA with Plavix for at least one year Aggressive Medical TherapyCardiac Risk Reduction Program Cc; Dr. Yasmany Burciaga MD
--- NOTE | 2018-04-07 19:40 | CPOSTOP ---
DATE: 04/07/2018 DICTATING PHYSICIAN: Katerine Vidales MD SHELLFISH WEIGHER: ANN Natarajan. TYPE OF ANESTHESIA: Moderate conscious sedation. Total 2 mg of Versed and 100 of fentanyl was given, periodically started 1 mg of Versed and 50 of fentanyl. PRE-PROCEDURE DIAGNOSES: Code ST-elevation myocardial infarction, anterior wall myocardial infarction. PROCEDURE PERFORMED: 1. Left heart catheterization. 2. Stenting of diagonal 1, stenting of left anterior descending and stenting of right coronary artery. FINDINGS: Multivessel coronary artery disease. FINAL DIAGNOSIS: Coronary artery disease, multivessel. POST PROCEDURE CONDITION: Patient's condition is stable. VASCULAR ACCESS: Right femoral artery. CLOSURE DEVICE: Angio-Seal. TOTAL RADIATION DOSE: 42812 milligray unit. FLUORO TIME: 17.3 minutes. Katerine Vidales MD
[2018-04-07 19:48] LABS: BASO # 0.01 K/mm3 (0.0-2.0); BASO % 0.1 % (0.0-3.0); EOS % 0.3 % (1.5-5.0); GRAN # 11.85 (1.4-6.5); GRAN % 87.1 % (50.0-68.0); HEMOGLOBIN 14.9 g/dL (12.0-16.0); LYMPH # 1.5 (1.2-3.4); LYMPH % 10.9 % (22.0-35.0); MEAN CORPUSCULAR HEMOGLOBIN 29.4 pg (25.0-35.0); MEAN CORPUSCULAR HGB CONC 33.4 g/dl (31.0-37.0); MEAN PLATELET VOLUME 9.9 fl (7.0-11.0); MONO # 0.2 (0.1-0.6); MONO % 1.6 % (1.0-6.0); RBC 5.07 10^6/uL (3.5-6.1); RED CELL DISTRIBUTION WIDTH 13.3 % (11.5-14.5); WHITE BLOOD COUNT 13.6 10^3/ul (4.5-11.0)
[2018-04-07 20:04] LABS: BLOOD UREA NITROGEN 11 mg/dL (7-21); CALCIUM 8.7 mg/dL (8.4-10.5); GFR AFRICAN-AMERICAN > 60; GFR NON-AFRICAN AMERICAN > 60
--- NOTE | 2018-04-07 20:05 | CP.PCM.CON ---
<Bee Rolon - Last Filed: 04/07/18 23:42> History of Present Illness - History of Present Illness History of Present Illness: ICU Consult Note Reason for consult: Romina Heart This is a 57 yo female with past medical history of CAD s/p stents, IDDM, COPD, PUD, HTN, anxiety/depression who came to ED for sudden onset chest pain. Patient states she was eating dinner ([employer]) when she had sudden crushing chest pain the radiated to her L shoulder and jaw. She did not feel short of breath. In ED, patient had anterior wall STEMI on EKG. Romina peterson was called and patient was taken to carpenter/labor for PCI. She denies nausea/vomiting/ diarrhea, fever/chills, numbness/tingling, vision changes, headache or dizziness. Of note, patient was recently admitted to [facility] for COPD exacerbation and was taking PO Prednisone at home. Patient was seen and examined post cardiac cath. Past medical history: CAD, IDDM, COPD, PUD, tobacco abuse, HTN, HLD, anxiety/ depression, arthritis, diverticulitis Past surgical history: cholecystectomy, appendectomy, PCI x 2, C2-3 fusion Home meds: Reviewed Allergies: gentamicin (swelling) Social history: heavy smoker, denies EtOH or drug use. Lives with sister Family history: DM Review of Systems - Review of Systems All systems: reviewed and no additional remarkable complaints except Review of Systems: 12 point ROS reviewed as per HPI and is otherwise negative Past Patient History - Infectious Disease Hx of Infectious Diseases: None - Tetanus Immunizations Tetanus Immunization: Unknown - Past Social History Smoking Status: Light Smoker < 10 Cigarettes Daily - CARDIAC Hx Cardiac Disorders: Yes Hx Angina: Yes Hx Hypertension: Yes - PULMONARY Hx Respiratory Disorders: Yes Hx Asthma: Yes Hx Chronic Obstructive Pulmonary Disease (COPD): Yes Hx Pneumonia: Yes - NEUROLOGICAL Hx Paralysis: No - HEENT Hx HEENT Problems: No - RENAL Hx Chronic Kidney Disease: No - ENDOCRINE/METABOLIC Hx Diabetes Mellitus Type 2: Yes - HEMATOLOGICAL/ONCOLOGICAL Hx Blood Transfusions: No Hx Blood Transfusion Reaction: No - INTEGUMENTARY Hx Dermatological Problems: No - MUSCULOSKELETAL/RHEUMATOLOGICAL Hx Musculoskeletal Disorders: Yes Hx Arthritis: Yes Hx Degenerative Joint Disease: Yes Hx Falls: No - GASTROINTESTINAL Hx Gastrointestinal Disorders: Yes Hx Diverticulitis: Yes Other/Comment: COLON POLYPS, - GENITOURINARY/GYNECOLOGICAL Hx Genitourinary Disorders: No - PSYCHIATRIC Hx Anxiety: Yes Hx Depression: Yes Hx Substance Use: No - SURGICAL HISTORY Hx Cardiac Catheterization: Yes Hx Coronary Stent: Yes - ANESTHESIA Hx Anesthesia: Yes Hx Anesthesia Reactions: No Hx Malignant Hyperthermia: No Meds Allergies/Adverse Reactions: Allergies Allergy/AdvReac Type Severity Reaction Status Date / Time MYCINS Allergy Mild ANAPHYLAXIS Uncoded 03/26/18 18:31 - Medications Medications: Current Medications Acetaminophen (Tylenol 325mg Tab) 650 mg PO Q4H PRN PRN Reason: Pain, Mild (1-3) Alprazolam (Xanax) 0.25 mg PO BID PRN PRN Reason: Anxiety Stop: 04/14/18 18:37 Aspirin (Ecotrin) 81 mg PO DAILY [facility] Atorvastatin Calcium (Lipitor) 80 mg PO DIN [facility] Clopidogrel Bisulfate (Plavix) 75 mg PO DAILY [facility] Docusate Sodium (Colace) 100 mg PO BID [facility] Glipizide (Glucotrol) 10 mg PO DAILY [facility] Heparin Sodium (Porcine) (Heparin 1000 Units/500 Ml Ns) 500 mls @ 50 mls/hr IV ONCE ONE Stop: 04/08/18 02:59 Sodium Chloride (Sodium Chloride 0.9%) 1,000 mls @ 50 mls/hr IV .Q20H NOELLE Stop: 04/08/18 08:00 Insulin Human Regular (Humulin R Low) 0 units SC ACHS NOELLE PRN Reason: Protocol Metoprolol Tartrate (Lopressor) 25 mg PO BID [facility] Ramipril (Altace) 1.25 mg PO DAILY [facility] Zolpidem Tartrate (Ambien) 5 mg PO HS PRN PRN Reason: Insomnia Physical Exam - Constitutional Appears: No Acute Distress - Head Exam Head Exam: ATRAUMATIC, NORMAL INSPECTION, NORMOCEPHALIC - Eye Exam Eye Exam: Normal appearance, PERRL Pupil Exam: NORMAL ACCOMODATION - ENT Exam ENT Exam: Mucous Membranes Moist - Respiratory Exam Respiratory Exam: Wheezes (mild ), NORMAL BREATHING PATTERN. absent: Rales, Rhonchi - Cardiovascular Exam Cardiovascular Exam: REGULAR RHYTHM, +S1, +S2. absent: Gallop, Rubs, Systolic Murmur - GI/Abdominal Exam GI & Abdominal Exam: Normal Bowel Sounds, Soft. absent: Mass, Rebound, Rigid, Tenderness - Extremities Exam Extremities exam: Positive for: normal inspection. Negative for: calf tenderness, pedal edema Additional comments: cath site clean and dry - Neurological Exam Neurological exam: Alert, CN II-XII Intact, Oriented x3 - Skin Skin Exam: Dry, Warm Results - Vital Signs Recent Vital Signs: Last Vital Signs Temp 97 F L 04/07/18 17:14 Pulse 68 04/07/18 20:00 Resp 19 04/07/18 20:00 BP 118/70 04/07/18 20:00 Pulse Ox 98 04/07/18 20:00 - Labs Result Diagrams: 04/07/18 19:43 04/07/18 19:43 Labs: Laboratory Results - last 24 hr 04/07/18 04/07/18 19:43 19:43 WBC 13.6 H RBC 5.07 Hgb 14.9 Hct 44.6 MCV 88.0 MCH 29.4 MCHC 33.4 RDW 13.3 Plt Count 280 MPV 9.9 Gran % 87.1 H Lymph % (Auto) 10.9 L Howell % (Auto) 1.6 Eos % (Auto) 0.3 L Baso % (Auto) 0.1 Gran # 11.85 H Lymph # (Auto) 1.5 Howell # (Auto) 0.2 Eos # (Auto) 0.0 Baso # (Auto) 0.01 Sodium 138 Potassium 4.2 Chloride 97 L Carbon Dioxide 29 Anion Gap 16 BUN 11 Creatinine 0.6 L Est GFR ( Amer) > 60 Est GFR (Non-Af Amer) > 60 Random Glucose 397 H* D Calcium 8.7 Assessment & Plan - Assessment and Plan (Free Text) Assessment: This is a 57 yo female with past medical history of CAD s/p stents, IDDM, COPD, PUD, HTN, anxiety/depression admitted for 1. STEMI of anterior wall s/p PCI 3 stents placed 2. COPD 3. IDDM 4. CAD 5. HTN Plan: Patient had 3 stents placed (diagonal, LAD, RCA) by Cardiology. Patient is HD stable. She is on Lipitor, Plavix, Lopressor, Ramipril and ASA. Continue IV fluids. Echo is ordered. Will give Duoneb prn. Maintain spO2 >90%. Continue Heart heathy diet and GI prophylaxis. Patient is on Insulin sliding scale and glipizide. Maintain euglycemia. Leukocytosis secondary to STEMI. No evidence of infection at this time. She will be closely monitored in ICU. Case seen, discussed and reviewed with Dr. Мария Rolon PGY2 - Date & Time Date: 04/08/18 Time: 00:08 <Pippa Hsieh - Last Filed: 04/08/18 05:32> Meds - Medications Medications: Current Medications Acetaminophen (Tylenol 325mg Tab) 650 mg PO Q4H PRN PRN Reason: Pain, Mild (1-3) Alprazolam (Xanax) 0.25 mg PO BID PRN PRN Reason: Anxiety Stop: 04/14/18 18:37 Aspirin (Ecotrin) 81 mg PO DAILY [facility] Atorvastatin Calcium (Lipitor) 80 mg PO DIN [facility] Clopidogrel Bisulfate (Plavix) 75 mg PO DAILY [facility] Docusate Sodium (Colace) 100 mg PO BID [facility] Famotidine (Pepcid) 40 mg PO HS [facility] Glipizide (Glucotrol) 10 mg PO DAILY [facility] Sodium Chloride (Sodium Chloride 0.9%) 1,000 mls @ 50 mls/hr IV .Q20H NOELLE Stop: 04/08/18 08:00 Insulin Human Regular (Humulin R Low) 0 units SC ACHS NOELLE PRN Reason: Protocol Last Admin: 04/07/18 20:09 Dose: 3 units Metoprolol Tartrate (Lopressor) 25 mg PO BID [facility] Last Admin: 04/07/18 20:14 Dose: 25 mg Ramipril (Altace) 1.25 mg PO DAILY [facility] Zolpidem Tartrate (Ambien) 5 mg PO HS PRN PRN Reason: Insomnia Last Admin: 04/07/18 22:45 Dose: 5 mg Results - Vital Signs Recent Vital Signs: Last Vital Signs Temp 97 F L 04/07/18 17:14 Pulse 65 04/08/18 03:00 Resp 17 04/08/18 00:45 BP 144/71 04/08/18 00:45 Pulse Ox 99 04/08/18 00:45 - Labs Result Diagrams: 04/07/18 19:43 04/07/18 19:43 Labs: Laboratory Results - last 24 hr 04/07/18 04/07/18 04/08/18 19:43 19:43 00:15 WBC 13.6 H RBC 5.07 Hgb 14.9 Hct 44.6 MCV 88.0 MCH 29.4 MCHC 33.4 RDW 13.3 Plt Count 280 MPV 9.9 Gran % 87.1 H Lymph % (Auto) 10.9 L Howell % (Auto) 1.6 Eos % (Auto) 0.3 L Baso % (Auto) 0.1 Gran # 11.85 H Lymph # (Auto) 1.5 Howell # (Auto) 0.2 Eos # (Auto) 0.0 Baso # (Auto) 0.01 Sodium 138 Potassium 4.2 Chloride 97 L Carbon Dioxide 29 Anion Gap 16 BUN 11 Creatinine 0.6 L Est GFR ( Amer) > 60 Est GFR (Non-Af Amer) > 60 POC Glucose (mg/dL) 285 H Random Glucose 397 H* D Calcium 8.7
[2018-04-07] MEDS: Insulin Reg-LOW-Coverage SC SCH (20:09)
--- NOTE | 2018-04-08 04:01 | CON ---
DATE: REASON FOR CONSULTATION: Code STEMI evaluation, possible anterior wall [place]. BRIEF CLINICAL HISTORY: This is a 57-year-old female, active tobacco abuser, with past medical history significant for coronary artery disease, status post PTCA done many years ago, who was recently admitted and discharged, came in after a dinner patient developed some chest pain, 45 minutes ago came to the emergency room, with very severe excruciating to the chest, radiating to the left side, left shoulder, came to the emergency room, found to be ST elevation in anterior lead, Cardiology consult was called. Code STEMI was activated, 5000 heparin was given, 2 Integrilin boluses given, 600 Plavix and aspirin was given, and code STEMI was activated. Patient is awaiting to the labor employment associate. Risks, benefits and alternatives were discussed with patient. Patient agreed to proceed for cardiac catheterization. PAST MEDICAL HISTORY: Significant for COPD, status post PTCA in 2008, subsequent stress test has been normal, history of mechanical falls, history of OR internal fixation of the right hip. Past history is significant for diabetes, hypertension, hyperlipidemia, coronary artery disease, status post stent in 2008; history of multiple stress tests in 2013, 2014, 2015 and 2016, were negative; most recently in 05/03/2017 that shows normal myocardial perfusion study, no reversible ischemia, ejection fraction 67%. On comparing with last study, no change noted. Patient also had echocardiography on 04/28/2017 that showed ejection fraction 55%, trace mitral regurgitation, trace tricuspid regurgitation. CURRENT MEDICATIONS: The patient is taking at home Ambien, Januvia, Lyrica, Singulair, glipizide, BuSpar, Tenormin, aspirin, albuterol. REVIEW OF SYSTEMS: As per HPI. PHYSICAL EXAMINATION: As follows; VITAL SIGNS: Height of the patient is 5 feet,2 inch weight is 146, body mass index 26 kg/m2. LABORATORY DATA: Pending. DIAGNOSTIC DATA: EKG shows normal sinus, ST elevation in anterior lead. IMPRESSION: Acute ST elevation myocardial infarction, diabetes, hypertension, hyperlipidemia, chronic obstructive pulmonary disease, history of coronary artery disease, status post stent. RECOMMENDATION: We will take her to the labor employment associate, aspirin, Plavix and heparin was given. We will give Integrilin bolus. Risks, benefits, and alternatives were discussed with the patient. Patient agreed to proceed for cardiac catheterization. Further recommendation after cardiac catheterization. We will follow with you. Thank you, Dr. Yasmany Alston for providing us the opportunity in taking care of the patient, Marietta Mancuso. Katerine Vidales MD [facility]
[2018-04-08] MEDS: Insulin Reg-LOW-Coverage SC SCH ×4 (08:00→21:48)
[2018-04-08 08:48] LABS: BASO # 0.01 K/mm3 (0.0-2.0); BASO % 0.1 % (0.0-3.0); EOS # 0.1 (0.0-0.7); EOS % 0.4 % (1.5-5.0); GRAN # 11.87 (1.4-6.5); GRAN % 67.9 % (50.0-68.0); HEMOGLOBIN 15.3 g/dL (12.0-16.0); LYMPH # 4.2 (1.2-3.4); LYMPH % 24.3 % (22.0-35.0); MEAN CELL VOLUME 87.6 fl (80.0-105.0); MEAN CORPUSCULAR HEMOGLOBIN 30.2 pg (25.0-35.0); MEAN CORPUSCULAR HGB CONC 34.5 g/dl (31.0-37.0); MEAN PLATELET VOLUME 9.7 fl (7.0-11.0); MONO # 1.3 (0.1-0.6); MONO % 7.3 % (1.0-6.0); RBC 5.07 10^6/uL (3.5-6.1); RED CELL DISTRIBUTION WIDTH 13.4 % (11.5-14.5); WHITE BLOOD COUNT 17.5 10^3/ul (4.5-11.0)
[2018-04-08 09:11] LABS: ALB/GLOB RATIO 1.4 (1.1-1.8); ALBUMIN 3.7 g/dL (3.0-4.8); ALT/SGPT 26 U/L (7-56); AST/SGOT 38 U/L (14-36); BLOOD UREA NITROGEN 10 mg/dL (7-21); CALCIUM 9.1 mg/dL (8.4-10.5); GFR AFRICAN-AMERICAN > 60; GFR NON-AFRICAN AMERICAN > 60; HDL CHOLESTEROL 50 mg/dL (29-60)
[2018-04-08 09:19] LABS: LDL CHOLESTEROL 119 mg/dL (0-129)
[2018-04-08] MEDS ORDERED: Albuterol-Ipratrop 3 mg / 0.5 (3 ml) UD IH PRN (10:11)
--- NOTE | 2018-04-08 10:22 | RAD ---
HISTORY: leukocytosis COMPARISON: No prior. FINDINGS: LUNGS: No active pulmonary disease. PLEURA: No significant pleural effusion identified, no pneumothorax apparent. CARDIOVASCULAR: Normal. OSSEOUS STRUCTURES: No significant abnormalities. VISUALIZED UPPER ABDOMEN: Normal. OTHER FINDINGS: None. IMPRESSION: No active disease.
[2018-04-08] MEDS: Albuterol-Ipratrop 3 mg / 0.5 (3 ml) UD IH SCH ×2 (10:30→15:48)
[2018-04-08 10:31] LABS: PH,URINE 6.5 (4.7-8.0); URINE BILIRUBIN NEGATIVE (NEGATIVE); URINE BLOOD NEGATIVE (NEGATIVE); URINE GLUCOSE (UA) >=1000 mg/dL (NEGATIVE); URINE LEUKOCYTE ESTERASE NEGATIVE Leu/uL (NEGATIVE); URINE PROTEIN NEGATIVE mg/dL (<30 mg/dL); URINE UROBILINOGEN 0.2 E.U./dL (<1 E.U./dL)
[2018-04-08 10:43] LABS: URINE APPEARANCE CLEAR (CLEAR); URINE COLOR YELLOW (YELLOW)
--- NOTE | 2018-04-08 11:13 | CARD ---
APPROVED REPORT EKG Measurement Heart [id number] MS 170P81 [id number] <Conclusion> Normal sinus rhythm Marked T wave abnormality, consider anterolateral ischemia, evolving AL St elevations V 1 - 4 no longer present.
--- NOTE | 2018-04-08 11:35 | CARD ---
APPROVED REPORT EKG Measurement Heart [id number] 170P81 [id number] <Conclusion> Normal sinus rhythm Marked T wave abnormality, consider anterolateral ischemia Prolonged QT No change
--- NOTE | 2018-04-08 16:06 | PN ---
DATE: 04/08/2018 REASON FOR CONSULTATION: Code STEMI, status post anterior wall [place], status post multivessel angioplasty. SUBJECTIVE: The patient denies any chest pain, shortness of breath, or any palpitations. OBJECTIVE: GENERAL: Not in apparent distress, lying flat on the bed. VITAL SIGNS: Temperature afebrile, heart rate 70, blood pressure 183/80. HEENT: PERRLA. Extraocular muscles intact. NECK: Supple. No carotid bruit or thyromegaly. CHEST: Clear to auscultation. HEART: S1 and S2, regular. ABDOMEN: Soft. EXTREMITIES: Clubbing and cyanosis negative. LABORATORY DATA: Blood workup as follows; WBC ____, hemoglobin , hematocrit 44.4, platelets 318. Chemistry shows sodium 130, potassium , chloride 102, carbon dioxide , creatinine 0.5, troponin pending. EKG shows normal sinus T inversion, V2, V3, V4. No ST elevation, also T inversion, II, III, aVF. IMPRESSION: Status post acute code ST-elevation myocardial infarction, anterior wall myocardial infarction, status post multivessel angioplasty, history of coronary artery disease status post stent in 2008, diabetes, hypertension, hyperlipidemia, active tobacco abuse. RECOMMENDATIONS: We will get echo to assess LV function, last echo dated 04/28/2017 shows ejection fraction 55%, trace mitral regurgitation, trace tricuspid regurgitation. Continue aspirin and Plavix. We will increase ramipril to 10 mg daily because of blood pressure, continue atorvastatin 25 mg b.i.d., 40 mg daily because the total cholesterol 225 mg/dL is 119, 40 mg from tomorrow and increase ramipril to 10 mg daily. Echo to assess LV function, transferred to tele . Complete cessation of smoking recommended and discussed with the patient. We will get DVT prophylaxis from tomorrow. Thank you Dr. Alston, for providing us the opportunity in taking care of the patient, Marietta Mancuso. Katerine Vidales MD
--- NOTE | 2018-04-08 17:26 | CARD ---
APPROVED REPORT EXAM: Two-dimensional and M-mode echocardiogram with Doppler and color Doppler. INDICATION STEMI 2D DIMENSIONS Left Atrium (2D)3.7 (1.6-4.0cm)IVSd0.9 (0.7-1.1cm) LVDd4.1 (3.9-5.9cm)PWd1.2 (0.7-1.1cm) LVDs3.3 (2.5-4.0cm) M-Mode DIMENSIONS Aortic Root3.20 (2.2-3.7cm)Aortic Cusp Exc.1.70 (1.5-2.0cm) Aortic Valve AoV Peak Rxwrgkju823.0cm/José Peak GR.7mmHg Mitral Valve MV E Eetnmtuk11.0cm/sMV A Jsyutrwz26.6cm/sE/A ratio1.1 TDI Lateral E' Peak V7.70cm/sMedial E' Peak V5.26cm/sE/Lateral E'9.9 E/Medial E'14.4 Pulmonary Valve PV Peak Axdwsmof91.7cm/sPV Peak Grad.1mmHg Tricuspid Valve TR Peak Nicxseaq136xe/sRAP [id number] Peak Gr.30mmHg [id number] LEFT VENTRICLE The left ventricle is normal size. There is mild concentric left ventricular hypertrophy. The systolic function is mildly impaired.EF-45% There is mild hypokinesis in the apical anterior wall. Transmitral Doppler flow pattern is Grade III-reversible restrictive diastolic dysfunction. No left ventricle thrombus noted on this study. There is no ventricular septal defect visualized. There is no left ventricular aneurysm. There is no mass noted in the left ventricle. RIGHT VENTRICLE The right ventricle is normal size. There is normal right ventricular wall thickness. The right ventricular systolic function is normal. ATRIA The left atrium size is normal. The right atrium size is normal. The interatrial septum is intact with no evidence for an atrial septal defect. AORTIC VALVE The aortic valve is thickened but opens well. The aortic valve is moderately thickened. There is trace aortic regurgitation. There is no aortic valvular stenosis. There is no aortic valvular vegetation. MITRAL VALVE The mitral valve is thickened but opens well. Mitral annular calcification is mild to moderate. Mitral regurgitation is trace to mild. There is no mitral valve stenosis. There is no evidence of mitral valve prolapse. TRICUSPID VALVE The tricuspid valve leaflets are thickened , but open well. There is trace to mild tricuspid regurgitation.RVSP-40 mmof Hg. There is no tricuspid valve stenosis. There is no tricuspid valve prolapse or vegetation. PULMONIC VALVE The pulmonary valve is normal in structure. There is no pulmonic valvular regurgitation. There is no pulmonic valvular stenosis. GREAT VESSELS The aortic root is normal in size. The ascending aorta is normal in size. The pulmonary artery is normal. The IVC is normal in size and collapses >50% with inspiration. PERICARDIAL EFFUSION There is no pleural effusion. There is a trace pericardial effusion. <Conclusion> The aortic valve is thickened but opens well. The aortic valve is moderately thickened. The left ventricle is normal size. There is mild concentric left ventricular hypertrophy. The systolic function is mildly impaired.EF-45% There is trace aortic regurgitation. Mitral regurgitation is trace to mild. There is trace to mild tricuspid regurgitation.RVSP-40 mmof Hg. There is mild hypokinesis in the apical anterior wall. The IVC is normal in size and collapses >50% with inspiration. There is a trace pericardial effusion. S/p Code STEMI amnterior wall
--- NOTE | 2018-04-08 19:53 | HP ---
HISTORY OF PRESENT ILLNESS: The patient presented to the emergency room with chest pain. She has a past medical history significant for coronary artery disease, status post PTCA done many years ago. She came to the emergency room with severe excruciating pain to the chest radiating to the left side and left shoulder. In the emergency room, she was found to have an ST elevation in the anterior leads. Cardiology consult was called. Code STEMI was activated. PAST MEDICAL HISTORY: Significant for COPD as well as CAD and she has a long history of smoking. The patient is also diabetic, on Januvia. FAMILY HISTORY: Noncontributory. SOCIAL HISTORY: As previously mentioned, the patient is a smoker. ALLERGIES: SHE IS ALLERGIC TO MYCINS. PHYSICAL EXAMINATION: VITAL SIGNS: Pulse rate of 75, blood pressure 161/74, respiratory rate of 23 with an O2 saturation of 98%. HEENT: PERRLA. EOMI. NECK: Supple with a full range of motion. LUNGS: Clear bilaterally. HEART: Regular rate and rhythm. No murmurs. ABDOMEN: Soft, nontender with positive bowel sounds. NEUROLOGIC: The patient is intact. LABORATORY VALUES: This morning, WBC of 17.5. Chemistry: Random glucose of 251. AST of 38. Triglycerides 411, cholesterol 225. The patient will be transferred out of the intensive care unit today , she will be ambulated and if no further problems arise, she will be discharged on Wednesday. CURRENT DIAGNOSES: 1. Status post ST-elevation myocardial infarction. 2. Status post multiple cardiac stents. 3. Diabetes. 4. Chronic obstructive pulmonary disease. Freddy Alston MD
[2018-04-09] MEDS: Albuterol-Ipratrop 3 mg / 0.5 (3 ml) UD IH SCH ×4 (00:21→11:14)
[2018-04-09 01:52] VITALS: RESP 20; TEMP 97.9
[2018-04-09] MEDS: Insulin Reg-LOW-Coverage SC SCH (07:59)
[2018-04-09 08:09] VITALS: PULSE 68; O2SAT 98
[2018-04-09 08:20] LABS: BASO # 0.02 K/mm3 (0.0-2.0); BASO % 0.1 % (0.0-3.0); EOS % 0.1 % (1.5-5.0); GRAN # 13.24 (1.4-6.5); GRAN % 80.6 % (50.0-68.0); HEMOGLOBIN 16.2 g/dL (12.0-16.0); LYMPH % 12.2 % (22.0-35.0); MEAN CELL VOLUME 86.8 fl (80.0-105.0); MEAN CORPUSCULAR HEMOGLOBIN 30.2 pg (25.0-35.0); MEAN CORPUSCULAR HGB CONC 34.8 g/dl (31.0-37.0); MONO # 1.2 (0.1-0.6); RBC 5.36 10^6/uL (3.5-6.1); RED CELL DISTRIBUTION WIDTH 13.2 % (11.5-14.5); WHITE BLOOD COUNT 16.4 10^3/ul (4.5-11.0)
[2018-04-09 09:08] LABS: ALB/GLOB RATIO 1.6 (1.1-1.8); ALBUMIN 4.3 g/dL (3.0-4.8); ALT/SGPT 28 U/L (7-56); AST/SGOT 20 U/L (14-36); BLOOD UREA NITROGEN 5 mg/dL (7-21); CALCIUM 9.4 mg/dL (8.4-10.5); GFR AFRICAN-AMERICAN > 60; GFR NON-AFRICAN AMERICAN > 60
[2018-04-09 09:29] LABS: TROPONIN I 1.02 ng/mL
[2018-04-09] MEDS ORDERED: Enoxaparin 40 mg Syringe SC SCH (10:00)
[2018-04-09 10:24] VITALS: BP 130/70
--- NOTE | 2018-04-09 16:02 | PN ---
DATE: 04/09/2018 REASON FOR CONSULTATION: Followup code STEMI, status post anterior wall [place], status post multivessel PTCA. SUBJECTIVE: The patient denies any chest pain, shortness of breath, or any palpitations. OBJECTIVE: GENERAL: Not in apparent distress, lying flat on the bed. VITAL SIGNS: Temperature afebrile, heart rate 68, blood pressure 130/70. HEENT: PERRLA. Extraocular muscles intact. NECK: Supple. No carotid bruit or thyromegaly. CHEST: Clear to auscultation. HEART: S1 and S2, regular. ABDOMEN: Soft. EXTREMITIES: Clubbing and cyanosis negative. LABORATORY DATA: Blood workup as follows; WBC 16.4, hemoglobin 16.8, hematocrit 46.5, platelet count 362. Chemistry shows sodium 135, potassium 4, chloride 94, carbon dioxide 28, anion gap of 15, BUN 5, creatinine 0.5. Troponin trending down to 1.02. IMPRESSION: Acute anterior wall myocardial infarction, status post primary angioplasty and multivessel diagonal I two stents; left anterior descending, one stent and right coronary artery, one stent. Active tobacco abuse, history of coronary artery disease, status post percutaneous transluminal coronary angioplasty in 2007. RECOMMENDATIONS: Continue aspirin, continue Plavix. Continue ramipril. Continue glipizide. Emphasis made on complete cessation of smoking, compliance with medication, compliance with diet. We will follow up outpatient upon discharge. We will start K-Dur p.o. with Lasix from tomorrow. Today, Dr. Corrigan supplemented IV, so we will hold p.o. today and start K-Dur 20 mEq breakfast. Thank you, Dr. Freddy Alston, for providing us the opportunity in taking care of the patient, Marietta Mancuso. Katerine Vidales MD
--- NOTE | 2018-04-10 08:00 | DS ---
HISTORY OF PRESENT ILLNESS: The patient was in room 275, bed 2. The patient presented to the emergency room complaining of severe substernal chest pain. The patient has a previous history of COPD, myocardial ischemia, diabetes mellitus, hip fracture and after presenting to the emergency room, the patient and had an EKG consistent with myocardial infarction. She was immediately taken to the crime lab analyst by Dr. Vidales, who performed an angiogram along with an angioplasty. This morning, the patient has no complaints. She is ambulating. No chest pain. No shortness of breath. PHYSICAL EXAMINATION: VITAL SIGNS: This morning were afebrile, blood pressure 130/70, respirations 18, oxygen saturation of 98% on room air. HEENT: Negative. NECK: Supple with a full range of motion with no bruits and no adenopathy. LUNGS: Show clear to auscultation and percussion bilaterally. HEART: With a regular rate and rhythm. No murmurs, rubs or gallops. ABDOMEN: Benign. NEUROLOGICAL: The patient is intact. LABORATORY DATA: WBCs are 16.4, which is down from 17.5 yesterday. SMA-23 with the exception of an elevated glucose of 269 is essentially normal. Troponin today is down to 1.02. IMPRESSION: The impression at this time is, 1. Coronary artery disease, status post cardiac stents. 2. Hypertension. 3. Diabetes. PLAN: The patient will be discharged today and followed up in the office in 1 week's duration. Freddy Alston MD
== END 2018-04-09 12:04 | disposition home or self-care (01) | DRG 246 ==
LOC: ED 16:52 → CATH 17:15 → ICU 18:59 → 2RSO 04-08 21:37
PROVIDERS: ADMIT Student in an Organized Health Care Education/Training Program; ATTEND Student in an Organized Health Care Education/Training Program
PROC: 027237Z Dilation of Coronary Artery, Three Arteries with Four or More Drug-eluting Intraluminal Devices, Percutaneous Approach (ICD-10-PCS; principal; 2018-04-07)
PROC: 4A023N7 Measurement of Cardiac Sampling and Pressure, Left Heart, Percutaneous Approach (ICD-10-PCS; 2018-04-07)
PROC: B2151ZZ Fluoroscopy of Left Heart using Low Osmolar Contrast (ICD-10-PCS; 2018-04-07)
PROC: B2111ZZ Fluoroscopy of Multiple Coronary Arteries using Low Osmolar Contrast (ICD-10-PCS; 2018-04-07)
PROC: 3E033PZ Introduction of Platelet Inhibitor into Peripheral Vein, Percutaneous Approach (ICD-10-PCS; 2018-04-07)
DX: I21.09 ST elevation (STEMI) myocardial infarction involving other coronary artery of anterior wall (principal); I25.10 Atherosclerotic heart disease of native coronary artery without angina pectoris; E11.9 Type 2 diabetes mellitus without complications; E78.5 Hyperlipidemia, unspecified; F17.200 Nicotine dependence, unspecified, uncomplicated; I10 Essential (primary) hypertension; J44.9 Chronic obstructive pulmonary disease, unspecified; Z79.4 Long term (current) use of insulin; Z86.010 Personal history of colon polyps; I25.2 Old myocardial infarction; Z87.01 Personal history of pneumonia (recurrent); Z87.11 Personal history of peptic ulcer disease; Z95.5 Presence of coronary angioplasty implant and graft; F32.89 Other specified depressive episodes; F41.9 Anxiety disorder, unspecified; Z87.81 Personal history of (healed) traumatic fracture; Z90.49 Acquired absence of other specified parts of digestive tract; M19.90 Unspecified osteoarthritis, unspecified site; Z88.1 Allergy status to other antibiotic agents; Z87.892 Personal history of anaphylaxis; I08.1 Rheumatic disorders of both mitral and tricuspid valves

== ENCOUNTER 2018-05-07 21:46 | Emergency (ER) | payer MEDICARE, MEDICAID ==
[2018-05-07 21:53] VITALS: BMI 24.0
[2018-05-07 22:04] VITALS: RESP 18; TEMP 99.2
--- NOTE | 2018-05-07 22:50 | ED PDOC ---
Arrival/HPI - General Historian: Patient - History of Present Illness Time/Duration: < week Symptom Course: Unchanged Activities at Onset: Rest Context: Home - General Chief Complaint: Lower Extremity Problem/Injury Time Seen by Provider: 05/07/18 21:52 - History of Present Illness Narrative History of Present Illness (Text): 05/07/18 22:44 This is a 57 year old female with PMH of CAD, last stent placement four weeks ago, COPD, smoker, and diabetes on januvia with last A1C 7.2% one year ago, presents to the ED of 4 day history of bilateral pain that began suddenly. Pain is currently 7/10 and located bilaterally on the anterior area of the lower extremities. She also admits to lower extremity swelling. Pain is described at pins and needles. Patient denies trauma. Patient had hip replacement done in December,. She denies chest pain, SOB, abdominal pain, diarrhea, recent travel , sick contacts at home, headaches, fevers, nausea, and vomiting. (Ebony Sagastume) Past Medical History - Provider Review Nursing Documentation Reviewed: Yes - Infectious Disease Hx of Infectious Diseases: None - Tetanus Immunization Tetanus Immunization: Unknown - Cardiac Hx Cardiac Disorders: Yes Hx Angina: Yes Hx Hypertension: Yes - Pulmonary Hx Respiratory Disorders: Yes Hx Asthma: Yes Hx Chronic Obstructive Pulmonary Disease (COPD): Yes Hx Pneumonia: Yes - Neurological Hx Paralysis: No - HEENT Hx HEENT Disorder: No - Renal Hx Renal Disorder: No - Endocrine/Metabolic Hx Diabetes Mellitus Type 2: Yes - Hematological/Oncological Hx Blood Transfusions: No Hx Blood Transfusion Reaction: No - Integumentary Hx Dermatological Disorder: No - Musculoskeletal/Rheumatological Hx Musculoskeletal Disorders: Yes Hx Arthritis: Yes Hx Degenerative Joint Disease: Yes Hx Falls: No - Gastrointestinal Hx Gastrointestinal Disorders: Yes Hx Diverticulitis: Yes Other/Comment: COLON POLYPS, - Genitourinary/Gynecological Hx Genitourinary Disorders: No - Psychiatric Hx Anxiety: Yes Hx Depression: Yes Hx Substance Use: No - Surgical History Hx Cardiac Catheterization: Yes (5 stents 04/2018) Hx Coronary Stent: Yes (04/2018) - Anesthesia Hx Anesthesia: Yes Hx Anesthesia Reactions: No Hx Malignant Hyperthermia: No - Suicidal Assessment Feels Threatened In Home Enviroment: No Family/Social History - Physician Review Nursing Documentation Reviewed: Yes Family/Social History: Unknown Family HX Smoking Status: Light Smoker < 10 Cigarettes Daily Hx Alcohol Use: No Hx Substance Use: No Hx Substance Use Treatment: No Allergies/Home Meds Allergies/Adverse Reactions: Allergies erythromycin base [From E-Mycin] Allergy (Verified 05/07/18 21:56) ANAPHYLAXIS MYCINS Allergy (Mild, Uncoded 05/07/18 21:52) ANAPHYLAXIS Home Medications: Home Meds Medication Instructions Recorded Confirmed ALPRAZolam [Xanax] 1 mg PO TID PRN 03/28/18 05/07/18 Atenolol [Tenormin] 25 mg PO DAILY 03/28/18 05/07/18 Buspirone HCl [Buspirone HCl] 15 mg PO TID 03/28/18 05/07/18 Glipizide [Glucotrol] 10 mg PO DAILY 03/28/18 05/07/18 Montelukast Sodium [Singulair] 10 mg PO DAILY 03/28/18 05/07/18 Pregabalin [Lyrica] 1 cap PO BID 03/28/18 05/07/18 Risperidone [Risperdal] 1 mg pe PO DAILY 03/28/18 05/07/18 SITagliptin [Januvia] 1 tab PO DAILY 03/28/18 05/07/18 Zolpidem Tartrate [Ambien] 10 mg PO HS 03/28/18 05/07/18 Albuterol/Ipratropium [Duoneb 3 1 inh NEB PRN PRN 05/07/18 05/07/18 mg/0.5 mg (3 ml) UD] Aspirin [Aspirin Chewable] 81 mg PO DAILY 05/07/18 05/07/18 Clopidogrel [Plavix] 75 mg PO DAILY 05/07/18 05/07/18 Levocetirizine Dihydrochloride 5 mg PO DAILY 05/07/18 05/07/18 [Xyzal] Review of Systems - Physician Review All systems were reviewed & negative as marked: Yes - Review of Systems Constitutional: Normal Eyes: Normal ENT: Normal Respiratory: Normal. absent: SOB Cardiovascular: Normal. absent: Chest Pain Gastrointestinal: Normal. absent: Abdominal Pain Genitourinary Female: Normal Musculoskeletal: Normal, Joint Swelling Skin: Normal Neurological: Normal, Other (pins and needles sensation in B/L lower extremities ). absent: Headache Endocrine: Normal Hemo/Lymphatic: Normal Psychiatric: Normal Physical Exam Vital Signs Reviewed: Yes Temperature: Afebrile Blood Pressure: Normal Pulse: Regular Respiratory Rate: Normal Appearance: Positive for: Well-Appearing, Non-Toxic, Comfortable Pain Distress: None Mental Status: Positive for: Alert and Oriented X 3 - Systems Exam Head: Present: Atraumatic, Normocephalic Pupils: Present: PERRL Extroacular Muscles: Present: EOMI Conjunctiva: Present: Normal Mouth: Present: Moist Mucous Membranes Neck: Present: Normal Range of Motion Respiratory/Chest: Present: Clear to Auscultation, Good Air Exchange. No: Respiratory Distress, Accessory Muscle Use Cardiovascular: Present: Regular Rate and Rhythm, Normal S1, S2. No: Murmurs Abdomen: No: Tenderness, Distention, Peritoneal Signs Back: Present: Normal Inspection Upper Extremity: Present: Normal Inspection. No: Cyanosis, Edema Lower Extremity: Present: Normal Inspection, NORMAL PULSES, Tenderness, Swelling. No: Edema, Cyanosis, Schuyler's Sign, Erythema Neurological: Present: Speech Normal, Motor Func Grossly Intact, Normal Sensory Function Skin: Present: Warm, Dry, Normal Color. No: Rashes Psychiatric: Present: Alert, Oriented x 3, Normal Insight, Normal Concentration Vital Signs Temp Pulse Resp BP Pulse Ox 05/07/18 22:02 99.2 F 64 18 136/65 96 Medical Decision Making ED Course and Treatment: Impression: Pt seen and evaluated with manager medical writing. Aware and agree with HPI, clinical findings, plan, and management. Pt, whose past medical history includes CAD, recent coronary stent placement 4 weeks prior, COPD, diabetes, who presented for bilateral lower extremity pain. Plan: -- US Duplex Lower Extremities -- EKG -- Chest X-ray -- Labs -- Reassess and disposition (Chalo Hall) Impression: This is a 57 year old female presenting for B/L lower extremity pain and swelling that began 4 days ago. Plan: -CXRAY -Venous L/E B/L doppler -CBC, CMP -EKG Progress: EKG: Rate is 63bpm, WV interval is 166ms, QRS duration is 82ms, normal sinus rhythm 05/07/18 23:56 Venous doppler study is negative in left and right leg. Patient is doing well and minimal pain. (Ebony Sagastume) - Lab Interpretations Lab Results: 05/07/18 22:43 05/07/18 22:43 Lab Results 05/07/18 22:43: Sodium 137, Potassium 4.0, Chloride 101, Carbon Dioxide 29, Anion Gap 11, BUN 10, Creatinine 0.5 L, Est GFR ( Amer) > 60, Est GFR ( Non-Af Amer) > 60, Random Glucose 196 H, Calcium 9.0, Total Bilirubin 0.2, AST 15, ALT 26, Alkaline Phosphatase 91, Total Protein 6.3, Albumin 3.7, Globulin 2.7, Albumin/Globulin Ratio 1.4 05/07/18 22:43: WBC 7.1 D, RBC 4.35, Hgb 13.0 D, Hct 38.5, MCV 88.5, MCH 29.9 , MCHC 33.8, RDW 14.2, Plt Count 225, MPV 9.5, Gran % 42.4 L, Lymph % (Auto) 45.8 H, [place] % (Auto) 6.9 H, Eos % (Auto) 4.5, Baso % (Auto) 0.4, Gran # 2.99, Lymph # (Auto) 3.2, [place] # (Auto) 0.5, Eos # (Auto) 0.3, Baso # (Auto) 0.03 - RAD Interpretation Radiology Orders: 05/07/18 22:23 CXR [CHEST PORTABLE] [RAD] Stat DUPLEX LOWER EXTRM VEIN BILAT [US] Stat - PA / FINANCIAL PROFESSIONAL / Resident Statement / has reviewed & agrees with the documentation as recorded. /DO has examined the patient and agrees with the treatment plan. Disposition/Present on Arrival - Present on Arrival Any Indicators Present on Arrival: Yes History of DVT/PE: No History of Uncontrolled Diabetes: Yes Urinary Catheter: No History of Decub. Ulcer: No History Surgical Site Infection Following: None - Disposition Have Diagnosis and Disposition been Completed?: Yes Disposition Time: 00:15 - Disposition Diagnosis: Leg edema Disposition: HOME/ ROUTINE Condition: GOOD Discharge Instructions (ExitCare): Dependent Edema (DC), Swelling Additional Instructions: Follow up with primary care doctor. Referrals: Alecia LEWIS,Yasmany Rodrigues MD [Primary Care Provider] - Follow up with primary Forms: [employer] (Portuguese)
[2018-05-07 22:52] LABS: BASO # 0.03 K/mm3 (0.0-2.0); BASO % 0.4 % (0.0-3.0); EOS # 0.3 (0.0-0.7); EOS % 4.5 % (1.5-5.0); GRAN # 2.99 (1.4-6.5); GRAN % 42.4 % (50.0-68.0); LYMPH # 3.2 (1.2-3.4); LYMPH % 45.8 % (22.0-35.0); MEAN CELL VOLUME 88.5 fl (80.0-105.0); MEAN CORPUSCULAR HEMOGLOBIN 29.9 pg (25.0-35.0); MEAN CORPUSCULAR HGB CONC 33.8 g/dl (31.0-37.0); MEAN PLATELET VOLUME 9.5 fl (7.0-11.0); MONO # 0.5 (0.1-0.6); MONO % 6.9 % (1.0-6.0); RBC 4.35 10^6/uL (3.5-6.1); RED CELL DISTRIBUTION WIDTH 14.2 % (11.5-14.5); WHITE BLOOD COUNT 7.1 10^3/ul (4.5-11.0)
[2018-05-07 23:16] LABS: ALB/GLOB RATIO 1.4 (1.1-1.8); ALBUMIN 3.7 g/dL (3.0-4.8); ALT/SGPT 26 U/L (7-56); AST/SGOT 15 U/L (14-36); BLOOD UREA NITROGEN 10 mg/dL (7-21); GFR AFRICAN-AMERICAN > 60; GFR NON-AFRICAN AMERICAN > 60
[2018-05-08 00:17] VITALS: BP 133/60; PULSE 66; O2SAT 97
--- NOTE | 2018-05-08 09:09 | CARD ---
APPROVED REPORT EKG Measurement Heart [id number] <Conclusion> Normal sinus rhythm Septal infarct, age undetermined Improved repolarization changes c/w ECG 04/09/18
--- NOTE | 2018-05-08 09:12 | RAD ---
HISTORY: R/O DVT COMPARISON: 04/08/2018 FINDINGS: LUNGS: No active pulmonary disease. PLEURA: No significant pleural effusion identified, no pneumothorax apparent. CARDIOVASCULAR: No radiographic findings to suggest acute or significant cardiovascular disease. Item OSSEOUS STRUCTURES: No significant abnormalities. VISUALIZED UPPER ABDOMEN: Normal. OTHER FINDINGS: None. IMPRESSION: No active disease. No significant interval change compared to the prior examination(s).
--- NOTE | 2018-05-09 09:30 | US ---
HISTORY: Leg pain and swelling. Evaluate for DVT PHYSICIAN(S): Willi Espinoza MD. TECHNIQUE: Duplex sonography and color-flow Doppler with graded compression were used to evaluate the deep venous systems of both lower extremities. FINDINGS: The visualized deep venous systems of both lower extremities are sonographically normal and compressible. Normal wave forms and augmentation are seen. There is no sonographic evidence for deep venous thrombosis in the visualized segments of both lower extremities. IMPRESSION: No sonographic evidence for deep venous thrombosis in the visualized segments of both lower extremities.
== END 2018-05-08 00:17 | disposition home or self-care (01) ==
LOC: ED 21:46
DX: R60.0 Localized edema (principal); E11.9 Type 2 diabetes mellitus without complications; F17.210 Nicotine dependence, cigarettes, uncomplicated; I10 Essential (primary) hypertension; I25.10 Atherosclerotic heart disease of native coronary artery without angina pectoris; J44.9 Chronic obstructive pulmonary disease, unspecified

== ENCOUNTER 2018-10-14 05:01 | Emergency (ER) | payer MEDICARE, MEDICAID ==
[2018-10-14 05:02] VITALS: BMI 24.0
--- NOTE | 2018-10-14 05:40 | ED PDOC ---
Arrival/HPI - General Chief Complaint: Shortness Of Breath Time Seen by Provider: 10/14/18 05:07 Historian: Patient - History of Present Illness Narrative History of Present Illness (Text): 10/14/18 05:34 58 year old female, whose past medical history includes CAD last stent placement four weeks ago, COPD, and diabetes on januvia, presents to the emergency department with shortness of breath, for 2 days. Patient states she was put on steroids by her PMD with no relief. Patient states she woke up this morning with her symptoms worsening. Patient informs she is a former smoker, recently quit. Patient informs of some fever, chills, and cough. Patient denies any headache, dizziness, chest pain, abdominal pain, nausea, vomiting, diarrhea, back pain, neck pain, or any other complaint. Time/Duration: < week (2 days) Symptom Onset: Gradual Symptom Course: Unchanged Activities at Onset: Light Past Medical History - Provider Review Nursing Documentation Reviewed: Yes - Infectious Disease Hx of Infectious Diseases: None - Tetanus Immunization Tetanus Immunization: Unknown - Reproductive Menopause: No - Cardiac Hx Cardiac Disorders: Yes Hx Angina: Yes Hx Hypertension: Yes - Pulmonary Hx Respiratory Disorders: Yes Hx Asthma: Yes Hx Chronic Obstructive Pulmonary Disease (COPD): Yes Hx Pneumonia: Yes - Neurological Hx Paralysis: No - HEENT Hx HEENT Disorder: No - Renal Hx Renal Disorder: No - Endocrine/Metabolic Hx Diabetes Mellitus Type 2: Yes - Hematological/Oncological Hx Blood Transfusions: No Hx Blood Transfusion Reaction: No - Integumentary Hx Dermatological Disorder: No - Musculoskeletal/Rheumatological Hx Musculoskeletal Disorders: Yes Hx Arthritis: Yes Hx Degenerative Joint Disease: Yes Hx Falls: No - Gastrointestinal Hx Gastrointestinal Disorders: Yes Hx Diverticulitis: Yes Other/Comment: COLON POLYPS, - Genitourinary/Gynecological Hx Genitourinary Disorders: No - Psychiatric Hx Anxiety: Yes Hx Depression: Yes Hx Substance Use: No - Surgical History Hx Cardiac Catheterization: Yes (5 stents 04/2018) Hx Coronary Stent: Yes (04/2018) - Anesthesia Hx Anesthesia: Yes Hx Anesthesia Reactions: No Hx Malignant Hyperthermia: No - Suicidal Assessment Feels Threatened In Home Enviroment: No Family/Social History - Physician Review Nursing Documentation Reviewed: Yes Family/Social History: No Known Family HX Smoking Status: Light Smoker < 10 Cigarettes Daily Hx Alcohol Use: No Hx Substance Use: No Hx Substance Use Treatment: No Allergies/Home Meds Allergies/Adverse Reactions: Allergies erythromycin base [From E-Mycin] Allergy (Verified 05/07/18 21:56) ANAPHYLAXIS MYCINS Allergy (Mild, Uncoded 05/07/18 21:52) ANAPHYLAXIS Home Medications: Home Meds Medication Instructions Recorded Confirmed ALPRAZolam [Xanax] 1 mg PO TID PRN 03/28/18 10/14/18 Buspirone HCl 15 mg PO TID 03/28/18 10/14/18 Glipizide [Glucotrol] 10 mg PO DAILY 03/28/18 10/14/18 Montelukast Sodium [Singulair] 10 mg PO DAILY 03/28/18 10/14/18 Pregabalin [Lyrica] 1 cap PO BID 03/28/18 10/14/18 RX: Atenolol [Tenormin] 25 mg PO DAILY 03/28/18 10/14/18 Risperidone [Risperdal] 1 mg pe PO DAILY 03/28/18 10/14/18 SITagliptin [Januvia] 1 tab PO DAILY 03/28/18 10/14/18 Zolpidem Tartrate [Ambien] 10 mg PO HS 03/28/18 10/14/18 Albuterol/Ipratropium [Duoneb 3 1 inh NEB PRN PRN 05/07/18 10/14/18 mg/0.5 mg (3 ml) UD] Aspirin [Aspirin Chewable] 81 mg PO DAILY 05/07/18 10/14/18 Clopidogrel [Plavix] 75 mg PO DAILY 05/07/18 10/14/18 Levocetirizine Dihydrochloride 5 mg PO DAILY 05/07/18 10/14/18 [Xyzal] Review of Systems - Physician Review All systems were reviewed & negative as marked: Yes - Review of Systems Constitutional: Fevers, Night Sweats Respiratory: SOB, Cough Cardiovascular: absent: Chest Pain Gastrointestinal: absent: Abdominal Pain, Diarrhea, Nausea, Vomiting Musculoskeletal: absent: Back Pain, Neck Pain Neurological: absent: Headache, Dizziness Physical Exam - Systems Exam Head: Present: Atraumatic, Normocephalic Pupils: Present: PERRL Extroacular Muscles: Present: EOMI Conjunctiva: Present: Normal Mouth: Present: Moist Mucous Membranes Neck: Present: Normal Range of Motion Respiratory/Chest: Present: Clear to Auscultation, Good Air Exchange, Wheezes (diffuse wheeze), Rhonchi (scattered rhonchi ). No: Respiratory Distress, Accessory Muscle Use Cardiovascular: Present: Regular Rate and Rhythm, Normal S1, S2. No: Murmurs Abdomen: No: Tenderness, Distention, Peritoneal Signs Back: Present: Normal Inspection Upper Extremity: Present: Normal Inspection. No: Cyanosis, Edema Lower Extremity: Present: Normal Inspection. No: Edema Neurological: Present: Speech Normal Skin: Present: Warm, Dry, Normal Color. No: Rashes Psychiatric: Present: Alert, Oriented x 3, Normal Insight, Normal Concentration Medical Decision Making ED Course and Treatment: 10/14/18 05:55 Impression: 58 year female presents with COPD exacerbation. Plan: -- VBG -- CMP, Mg -- CBC -- Chest X-ray -- Tylenol -- Duoneb -- Blood cultures -- Reassess and disposition Prior Visits: Notes and results from previous visits were reviewed. Progress Notes: 10/14/18 05:57 EKG Reviewed by me, shows: Sinus rhythm @ 99 normal pr interval normal qrs abnormal qt interval non specific t wave changes 10/14/18 07:[address] Alston who was made aware of the patient's case and agrees with emergency department management plan to discharge patient with a prescription and recommendation for levquin. Patient is advised to follow up in his office and states he will be in the office today at 10:00 AM. Plan was discussed with patient who agreed and stated she will call the Dr. Alston. - Scribe Statement The provider has reviewed the documentation as recorded by the Robert Humphrey Provider Scribe Attestation: All medical record entries made by the Dalilaibava were at my direction and personally dictated by me. I have reviewed the chart and agree that the record accurately reflects my personal performance of the history, physical exam, medical decision making, and the department course for this patient. I have also personally directed, reviewed, and agree with the discharge instructions and disposition. Disposition/Present on Arrival - Present on Arrival Any Indicators Present on Arrival: Yes History of DVT/PE: No History of Uncontrolled Diabetes: Yes Urinary Catheter: No History of Decub. Ulcer: No History Surgical Site Infection Following: None - Disposition Have Diagnosis and Disposition been Completed?: Yes Diagnosis: COPD exacerbation, Hyperglycemia, Hypokalemia Disposition: HOME/ ROUTINE Disposition Time: 07:42 Patient Plan: Discharge Condition: STABLE Discharge Instructions (ExitCare): Hypokalemia (DC), Hyperglycemia, Adult (DC), Exacerbation of COPD (DC) Prescriptions: Levofloxacin [Levaquin] 750 mg PO DAILY #4 tablet Referrals: Alecia LEWIS,Yasmany Rodrigues MD [Family Provider] - Follow up with primary Forms: [employer] (Sinhala)
[2018-10-14] MEDS: Albuterol-Ipratrop 3 mg / 0.5 (3 ml) UD IH SCH ×3 (05:45→06:30)
[2018-10-14 06:01] LABS: BASO # 0.03 K/mm3 (0.0-2.0); BASO % 0.2 % (0.0-3.0); EOS # 0.1 (0.0-0.7); EOS % 0.4 % (1.5-5.0); GRAN # 11.54 (1.4-6.5); GRAN % 74.1 % (50.0-68.0); HEMOGLOBIN 14.6 g/dL (12.0-16.0); LYMPH # 2.6 (1.2-3.4); LYMPH % 16.7 % (22.0-35.0); MEAN CELL VOLUME 87.6 fl (80.0-105.0); MEAN CORPUSCULAR HEMOGLOBIN 29.8 pg (25.0-35.0); MONO # 1.3 (0.1-0.6); MONO % 8.6 % (1.0-6.0); RBC 4.9 10^6/uL (3.5-6.1); RED CELL DISTRIBUTION WIDTH 13.1 % (11.5-14.5); WHITE BLOOD COUNT 15.6 10^3/uL (4.5-11.0)
[2018-10-14 06:04] LABS: ALB/GLOB RATIO 1.1 (1.1-1.8); ALBUMIN 3.8 g/dL (3.0-4.8); ALT/SGPT 22 U/L (7-56); AST/SGOT 24 U/L (14-36); BLOOD UREA NITROGEN 9 mg/dL (7-21); CALCIUM 9.4 mg/dL (8.4-10.5); GFR NON-AFRICAN AMERICAN > 60
[2018-10-14 06:56] LABS: VENOUS BLOOD GAS BASE EXCESS 6.4 mmol/L (0.0-2.0); VENOUS BLOOD GAS PO2 88 mm/Hg (30-55); VENOUS BLOOD PH 7.43 (7.32-7.43)
[2018-10-14] MEDS ORDERED: levoFLOXacin 750 mg in D5W 750 MG/150 ML BAG IVPB STA (07:32)
[2018-10-14 07:33] VITALS: RESP 18; O2SAT 90
[2018-10-14] MEDS ORDERED: Potassium Chloride 20 mEq ER Tab PO STA (07:51)
[2018-10-14] MEDS ORDERED: levoFLOXacin 750 MG TAB PO STA (07:52)
[2018-10-14 08:05] VITALS: BP 114/57; PULSE 95; TEMP 98
--- NOTE | 2018-10-14 10:52 | RAD ---
Date of service: 10/14/2018 HISTORY: cough/fever COMPARISON: 12/08/2017 FINDINGS: LUNGS: Increased pulmonary markings particularly lower lobe distribution. Findings likely represent lower airway disease/bronchitis. If pneumonia is suspected repeat two-view chest recommended. PLEURA: No significant pleural effusion identified, no pneumothorax apparent. CARDIOVASCULAR: No atherosclerotic calcification present Normal. OSSEOUS STRUCTURES: No significant abnormalities. VISUALIZED UPPER ABDOMEN: Normal. OTHER FINDINGS: None. IMPRESSION: Prominent pulmonary markings compatible with lower airways disease, bronchitis. No discrete infiltrates these represent new findings compared to the prior study.
--- NOTE | 2018-10-14 19:26 | CARD ---
APPROVED REPORT Date of service: 10/14/2018 EKG Measurement Heart [id number] <Conclusion> Normal sinus rhythm Normal ECG
== END 2018-10-14 08:13 | disposition home or self-care (01) ==
LOC: ED 05:01
DX: J44.1 Chronic obstructive pulmonary disease with (acute) exacerbation (principal); E87.6 Hypokalemia; E11.65 Type 2 diabetes mellitus with hyperglycemia; F17.210 Nicotine dependence, cigarettes, uncomplicated; I10 Essential (primary) hypertension; I25.10 Atherosclerotic heart disease of native coronary artery without angina pectoris; Z79.84 Long term (current) use of oral hypoglycemic drugs

== ENCOUNTER 2018-12-19 16:22 | Emergency (ER) | payer MEDICARE, MEDICAID ==
[2018-12-19 16:25] VITALS: BMI 28.1
--- NOTE | 2018-12-19 16:51 | ED PDOC ---
Arrival/HPI - General Chief Complaint: Shortness Of Breath Time Seen by Provider: 12/19/18 16:28 Historian: Patient - History of Present Illness Narrative History of Present Illness (Text): 12/19/18 16:44 58 year old female, with past medical history of COPD, and CAD s/p stent placement x 5, presents to the Emergency department for evaluation of worsening cough and dyspnea on exertion for past few days. Patient reports wheezing unimproved after nebulizer treatments and exacerbated with exertion. Patient reports increase use of her nebulizer treatments recently. Patient informs contacting her PMD with the presented symptoms and was started on 10mg Prednisone daily for 5 days. Patient reports unchanged symptoms prompting her to present to the ED for evaluation. Patient denies any other associated somatic complaints. Patient denies any fevers, chills, headache, dizziness, chest pain, abdominal pain, nausea, vomiting, diarrhea, back pain, neck pain, or any other complaints. PMD A Alecia Time/Duration: 1 week Symptom Onset: Gradual Symptom Course: Unchanged Activities at Onset: Light Context: Home Past Medical History - Provider Review Nursing Documentation Reviewed: Yes - Infectious Disease Hx of Infectious Diseases: None - Tetanus Immunization Tetanus Immunization: Unknown - Cardiac Hx Cardiac Disorders: Yes Hx Angina: Yes Hx Hypertension: Yes Other/Comment: Cardiac cath with stents - Pulmonary Hx Respiratory Disorders: Yes Hx Asthma: Yes Hx Chronic Obstructive Pulmonary Disease (COPD): Yes Hx Pneumonia: Yes - Neurological Hx Paralysis: No - HEENT Hx HEENT Disorder: No - Renal Hx Renal Disorder: No - Endocrine/Metabolic Hx Diabetes Mellitus Type 2: Yes - Hematological/Oncological Hx Blood Transfusions: No Hx Blood Transfusion Reaction: No - Integumentary Hx Dermatological Disorder: No - Musculoskeletal/Rheumatological Hx Musculoskeletal Disorders: Yes Hx Arthritis: Yes Hx Degenerative Joint Disease: Yes Hx Falls: No - Gastrointestinal Hx Gastrointestinal Disorders: Yes Hx Diverticulitis: Yes Other/Comment: COLON POLYPS, - Genitourinary/Gynecological Hx Genitourinary Disorders: No - Psychiatric Hx Anxiety: Yes Hx Depression: Yes Hx Substance Use: No - Surgical History Hx Appendectomy: Yes Hx Cardiac Catheterization: Yes (5 stents 04/2018) Hx Cholecystectomy: Yes Hx Coronary Stent: Yes (04/2018) - Anesthesia Hx Anesthesia: Yes Hx Anesthesia Reactions: No Hx Malignant Hyperthermia: No - Suicidal Assessment Feels Threatened In Home Enviroment: No Family/Social History - Physician Review Nursing Documentation Reviewed: Yes Family/Social History: No Known Family HX Smoking Status: Light Smoker < 10 Cigarettes Daily Hx Alcohol Use: No Hx Substance Use: No Hx Substance Use Treatment: No Allergies/Home Meds Allergies/Adverse Reactions: Allergies erythromycin base [From E-Mycin] Allergy (Verified 12/19/18 16:25) ANAPHYLAXIS MYCINS Allergy (Mild, Uncoded 12/19/18 16:25) ANAPHYLAXIS Home Medications: Home Meds Medication Instructions Recorded Confirmed ALPRAZolam [Xanax] 1 mg PO TID PRN 03/28/18 10/14/18 Atenolol [Tenormin] 25 mg PO DAILY 03/28/18 10/14/18 Buspirone HCl 15 mg PO TID 03/28/18 10/14/18 Glipizide [Glucotrol] 10 mg PO DAILY 03/28/18 10/14/18 Montelukast Sodium [Singulair] 10 mg PO DAILY 03/28/18 10/14/18 Pregabalin [Lyrica] 1 cap PO BID 03/28/18 10/14/18 Risperidone [Risperdal] 1 mg pe PO DAILY 03/28/18 10/14/18 SITagliptin [Januvia] 1 tab PO DAILY 03/28/18 10/14/18 Zolpidem Tartrate [Ambien] 10 mg PO HS 03/28/18 10/14/18 Albuterol/Ipratropium [Duoneb 3 1 inh NEB PRN PRN 05/07/18 10/14/18 mg/0.5 mg (3 ml) UD] Aspirin [Aspirin Chewable] 81 mg PO DAILY 05/07/18 10/14/18 Clopidogrel [Plavix] 75 mg PO DAILY 05/07/18 10/14/18 Levocetirizine Dihydrochloride 5 mg PO DAILY 05/07/18 10/14/18 [Xyzal] Review of Systems - Physician Review All systems were reviewed & negative as marked: Yes - Review of Systems Constitutional: absent: Fevers Respiratory: SOB, Cough, Wheezing Cardiovascular: absent: Chest Pain Gastrointestinal: absent: Abdominal Pain, Diarrhea, Nausea, Vomiting Genitourinary Female: absent: Dysuria, Urine Output Changes Musculoskeletal: absent: Back Pain, Neck Pain Skin: absent: Rash Neurological: absent: Headache, Dizziness Psychiatric: absent: Anxiety Physical Exam Appearance: Positive for: Well-Appearing, Non-Toxic, Comfortable Pain Distress: None Mental Status: Positive for: Alert and Oriented X 3 - Systems Exam Head: Present: Atraumatic, Normocephalic Pupils: Present: PERRL Extroacular Muscles: Present: EOMI Conjunctiva: Present: Normal Mouth: Present: Moist Mucous Membranes Respiratory/Chest: Present: Wheezes (expiratory wheeze), Decreased Breath Sounds, Other (speaking in full sentences). No: Respiratory Distress, Accessory Muscle Use Cardiovascular: Present: Regular Rate and Rhythm, Normal S1, S2. No: Murmurs Abdomen: No: Tenderness, Distention, Peritoneal Signs Back: Present: Normal Inspection Upper Extremity: Present: Normal Inspection. No: Cyanosis, Edema Lower Extremity: Present: Normal Inspection. No: Edema Neurological: Present: GCS=15, CN II-XII Intact, Speech Normal Skin: Present: Warm, Dry, Normal Color. No: Rashes Psychiatric: Present: Alert, Oriented x 3, Normal Insight, Normal Concentration Medical Decision Making ED Course and Treatment: 12/19/18 16:37 Impression: 58 year old female presents to the ED for evaluation of shortness of breath and cough. Differential Diagnosis included but are not limited to: COPD exacerbation Plan: -- EKG -- Labs -- CXR -- Duoneb -- Solumedro -- Reassess and disposition Prior Visits: Notes and results from previous visits were reviewed. Progress Notes: EKG: NSR at 82 bpm, (-) acute ST changes, as read by JUNIOR. CXR : NAD, as read by PA Lab results reviewed and within normal limits, including negative troponin and negative BNP 12/19/18 18:15 On reevaluation, patient reports improvement of symptoms, denies any chest pain, shortness of breath or back pain. On exam, patient remains awake alert and oriented 3 in no acute distress, speaking in full sentences. VS : P 86 BP 133/79 O2sat 95%RA. Lungs : BS equal bilaterally, with very faint expiratory wheezing only audible at the bases, cardiac regular rate and rhythm, repeat neuro exam shows no focal findings. Diagnostic results discussed with the patient in great detail. Patient verbalized that she feels significantly improved and that she wants to go home. Patient is comfortable going home and agrees with discussing the case with her PMD for final disposition. Case discussed with Dr. Alston, he states that the patient can be discharged and she can follow-up in his office tomorrow. Advised to follow up with primary care physician tomorrow without fail. Return to the emergency room at any time for any new or worsening symptoms. Patient states she fully agrees with and understands discharge instructions. States that she agrees with the plan and disposition. Verbalized and repeated discharge instructions and plan. I have given the patient opportunity to ask any additional questions. 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 - Scribe Statement The provider has reviewed the documentation as recorded by the Scribe Haresh Hamilton. All medical record entries made by the Scribe were at my direction and personally dictated by me. I have reviewed the chart and agree that the record accurately reflects my personal performance of the history, physical exam, medical decision making, and the department course for this patient. I have also personally directed, reviewed, and agree with the discharge instructions and disposition. Disposition/Present on Arrival - Present on Arrival Any Indicators Present on Arrival: Yes History of DVT/PE: No History of Uncontrolled Diabetes: Yes Urinary Catheter: No History of Decub. Ulcer: No History Surgical Site Infection Following: None - Disposition Have Diagnosis and Disposition been Completed?: Yes Diagnosis: COPD exacerbation Disposition: HOME/ ROUTINE Disposition Time: 18:15 Patient Plan: Discharge Patient Problems: Current Active Problems Problem Status Onset COPD exacerbation Acute Condition: STABLE Discharge Instructions (ExitCare): Chronic Obstructive Pulmonary Disease (COPD), Including Emphysema Additional Instructions: Thank you for letting us take care of you today. You were treated for COPD exacerbation. The emergency medical care you received today was directed at your acute symptoms. Return to the Emergency Department if your symptoms worsen, do not improve, or if you have any other problems. Please see your doctor tomorrow for re-evaluation and follow up. Bring any paperwork you were given at discharge with you along with any medications you are taking to your follow up visit. Our treatment cannot replace ongoing medical care by a primary care provider (PCP) outside of the emergency department. Thank you for allowing the [facility] team to be part of your care today. Referrals: Freddy Alston MD [Primary Care Provider] - Follow up with primary Forms: [employer] (Khmer)
[2018-12-19 16:59] VITALS: TEMP 98
[2018-12-19] MEDS: Albuterol-Ipratrop 3 mg / 0.5 (3 ml) UD IH SCH ×3 (17:03→17:25)
[2018-12-19 17:15] LABS: ALB/GLOB RATIO 1.4 (1.1-1.8); ALT/SGPT 32 U/L (7-56); AST/SGOT 31 U/L (14-36); BLOOD UREA NITROGEN 9 mg/dL (7-21); CALCIUM 10.3 mg/dL (8.4-10.5); GFR NON-AFRICAN AMERICAN > 60
--- NOTE | 2018-12-19 17:18 | RAD ---
Date of service: 12/19/2018 HISTORY: Shortness of breath. COMPARISON: 10/14/2018. FINDINGS: LUNGS: No active pulmonary disease. PLEURA: No significant pleural effusion identified, no pneumothorax apparent. CARDIOVASCULAR: No atherosclerotic calcification present Normal. OSSEOUS STRUCTURES: No significant abnormalities. VISUALIZED UPPER ABDOMEN: Normal. OTHER FINDINGS: None. IMPRESSION: No active disease.
[2018-12-19 17:19] LABS: BASO # 0.02 K/mm3 (0.0-2.0); BASO % 0.2 % (0.0-3.0); EOS % 0.1 % (1.5-5.0); HEMOGLOBIN 16.1 g/dL (12.0-16.0); LYMPH # 3.1 (1.2-3.4); MEAN CELL VOLUME 85.9 fl (80.0-105.0); MEAN CORPUSCULAR HEMOGLOBIN 29.9 pg (25.0-35.0); MEAN CORPUSCULAR HGB CONC 34.8 g/dl (31.0-37.0); MEAN PLATELET VOLUME 9.5 fl (7.0-11.0); MONO # 0.9 (0.1-0.6); MONO % 8.6 % (1.0-6.0); RBC 5.39 10^6/uL (3.5-6.1)
[2018-12-19 17:22] LABS: INR 1.14; PARTIAL THROMBOPLASTIN TIME 31.4 Seconds (26.9-38.3); PROTHROMBIN TIME 12.6 SECONDS (9.4-12.5)
[2018-12-19 17:27] LABS: B-TYPE NATRIURETIC PEPTIDE 259 pg/mL (0-450); TROPONIN I < 0.01 ng/mL
[2018-12-19 17:54] VITALS: BP 133/79; PULSE 86; RESP 18; O2SAT 95
--- NOTE | 2018-12-19 23:23 | CARD ---
APPROVED REPORT Date of service: 12/19/2018 EKG Measurement Heart [id number] <Conclusion> Normal sinus rhythm Normal ECG
== END 2018-12-19 18:38 | disposition home or self-care (01) ==
LOC: ED 16:22
DX: J44.1 Chronic obstructive pulmonary disease with (acute) exacerbation (principal)
CPT/HCPCS: 71045; 80053; 82550; 83615; 83735; 83880; 84484; 85025; 85610; 85730; 93005; 94150; 96374; 99285; J2930

== ENCOUNTER 2019-01-11 12:38 | Outpatient (CLI) | payer MEDICARE, MEDICAID | END 2019-01-11 12:39 | disposition home or self-care (01) | LOC: RAD 12:38 ==